=== PATIENT | female | born 1990 | race Caucasian/White ===

== ENCOUNTER 2017-08-29 17:39 | Emergency (ER) | payer MEDICAID, SELFPAY ==
[2017-08-29 17:40] VITALS: BP 140/91; PULSE 102; RESP 16; TEMP 36.6; BMI 48.7
--- NOTE | 2017-08-29 17:59 | ED.VISSUMM ---
- ER Visit Summary Date of Service: 08/29/17 Chief Complaint: [Dental pain] History of Present Illness: The patient is a 27 F [presents to the emergency department chief complaint of dental pain off and on for several years. Patient states that she recently saw an oral surgeon who is going to see her again in September and determine if she will need 1 or 2 extraction surgeries to have her teeth removed. Patient states the pains been off and on but over the last 2 days she has developed discomfort to both right and left lower molars. Patient denies any trauma. She denies any fevers. Patient does complain of cold sensitivity.] Physical Examination: [HEENT-PERRLA, EOMI. Cranial nerves II through XII grossly intact. TMs clear. Mucous membranes moist. No adenopathy. Dentition-patient has broken and carried right and left lower second and third molars that are tender to palpation. There is no evidence of gingival erythema or abscess formation. No facial swelling noted. Cardiovascular-regular rate and rhythm without murmur or ectopy Lungs-clear to auscultation, chest wall stable without crepitus or subcu emphysema Abdomen-normoactive bowel sounds, soft, nontender, no rebound or rigidity, no peritoneal signs. Extremities-intact ?4, normal range of motion, normal pulses, atraumatic] Test Results: [None indicated] Emergency Department Course and Treatment: [I did perform an OARS report on the patient and it was noted that she has only had one prescription in the last year for narcotics.] Treatment Plan: [Patient will be given a prescription for amoxicillin and [place] for pain.] Disposition: [Discharged to home in stable condition] Impression: [Dental pain] This note was generated with [employer] dictation software. It may contain incorrect words, spelling, and punctuation that were not noted in review of the chart prior to signing ED Disposition - Plan for ED Patient: Chief Complaint: Dental Referrals: Mayte Davis MD [Primary Care Provider] -
--- NOTE | 2017-08-29 18:03 | DCINST.ED_ITS ---
ED Disposition - Plan for ED Patient: Chief Complaint: Dental Instructions: ED Tooth Pain Prescriptions: Hydrocodone Bitart/Apap 5-325 [[place] 5/325] 1 - 2 tab PO Q4H PRN PRN #20 tab PRN Reason: Pain Amoxicillin 500 mg PO TID #30 tab Referrals: Mayte Davis MD [Primary Care Provider] - Additional Instructions: see your dentist for follow up in 5-7 days
== END 2017-08-29 18:22 | disposition home or self-care (01) ==
PROVIDERS: Emergency Provider Emergency Medicine; Family Provider Family Medicine; PCP Family Medicine
DX: K08.89 Other specified disorders of teeth and supporting structures (principal); K02.9 Dental caries, unspecified; Z72.0 Tobacco use
CPT/HCPCS: 99282

== ENCOUNTER → 2017-09-08 13:37 | Outpatient (CLI) | payer MEDICAID, SELFPAY ==
[2017-09-08 13:18] VITALS: BP 131/78; BMI 48.4
[2017-09-08 15:52] LABS: hCG Titer Quant., Serum 80 mIU/mL (<9 non-preg)
== END ==
PROVIDERS: Family Provider Family Medicine; PCP Family Medicine; Visit Provider Nurse Practitioner Women's Health
DX: N92.6 Irregular menstruation, unspecified (principal)
CPT/HCPCS: 36415; 84702

== ENCOUNTER → 2017-09-10 10:46 | Outpatient (CLI) | payer MEDICAID, SELFPAY ==
[2017-09-10 11:27] LABS: hCG Titer Quant., Serum 151 mIU/mL (<9 non-preg)
== END ==
PROVIDERS: Family Provider Family Medicine; PCP Family Medicine; Visit Provider Nurse Practitioner Women's Health
DX: Z34.90 Encounter for supervision of normal pregnancy, unspecified, unspecified trimester (principal)
CPT/HCPCS: 36415; 84702

== ENCOUNTER → 2017-10-13 18:39 | Outpatient (CLI) | payer MEDICAID, SELFPAY ==
[2017-10-13 22:50] LABS: Chlamydia Trachomatis by PCR Negative (Negative); Neisserai gonorrhoeae by PCR Negative (Negative); Probe Check PASS; Sample Adequacy Control PASS; Specimen Processing Control PASS
[2017-10-18 10:17] LABS: HPV Reflexed? NOT INDICATED
== END ==
PROVIDERS: Family Provider Family Medicine; PCP Family Medicine; Visit Provider Obstetrics & Gynecology
DX: O09.71 Supervision of high risk pregnancy due to social problems, first trimester (principal); Z12.4 Encounter for screening for malignant neoplasm of cervix
CPT/HCPCS: 87086; 87088; 87491; 87591; 88175; G0145

== ENCOUNTER → 2017-10-19 13:05 | Outpatient (CLI) | payer MEDICAID, SELFPAY ==
[2017-10-19 14:11] LABS: Absolute Lymphocyte Count 2.52 X10^3/ul (0.83-4.51); Basophil# 0.02 X10^3/uL; Basophil% 0.2 % (0-1); Eosinophil# 0.16 X10^3/uL; Eosinophils% 1.8 % (0-5); Hematocrit 37.7 % (37-47); Hemoglobin 12.8 g/dl (12.0-15.0); Lymphocyte # 2.52 X10^3/ul (4.0); Mean Corpuscular Hgb 30.5 pg (27.0-32.0); Mean Corpuscular Volume 89.8 fL (81-99); Monocyte# 0.28 X10^3/uL; Monocyte% 3.1 % (0-10); Neutrophil # 6.01 X10^3/uL (2.7-7.7); Neutrophil % 66.8 % (47-70); Platelet Count 264 K/mm3 (150-450); RBC Distribution Width CV 12.9 % (11.6-14.6); RBC Distribution Width SD 41.5 fl (35.1-43.9)
[2017-10-19 14:12] LABS: POSITIVE COUNT NO; POSITIVE DIFFERENTIAL NO; POSITIVE MORPHOLOGY NO
[2017-10-19 14:39] LABS: Glucose Challenge Gest 1H 50g 119 mg/dL (70-140)
[2017-10-19 15:28] LABS: HIV - WCH Non-Reactive (Nonreactive); Rubella IgG 65.2 IU/mL
[2017-10-20 12:41] LABS: HEPATITIS B SURFACE AG Negative (Negative)
[2017-10-21 03:11] LABS: Rapid Plasmin Reagin (RPR) NONREACTIVE (NONREACTIVE)
== END ==
PROVIDERS: Visit Provider Obstetrics & Gynecology
DX: O09.71 Supervision of high risk pregnancy due to social problems, first trimester (principal)
CPT/HCPCS: 36415; 82950; 85025; 86592; 86703; 86762; 86850; 86900; 87340

== ENCOUNTER → 2017-11-14 13:35 | Outpatient (CLI) | payer MEDICAID, SELFPAY | DX: Z36.82 Encounter for antenatal screening for nuchal translucency (principal) | CPT/HCPCS: 36415 ==

== ENCOUNTER → 2018-01-02 12:53 | Outpatient (CLI) | payer MEDICAID, SELFPAY ==
--- NOTE | 2018-01-02 12:53 | DT_ITS ---
This patient was seen during an EMR downtime January 02, 2018 - January 09, 2018. This patient may have a combination of paper and electronic documentation or all paper documentation. All documentation is viewable within the e-chart portion of [facility] for each patient visit.
--- NOTE | 2018-01-02 13:00 | US_ITS ---
STUDY: SECOND AND THIRD TRIMESTER OBSTETRICAL ULTRASOUND REASON FOR EXAM: Female, 27 years old. ANATOMY LMP: TECHNIQUE: Transabdominal PRIOR ULTRASOUND: None. FINDINGS: There is a single intrauterine fetus. The fetus is in a cephalic presentation. There is demonstrated cardiac activity with a heart rate of 138 bpm. There is a normal amniotic fluid volume. The largest amniotic fluid pocket measures 7.4 cm. The placenta is posterior in location and is not low lying. There are Grade 1 placental changes. The cervix measures 55 mm in length. The adnexal regions are not visualized. BIOMETRY: BPD: 50mm: 21 weeks, 2 days HC: 187mm: 21 weeks, 0 days AC: 156mm: 21 weeks, 6 days FL: 35mm: 21 weeks, 0 days CI: 78 FL/BPD: 68 FL/AC: 22 HC/AC: 1.19 age by current US: 21 weeks, 1 days. ALY by current US: 05.14.18. Estimated weight: 382 grams, +/- 56 grams, 69 %. Age by LMP: 20 weeks, 3 days. ALY by LMP: 05.19.18. ANATOMY: Gender: Female Cranium: Normal lateral ventricles. Normal choroid plexus. Normal cerebellum. Normal cisterna magna. Normal face, nose and lips. Chest: Normal 4-chamber heart. Abdomen/Pelvis: Normal diaphragm. Normal stomach. Normal abdominal wall. Normal cord insertion. Normal 3 vessel cord. Normal kidneys. Normal bladder. Spine: Normal cervical spine. Normal thoracic spine. Normal lumbar spine. Normal sacrum. Extremities: Normal bilateral upper extremities. Normal bilateral lower extremities. US/OB Anatomy Scan IMPRESSION: There is a single live intrauterine with a heart rate of 138 bpm. age by current US: 21 weeks, 1 days. ALY by current US: 18. Normal anatomic survey. Electronically Signed: Moreno Lorenzo MD at 20:55 EDT , Service support ,
== END ==
PROVIDERS: Visit Provider Obstetrics & Gynecology
DX: Z36.89 Encounter for other specified antenatal screening (principal)
CPT/HCPCS: 76805

== ENCOUNTER → 2018-01-03 16:00 | Outpatient (CLI) | payer MEDICAID, SELFPAY ==
--- NOTE | 2018-01-03 16:00 | DT_ITS ---
This patient was seen during an EMR downtime January 02, 2018 - January 09, 2018. This patient may have a combination of paper and electronic documentation or all paper documentation. All documentation is viewable within the e-chart portion of [facility] for each patient visit.
[2018-01-09 21:19] LABS: Amphetamine Urine VISTA NEGATIVE (<1000 ng/mL); Barbiturate Urine VISTA NEGATIVE (< 200 ng/mL); Benzodiazepine Urine VISTA NEGATIVE (< 200 ng/mL); Cocaine Urine VISTA NEGATIVE (< 300 ng/mL); Ecstacy Urine VISTA NEGATIVE (< 500 ng/mL); Methadone Urine VISTA NEGATIVE (< 300 ng/mL); PCP Urine VISTA NEGATIVE (< 25 ng/mL); THC Urine VISTA NEGATIVE (< 50 ng/mL)
== END ==
PROVIDERS: Visit Provider Obstetrics & Gynecology
DX: F19.11 Other psychoactive substance abuse, in remission (principal)
CPT/HCPCS: 80307

== ENCOUNTER → 2018-02-28 18:30 | Outpatient (CLI) | payer MEDICAID, SELFPAY ==
[2018-02-28 19:16] LABS: Amphetamine Urine VISTA NEGATIVE (<1000 ng/mL); Barbiturate Urine VISTA NEGATIVE (< 200 ng/mL); Benzodiazepine Urine VISTA NEGATIVE (< 200 ng/mL); Cocaine Urine VISTA NEGATIVE (< 300 ng/mL); Ecstacy Urine VISTA NEGATIVE (< 500 ng/mL); Methadone Urine VISTA NEGATIVE (< 300 ng/mL); PCP Urine VISTA NEGATIVE (< 25 ng/mL); THC Urine VISTA NEGATIVE (< 50 ng/mL); Vista UDS pH Range 6
== END ==
PROVIDERS: Visit Provider Nurse Practitioner Women's Health
DX: O09.70 Supervision of high risk pregnancy due to social problems, unspecified trimester (principal); Z02.83 Encounter for blood-alcohol and blood-drug test; Z3A.00 Weeks of gestation of pregnancy not specified
CPT/HCPCS: 80307

== ENCOUNTER → 2018-03-14 15:26 | Outpatient (CLI) | payer MEDICAID, SELFPAY ==
[2018-03-14 17:15] LABS: Absolute Lymphocyte Count 1.78 X10^3/ul (0.83-4.51); Absolute Neutrophil Count 5.5 X10^3/uL (2.0-7.7); Basophil# 0.01 X10^3/uL; Basophil% 0.1 % (0-1); Eosinophil# 0.15 X10^3/uL; Eosinophils% 1.8 % (0-5); Hematocrit 34.6 % (37-47); Hemoglobin 11.6 g/dl (12.0-15.0); Lymphocyte # 1.78 X10^3/ul (4.0); Lymphocyte % 21.8 % (19-41); Mean Corp Hgb Conc 33.5 g/gl (32-36); Mean Corpuscular Hgb 30.8 pg (27.0-32.0); Mean Corpuscular Volume 91.8 fL (81-99); Monocyte# 0.73 X10^3/uL; Monocyte% 8.9 % (0-10); Neutrophil # 5.47 X10^3/uL (2.7-7.7); Neutrophil % 67.2 % (47-70); Platelet Count 266 K/mm3 (150-450); RBC Distribution Width CV 13.6 % (11.6-14.6); RBC Distribution Width SD 44.9 fl (35.1-43.9); Red Blood Count 3.77 M/mm3 (4.2-5.4); White Blood Count 8.2 K/mm3 (4.4-11.0)
[2018-03-14 17:17] LABS: POSITIVE COUNT NO; POSITIVE DIFFERENTIAL NO; POSITIVE MORPHOLOGY NO
[2018-03-14 17:23] LABS: Glucose Challenge Gest 1H 50g 110 mg/dL (70-140)
== END ==
PROVIDERS: Visit Provider Nurse Practitioner Women's Health
DX: O09.70 Supervision of high risk pregnancy due to social problems, unspecified trimester (principal); Z3A.00 Weeks of gestation of pregnancy not specified
CPT/HCPCS: 36415; 82950; 85025

== ENCOUNTER → 2018-03-24 16:44 | Outpatient (CLI) | payer MEDICAID, SELFPAY | PROVIDERS: Family Provider Family Medicine; PCP Family Medicine; Visit Provider Obstetrics & Gynecology | DX: Z68.42 Body mass index [BMI] 45.0-49.9, adult (principal) | CPT/HCPCS: 76816 ==

== ENCOUNTER 2018-04-03 18:35 | Outpatient (CLI) | payer MEDICAID, SELFPAY ==
[2018-04-03 19:03] VITALS: BMI 48.9
[2018-04-03 19:47] LABS: Glucose, Dipstick Normal (Normal); Ketone-Dipstick 15 mg/dl (Negative); Leukocyte Esterase-Dipstick 500 /ul (Negative); Nitrite-Dipstick Negative (Negative); Occult Blood-Urine 50 /ul (Negative); Protein-Dipstick 30 mg/dl (Negative); Urine Urobilinogen 4 mg/dl (Normal)
[2018-04-03 19:49] LABS: Color, Urine Yellow (Yellow); Urine Bilirubin Dipstick 1 mg/dL (Negative); Urine Clarity Clear (Clear)
[2018-04-03 20:28] LABS: Fetal Fibronectin Negative
[2018-04-03] MEDS: Cephalexin Suspension 250 MG/5 ML PO.SYRINGE 500 MG PO (21:15)
--- NOTE | 2018-04-03 21:37 | OB.TRI.NOTE ---
- Problem List (1) 33 weeks gestation of Status: Acute History of Present Illness Date of Service: 04/03/18 Was patient seen by the physician?: No Reason For Visit: R/O LABOR Final ALY: 05/19/18 Gestational age: 33 Weeks and 3 Days History of Present Illness: 27yo @ 33 3/7wga with c/o pelvic pressure. Denies vaginal bleeding, leaking of fluid. Fetus active. Allergies No Known Allergies Allergy (Verified 03/28/18 16:07) - Pertinent Past Medical History Medical History: Past Medical History (Last Reviewed 03/28/18 @ 16:08 by Yanni Linton) Preeclampsia NST - FHR Rate Baby A Baseline: 120 Variability:: Moderate Accelerations:: 15 x 15 Decelerations:: None NST Reactive:: Yes FHR Category:: Category I Uterine Activity:: 0/10 min Impression/Plan 89yo @ 33 3/7wga with acute cystitis, Cat I FHR -FFN negative -U/A c/w UTI -Single dose Cephalexin administered, rx placed for outpatient therapy -d/c home -Consider outpatient LFTs given elevated bili on U/A.
== END 2018-04-03 21:20 | disposition home or self-care (01) ==
LOC: WPOUT 18:44 → WP 18:46
PROVIDERS: Family Provider Family Medicine; PCP Family Medicine; Visit Provider Obstetrics & Gynecology
DX: O23.13 Infections of bladder in pregnancy, third trimester (principal); N30.00 Acute cystitis without hematuria; Z3A.33 33 weeks gestation of pregnancy
CPT/HCPCS: 59025; 59050; 81002; 82731; 99218; G0378

== ENCOUNTER 2018-04-05 15:30 | Outpatient (CLI) | payer MEDICAID, SELFPAY ==
[2018-04-05 16:11] VITALS: BMI 49.0
[2018-04-05] MEDS: Lactated Ringers 1,000 ML 999 ML IV (16:13)
[2018-04-05 17:11] LABS: Absolute Lymphocyte Count 2.17 X10^3/ul (0.83-4.51); Absolute Neutrophil Count 7.7 X10^3/uL (2.0-7.7); Basophil# 0.02 X10^3/uL; Basophil% 0.2 % (0-1); Eosinophil# 0.21 X10^3/uL; Hematocrit 33.6 % (37-47); Hemoglobin 11.4 g/dl (12.0-15.0); Lymphocyte # 2.17 X10^3/ul (4.0); Lymphocyte % 20.5 % (19-41); Mean Corp Hgb Conc 33.9 g/gl (32-36); Mean Corpuscular Volume 91.3 fL (81-99); Mean Platelet Vol. 9.1 fl (6.2-12.0); Monocyte# 0.48 X10^3/uL; Monocyte% 4.5 % (0-10); Neutrophil # 7.67 X10^3/uL (2.7-7.7); Neutrophil % 72.5 % (47-70); Platelet Count 228 K/mm3 (150-450); RBC Distribution Width CV 13.6 % (11.6-14.6); RBC Distribution Width SD 44.1 fl (35.1-43.9); Red Blood Count 3.68 M/mm3 (4.2-5.4); White Blood Count 10.6 K/mm3 (4.4-11.0)
[2018-04-05 17:43] LABS: Fibrinogen 564 mg/dl (203-444)
[2018-04-05 17:47] LABS: POSITIVE COUNT NO; POSITIVE DIFFERENTIAL NO; POSITIVE MORPHOLOGY NO
[2018-04-05 18:16] LABS: Amphetamine Urine VISTA NEGATIVE (<1000 ng/mL); Barbiturate Urine VISTA NEGATIVE (< 200 ng/mL); Benzodiazepine Urine VISTA NEGATIVE (< 200 ng/mL); Cocaine Urine VISTA NEGATIVE (< 300 ng/mL); Ecstacy Urine VISTA NEGATIVE (< 500 ng/mL); Methadone Urine VISTA NEGATIVE (< 300 ng/mL); PCP Urine VISTA NEGATIVE (< 25 ng/mL); THC Urine VISTA NEGATIVE (< 50 ng/mL); Vista UDS pH Range 6
--- NOTE | 2018-04-06 17:09 | OB.TRI.NOTE ---
- Problem List (1) Threatened labor Status: Acute History of Present Illness Date of Service: 04/05/18 Reason For Visit: R/O LABOR History of Present Illness: co ctx and had questionable heart rate pattern in the office Allergies No Known Allergies Allergy (Verified 04/05/18 14:53) - Pertinent Past Medical History Medical History: Past Medical History (Last Reviewed 04/05/18 @ 14:53 by Macy Amezcua) Preeclampsia NST - FHR Rate Baby A Baseline: 140 Variability:: Moderate Accelerations:: 15 x 15 Decelerations:: None NST Reactive:: Yes FHR Category:: Category I Uterine Activity:: irregular Impression/Plan threatened labor. reassuring FHT tracing. labs WNL. reactive nst dc home
== END 2018-04-05 18:25 | disposition home or self-care (01) ==
LOC: WPOUT 15:33 → WP 15:33
PROVIDERS: Family Provider Family Medicine; PCP Family Medicine; Visit Provider Obstetrics & Gynecology
DX: O60.00 Preterm labor without delivery, unspecified trimester (principal); Z3A.00 Weeks of gestation of pregnancy not specified
CPT/HCPCS: 96360; 96361; 36415; 59025; 59050; 80307; 85025; 85384; 86850; 86900; 99218; J7120; G0378

== ENCOUNTER 2018-04-16 20:05 | Outpatient (CLI) | payer MEDICAID, SELFPAY ==
[2018-04-16 20:29] VITALS: BMI 49.8
[2018-04-16 20:43] LABS: Red Blood Cells-Urine 0 SEEN /hpf (0-5)
[2018-04-16 20:46] LABS: Color, Urine Yellow (Yellow); Glucose, Dipstick Normal (Normal); Ketone-Dipstick 5 mg/dl (Negative); Leukocyte Esterase-Dipstick 500 /ul (Negative); Nitrite-Dipstick Negative (Negative); Occult Blood-Urine 10 /ul (Negative); Protein-Dipstick 30 mg/dl (Negative); Specific Gravity, Urine 1.025 (1.002-1.030); Urine Bilirubin Dipstick Negative (Negative); Urine Clarity Sl. Cloudy (Clear); Urine Urobilinogen 4 mg/dl (Normal); Urine pH 6.5 (5.0 - 8.0)
[2018-04-16 20:54] LABS: Bacteria 1+ /hpf (None Seen); Mucous, Urine 1+ /hpf (<or=2+); Squamous Epithelial Cells - UA 10-25 SEEN /hpf (5-10); White Blood Cells 0-5 SEEN /hpf (0-5)
[2018-04-16 20:55] LABS: Calcium Oxalate Crystals Ur 2+ /hpf (<or=2+)
[2018-04-16] MEDS: Nitrofurantoin Macrocrystals 100 MG Capsule PO (21:34)
--- NOTE | 2018-04-20 22:37 | OB.TRI.NOTE ---
- Problem List (1) Threatened labor Status: Acute History of Present Illness Date of Service: 04/16/18 Reason For Visit: R/O LABOR Date of Service: 04/16/18 History of Present Illness: co ctx Allergies No Known Allergies Allergy (Verified 04/11/18 15:42) - Pertinent Past Medical History Medical History: Past Medical History (Last Reviewed 04/11/18 @ 15:43 by Heather Braun) Preeclampsia NST - FHR Rate Baby A Baseline: 130 Variability:: Moderate Accelerations:: 15 x 15 Decelerations:: None NST Reactive:: Yes FHR Category:: Category I Uterine Activity:: irregular Impression/Plan threatened PTL no cervical change reactive nst dc home
== END 2018-04-16 21:35 | disposition home or self-care (01) ==
LOC: WPOUT 20:26 → WP 20:28
PROVIDERS: Family Provider Family Medicine; PCP Family Medicine; Visit Provider Obstetrics & Gynecology
DX: O60.03 Preterm labor without delivery, third trimester (principal); Z3A.00 Weeks of gestation of pregnancy not specified
CPT/HCPCS: 59025; 59050; 81001; 87086; 87088; 99218; G0378

== ENCOUNTER → 2018-04-25 19:05 | Outpatient (CLI) | payer MEDICAID, SELFPAY ==
[2018-04-25 19:39] LABS: Protein, Urine (Random) 9.3 mg/dL (<11.9); Protein:Creat Ratio 174 mg/g CRE (0-200)
[2018-04-25 20:38] LABS: Group B Strep DNA By PCR Negative (Negative); Internal Control PASS; Probe Check PASS; Specimen Processing Control PASS
[2018-04-25 21:35] LABS: Chlamydia Trachomatis by PCR Negative (Negative); Neisserai gonorrhoeae by PCR Negative (Negative); Probe Check PASS; Sample Adequacy Control PASS; Specimen Processing Control PASS
== END ==
PROVIDERS: Referring Provider Nurse Practitioner Women's Health; Visit Provider Nurse Practitioner Women's Health
DX: O09.71 Supervision of high risk pregnancy due to social problems, first trimester (principal); R80.9 Proteinuria, unspecified; Z11.3 Encounter for screening for infections with a predominantly sexual mode of transmission
CPT/HCPCS: 82570; 84156; 87081; 87491; 87591; 87653

== ENCOUNTER 2018-05-05 16:25 | Outpatient (CLI) | payer MEDICAID, SELFPAY ==
[2018-05-05 16:45] VITALS: BMI 50.3
--- NOTE | 2018-05-09 12:34 | OB.TRI.NOTE ---
History of Present Illness Date of Service: 05/05/18 Reason For Visit: R/O LABOR History of Present Illness: co ctx Allergies No Known Allergies Allergy (Verified 05/02/18 14:55) - Pertinent Past Medical History Medical History: Past Medical History (Last Reviewed 05/02/18 @ 14:56 by Yanni Linton) Preeclampsia NST - FHR Rate Baby A Baseline: 140 Variability:: Moderate Accelerations:: 15 x 15 Decelerations:: None NST Reactive:: Yes FHR Category:: Category I Uterine Activity:: irregular Impression/Plan false labor no cervical change dc home labor precautions
== END 2018-05-05 17:20 | disposition home or self-care (01) ==
LOC: WPOUT 16:30 → WP 16:30
PROVIDERS: Referring Provider Obstetrics & Gynecology; Visit Provider Obstetrics & Gynecology
DX: O47.9 False labor, unspecified (principal); Z3A.00 Weeks of gestation of pregnancy not specified
CPT/HCPCS: 59025; 59050; 99218; G0378

== ENCOUNTER → 2018-05-09 08:57 | Outpatient (CLI) | payer MEDICAID, SELFPAY ==
--- NOTE | 2018-05-09 08:58 | US_ITS ---
STUDY: SECOND AND THIRD TRIMESTER OBSTETRICAL ULTRASOUND - LIMITED REASON FOR EXAM: Female, 27 years old. well-being. 6, para 5. LMP: 08/02/2017 PRIOR ULTRASOUND: 03/24/2018. TECHNIQUE: Transabdominal. chief technologist documented limited ultrasound study due to patient body habitus. TECHNICAL QUALITY: Adequate. FINDINGS: There is a single intrauterine fetus. The fetus is in a cephalic presentation. There is demonstrated cardiac activity with a heart rate of 143 bpm. There is a normal amniotic fluid volume. The largest amniotic fluid pocket measures 6.0 cm. The amniotic fluid index (POLO) is 12.7 cm. The placenta is fundal There are Grade 1 placental changes. The cervix measures 3.2 cm in length. BIOMETRY: BPD: 9.4: 38 weeks, 4 days HC: 34.3: 39 weeks, 5 days AC: 37.3: 41 weeks, 2 days FL: 7.2: 36 weeks, 6 days Age by LMP: 38 weeks, 4 days. ALY by LMP: 05/19/2018. age by prior US: 39 weeks, 2 days. ALY by prior US: 05/14/2018. age by current US: 39 weeks, 1 days. ALY by current US: 05/15/2018. Estimated weight: 3897 grams, +/- 569 grams, 90 percentile. US/OB Limited With Biometrics IMPRESSION: Live intrauterine with normal-appearing growth (90th percentile EFW) and heart rate 143 BPM as described. Placenta appears fundal. Electronically Signed: Roel Espinoza, at 10:54 EDT Tel , Service support ,
== END ==
PROVIDERS: Visit Provider Obstetrics & Gynecology
DX: O09.70 Supervision of high risk pregnancy due to social problems, unspecified trimester (principal); O99.330 Smoking (tobacco) complicating pregnancy, unspecified trimester; Z3A.00 Weeks of gestation of pregnancy not specified
CPT/HCPCS: 76816

== ENCOUNTER 2018-05-14 10:05 | Outpatient (CLI) | payer MEDICAID, SELFPAY ==
[2018-05-14 11:46] VITALS: BMI 50.3
--- NOTE | 2018-05-15 21:35 | OB.TRI.NOTE ---
- Problem List (1) False labor Status: Acute History of Present Illness Date of Service: 05/14/18 Reason For Visit: R/O LABOR History of Present Illness: Complaint of contractions Allergies No Known Allergies Allergy (Verified 05/15/18 13:27) - Pertinent Past Medical History Medical History: Past Medical History (Last Reviewed 05/15/18 @ 13:27 by Zoraida Browne) Preeclampsia NST - FHR Rate Baby A Baseline: 140 Variability:: Moderate Accelerations:: 15 x 15 Decelerations:: None NST Reactive:: Yes FHR Category:: Category I Uterine Activity:: Irregular contractions Impression/Plan False labor no cervical change reassuring heart tones category 1 tracing DC home labor precautions reviewed
== END 2018-05-14 11:45 | disposition home or self-care (01) ==
LOC: WPOUT 10:51 → WP 05-16 10:22
PROVIDERS: Visit Provider Obstetrics & Gynecology
DX: O47.9 False labor, unspecified (principal); Z3A.00 Weeks of gestation of pregnancy not specified
CPT/HCPCS: 59025; 59050; 99218; G0378

== ENCOUNTER 2018-05-17 19:04 | Inpatient (IN) | payer MEDICAID, SELFPAY ==
[2018-05-17 19:07] VITALS: BMI 50.7
[2018-05-17] MEDS: Lactated Ringers 1,000 ML 50 ML IV (19:50)
[2018-05-17 20:05] LABS: Hematocrit 36.5 % (37-47); Hemoglobin 12.2 g/dl (12.0-15.0); Mean Corp Hgb Conc 33.4 g/gl (32-36); Mean Corpuscular Hgb 30.5 pg (27.0-32.0); Mean Corpuscular Volume 91.3 fL (81-99); Mean Platelet Vol. 8.7 fl (6.2-12.0); Platelet Count 252 K/mm3 (150-450); RBC Distribution Width CV 14.2 % (11.6-14.6); White Blood Count 11.9 K/mm3 (4.4-11.0)
[2018-05-17 20:06] LABS: Scan Indicated on CBC? Y/N NO
--- NOTE | 2018-05-17 21:56 | PCM.HP.OB ---
- Problem List (1) Active labor at term Status: Acute (2) Trichimoniasis Status: Acute Comment: Treated flagyl X 3 times. Persistent positive and refuses further treatment. Not sexually active since 16 wk (3) BMI 45.0-49.9, adult Status: Acute Comment: 1st tm glucola discussed healthy weight gain in (4) Supervision of high risk due to social problems Status: Acute Qualifiers: Comment: PRR ALY 05/19/18 PC Renato (doesn't have custody of others) boyfriend- Emmanuel (5) Tobacco use complicating Status: Acute Qualifiers: Comment: encouraged cessation. 11/10 down to 3-4 cig/day 02/28 using patches. 1 cig per day or less History Date of Admission: 10/10/13 Final ALY: 05/19/18 Gestational age: 39 Weeks and 5 Days History of this : This is a 27 year-old, at 39 weeks presents IAL 4 cm with SROM clear fluid. she denies any vb lof good fm co regular ctx Medical History: Medical History (Last Reviewed 05/15/18 @ 13:27 by Zoraida Browne) Preeclampsia O14.90 Allergies No Known Allergies Allergy (Verified 05/17/18 19:39) Home Medications: Home Medications vitamin,calcium,xcmzppdv-ppmk-xumcl acid tablet 1 tab PO QDAY 11/10/17 Smoking Status: Heavy Smoker (>10/day) Alcohol: None Number of Fetus(es): 1 Heart Tracins moderate variability reactive no decels. cat I tracing TOCO Analysis: q 2-4 History Past Pregnancies: Past PregnanciesPregancy History 6 Elective abortions Hx Para 5 Spontaneous abortions Hx # Term Pregnancies Ectopic pregnancies Hx # Pregnancies Multiple births # of living children Past Pregnancies Del. Date Name GA/Weeks Outcome Route Bth Weight Infant Gen Labor Lgth Anesthesia Del Locatn Provider FOB Unknown 2004 Cruz live - full term 8 lbs 8 Unknown 2008 Tiffanie live - full term 7 lbs 3 ounces Unknown 2009 Josekaiser Feldern 39 live - full term 7lbs 4 ounces Unknown 2011 Laz live - full term 8 lbs 9 ounces Unknown 2013 Renato live - full term 5lbs 6 ounces Delivery Date: On 10/13/17 @ 14:25 Michaela Carrillo has custody Delivery Date: On 10/13/17 @ 14:25 Michaela Carrillo adopted out Delivery Date: On 10/13/17 @ 14:24 Michaela Carrillo adopted out Delivery Date: On 10/13/17 @ 14:24 Michaela Carrillo grandma has custody Delivery Date: On 10/13/17 @ 14:26 Michaela Carrillo preeclampsia, grandmother has custody Labs: Mom's Problem List Problem Status Onset Code Active labor at term Acute Mom's Labs & Results 05/17/18 05/17/18 19:50 19:50 WBC 11.9 H RBC 4.00 L Hgb 12.2 Hct 36.5 L MCV 91.3 MCH 30.5 MCHC 33.4 RDW 14.2 RDW Differential 47.0 H Plt Count 252 MPV 8.7 Blood Type O POSITIVE Antibody Screen NEGATIVE Course Did the patient receive Yes care? Labs Blood Type: O RH: POSITIVE RPR/VDRL/Syphilis Nonreactive Rubella status Immune HbSAg Negative Date Done: 10/19/17 Chlamydia Negative Gonorrhea Negative HIV/AIDS Non-Reactive Group B Strep: Negative Current Obstetrical History Gestational Diabetes No Incompetent Cervix No Infertility No IUGR No Macrosomia No Hypertension/Pre-eclampsia No Placenta Previa/Abruption No PTL/PROM No Uterine anomaly No Oligohydramnios No Polyhydramnios No Multiple gestation No Past Medical History Asthma Yes: exercise-induced Diabetes No Hypertension No Heart disease No Mitral valve prolapse Yes Neurologic/Seizure disorder/ No Migraines Kidney disease No Liver disease No Varicosities No Clotting disorders/Hx of DVT No Thyroid Dysfunction No Other medical diseases No Psychiatric disorders No Major trauma No Abnormal PAP smear Yes: 14 y ago Sleep apnea No Mammogram in the last 2 years No Medications Taken During Dose/Freq.: [Flagyl] x3 Last Date/Time of Medication 05/18 Taken: [Flagyl] Reason for taking medication [ -3 courses taken during this , taken for Flagyl] trich infection Social History Marital Status: SINGLE Alleged father Emmanuel Reinoso Hx Smoking Yes Smoking Status Heavy Smoker (>10/day) Expected Delivery Method: Spontaneous Vaginal Describe any other labor & delivery plans:: OB Visit. ALY Calculator. Estimated Delivery Date 05/19/18. Based on LMP (certain) 08/12/17. Current WG 39w 3d. Number 1. Expected Delivery Route/Plan. . Specific Issue/Plans. flu vaccine declined. minichart given: yes. tdap vaccine: []. rhogam: NA. LARC form signed: []. labor support person:Emmanuel. pain management: natural. cut cord/dad catch: []. : yes. PP control planned: []. special requests: [] Review of Systems Constitutional: Denies: Fever, Malaise Eyes: Denies: Blurred vision, Vision Change HEENT: Denies: Head Aches, Visual Changes Cardiovascular: Denies: Chest Pain, Palpitations Respiratory: Denies: Cough, Shortness of Breath, Wheezing Gastrointestinal: Denies: Abdominal Pain, Diarrhea, Nausea, Vomiting Genitourinary: Denies: Dysuria, Hematuria Musculoskeletal: Denies: Joint Pain, Muscle pain Skin: Denies: Lesions, Rash Neurological: Denies: Blurred vision, Focal weakness, Headaches Psychiatric: Denies: Anxiety, Depression Endocrine: Denies: Heat/ Cold Intolerance Hematologic/ Lymphatic: Denies: Easy Bruising, Easy Bleeding Physical Exam General: Alert, Cooperative, No apparent distress HEENT: Atraumatic, Normocephalic. Negative for: Thyromegaly, Lymphadenopathy Cardiovascular: Regular rate Lungs: Normal air movement Abdomen: Soft, Non Tender, Gravid Neurological: Deep Tendon Reflexes 2+/4 and Symmetrical, Neuro grossly intact. Negative for: Clonus BAKERY DEMONSTRATOR: Normal external genitalia. Negative for: Vulvar lesions Estimated gestational size: Appropriate for gestational size Presentation: Cephalic Assessment/Plan All Active Problems (Last Reviewed 05/15/18 @ 13:27 by Zoraida Browne) False labor (Acute) Active labor at term (Acute) Threatened labor (Acute) 33 weeks gestation of (Acute) Trichimoniasis (Acute) BMI 45.0-49.9, adult (Acute) Supervision of high risk due to social problems (Acute) Tobacco use complicating (Acute) screening encounter (Resolved) This is a 27 year-old, at 39 weeks gestational age presents IAL admit IAL epi if desired, pit PRN. srom clear fluid, exp managment. aids social worker consult.
[2018-05-17] MEDS: Oxytocin 30 units/NS 500 ml 30 UNITS/500 ML IV.SOLN IV (22:00)
[2018-05-17] MEDS: Nalbuphine 10 MG/ML Ampul IV (22:49)
--- NOTE | 2018-05-17 23:30 | PCM.OB.VAG ---
- Problem List (1) Active labor at term Status: Acute (2) Trichimoniasis Status: Acute Comment: Treated flagyl X 3 times. Persistent positive and refuses further treatment. Not sexually active since 16 wk (3) BMI 45.0-49.9, adult Status: Acute Comment: 1st tm finesse discussed healthy weight gain in (4) Supervision of high risk due to social problems Status: Acute Qualifiers: Comment: PRR ALY 05/19/18 PC Renato (doesn't have custody of others) boyfriend- Emmanuel (5) Tobacco use complicating Status: Acute Qualifiers: Comment: encouraged cessation. 11/10 down to 3-4 cig/day 02/28 using patches. 1 cig per day or less Vaginal Delivery Maternal Presentation: Active Labor 27-year-old at 39 weeks 5 days presents in active labor Amniotic Membrane Rupture Type: Spontaneous Amniotic Fluid Description: Clear Final ALY: 05/19/18 Gestational age: 39 Weeks and 5 Days Date of Procedure: 05/17/18 Pre-Operative Diagnosis: In active labor Post-Operative Diagnosis: Same Surgery/ Procedure Performed: Spontaneous Vaginal Delivery Type of Anesthesia: None Description of Procedure: Patient began pushing and delivered the head in the ZAIN presentation. The head was delivered atraumatically. The anterior and posterior shoulders delivered without complication followed by the rest of the and the infant was placed on the maternal abdomen. Delayed cord clamping was employed for approximately 60 seconds. Cord was clamped and cut and gentle traction was applied to the cord and the placenta delivered spontaneously immediately following it was noted to be intact with three-vessel cord. The perineum and vagina were inspected and noted to have no laceration. EBL was 100 cc. Patient and tolerated delivery well. Presentation: ZAIN Placental Delivery Description: Spontaneous Placenta Disposition: [facility] Cord Vessel Description: 3 Vessels Cord Entanglement: None Estimated Blood Loss: 100 Infant A gender: Female Episiotomy Description: None Laceration: None Medications given after delivery: IV Pitocin Complications: None
[2018-05-17] MEDS: Oxytocin 30 units/NS 500 ml 30 UNITS/500 ML IV.SOLN 334 UNITS IV (23:36)
[2018-05-18] MEDS: Oxytocin 30 units/NS 500 ml 30 UNITS/500 ML IV.SOLN 167 UNITS IV (00:06)
[2018-05-18 04:43] VITALS: BP 117/59; PULSE 61; RESP 16; TEMP 36
[2018-05-18 07:51] VITALS: O2SAT 97
[2018-05-18 07:55] VITALS: BP 123/72; PULSE 71; RESP 16; TEMP 36.1; O2SAT 97
--- NOTE | 2018-05-18 08:37 | PCM.PN.OB ---
Patient Problems: Active and Suspected Problems (Last Reviewed 05/15/18 @ 13:27 by Zoraida Browne) Active labor at term (Acute) Subjective: Doing well. Pain controlled. No SOB, CP. - Physical Exam General: Alert, Oriented x3 Abdomen: Soft, Non Tender, - - FF below U Vital Signs Temp Pulse Resp BP Pulse Ox 97.0 F L 71 16 123/72 H 97 05/18/18 07:55 05/18/18 07:55 05/18/18 07:55 05/18/18 07:55 05/18/18 07:55 Oxygen Delivery Method Room Air Weight: 314 lb 6 oz Body Mass Index (BMI) 50.7 Intake and Output for Last 24 Hours 05/16/18 05/17/18 05/18/18 23:59 23:59 23:59 Intake Total 1131 / 1131 Output Total 900 / 900 Balance 231 / 231 Laboratory Tests Past 24 Hrs 05/17/18 05/17/18 19:50 19:50 WBC 11.9 H RBC 4.00 L Hgb 12.2 Hct 36.5 L MCV 91.3 MCH 30.5 MCHC 33.4 RDW 14.2 RDW Differential 47.0 H Plt Count 252 MPV 8.7 Blood Type O POSITIVE Antibody Screen NEGATIVE Medical Necessity - Tobacco Use Smoking Status: Heavy Smoker (>10/day) Assessment/Plan All Active Problems (Last Reviewed 05/15/18 @ 13:27 by Zoraida Browne) False labor (Acute) Active labor at term (Acute) Threatened labor (Acute) 33 weeks gestation of (Acute) Trichimoniasis (Acute) BMI 45.0-49.9, adult (Acute) Supervision of high risk due to social problems (Acute) Tobacco use complicating (Acute) screening encounter (Resolved) PPD#1: Routine care. Up to SCN- with resp issue/low O2.
[2018-05-18 12:35] VITALS: BP 118/58; PULSE 75; RESP 18; TEMP 36.1; O2SAT 97
[2018-05-18 17:15] VITALS: BP 124/56; PULSE 81; RESP 24; TEMP 36.2
[2018-05-18 22:00] VITALS: BP 109/47; PULSE 64; RESP 18; TEMP 36.2; O2SAT 96
[2018-05-19 02:10] VITALS: BP 117/62; PULSE 72; RESP 18; TEMP 36.6; O2SAT 97
--- NOTE | 2018-05-19 05:27 | DCINST_ITS ---
Discharge Diet: No Restrictions Discharge Activity: Return to Normal Activity, May not drive while taking narcotic pain medications., May Shower May resume sexual activity in: 4-6 weeks Call your doctor if your incision/area has: Continuous Slow Oozing, Sudden Increased Bleeding, Increased Pain/ Swelling, Increased Redness, Foul Smelling Discharge Additional Instructions: If you experience any of the following, contact your healthcare provider. * Bleeding that soaks a pad every hour for 2 hours * Fever 100.4 or higher * Unrelieved incision or abdominal pain * Swelling, redness, discharge or bleeding from your incision or episiotomy site * Your incision begins to separate * Problems urinating (including inability to urinate or burning while urinating). * Visual changes * Severe headache * Flu-like symptoms * Pain or redness in one of both of your breasts * Pain, warmth, tenderness or swelling in your legs, especially the calf area * Frequent nausea and vomiting * Symptoms of depression or anxiety If you experience any of the following, call 911 or go to the nearest Emergency Room. * Chest pain * Problems breathing * Seizure activity * Partial or complete paralysis of a body part, slurred speech, weakness or drooping of the face, or a sudden inability to walk or hold your balance Allergies/Adverse Reactions: Allergies No Known Allergies Allergy (Verified 05/17/18 19:39) Medications to take at Discharge vitamin,calcium,ytlvfmqw-wkiv-wflan acid tablet 1 tab PO QDAY 11/10/17 Naproxen [Naprosyn] 250 - 500 mg PO Q8H PRN PRN #30 tablet 05/19/18 The following prescriptions were given: Naproxen [Naprosyn] 250 - 500 mg PO Q8H PRN PRN #30 tablet PRN Reason: MILD PAIN Please Follow Up With: Michaela Carrillo MD - [phone] When: Call to make an appointment with your doctor in 6 weeks. If you had elevated Blood pressure or 4th degree laceration you will need to be seen in 2 weeks. Primary Care Physician: Care Physician,No Primary [Primary Care Provider] - Test Results: Test results from this visit will be discussed in further detail at your follow- up appointment, if applicable.
--- NOTE | 2018-05-19 05:27 | PCM.DCVAG ---
Discharge Diet: No Restrictions Discharge Activity: Return to Normal Activity, May not drive while taking narcotic pain medications., May Shower May resume sexual activity in: 4-6 weeks Call your doctor if your incision/area has: Continuous Slow Oozing, Sudden Increased Bleeding, Increased Pain/ Swelling, Increased Redness, Foul Smelling Discharge Additional Instructions: If you experience any of the following, contact your healthcare provider. Bleeding that soaks a pad every hour for 2 hours Fever 100.4 or higher Unrelieved incision or abdominal pain Swelling, redness, discharge or bleeding from your incision or episiotomy site Your incision begins to separate Problems urinating (including inability to urinate or burning while urinating). Visual changes Severe headache Flu-like symptoms Pain or redness in one of both of your breasts Pain, warmth, tenderness or swelling in your legs, especially the calf area Frequent nausea and vomiting Symptoms of depression or anxiety If you experience any of the following, call 911 or go to the nearest Emergency Room. Chest pain Problems breathing Seizure activity Partial or complete paralysis of a body part, slurred speech, weakness or drooping of the face, or a sudden inability to walk or hold your balance Allergies/Adverse Reactions: Allergies No Known Allergies Allergy (Verified 05/17/18 19:39) Medications to take at Discharge vitamin,calcium,uoiycacj-yyjz-nyuaj acid tablet 1 tab PO QDAY 11/10/17 Naproxen [Naprosyn] 250 - 500 mg PO Q8H PRN PRN #30 tablet 05/19/18 The following prescriptions were given: Naproxen [Naprosyn] 250 - 500 mg PO Q8H PRN PRN #30 tablet PRN Reason: MILD PAIN Please Follow Up With: Michaela Carrillo MD - [phone] When: Call to make an appointment with your doctor in 6 weeks. If you had elevated Blood pressure or 4th degree laceration you will need to be seen in 2 weeks. Primary Care Physician: Care Physician,No Primary [Primary Care Provider] - Test Results: Test results from this visit will be discussed in further detail at your follow-up appointment, if applicable.
[2018-05-19 10:00] VITALS: BP 101/53; PULSE 76; RESP 16; TEMP 36.3
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
--- NOTE | 2018-05-19 13:55 | CASEMGMT ---
Social Work Labor and Delivery Unit Summary of Family/Staff/Agency Contact: Call to [facility] at 1320 and spoke with Rosette in the intake department about of this baby, mother of baby (MOB) reporting to have an open case, that ongoing worker has been to hospital to check things out per the MOB's report. Concern for MOB currently living in homeless snf as well as past history of losing custody of all older children (though did obtain custody back of the 4 year old on 2 different occasions). Rosette reports will check on status of this family and have someone call this policy writer. Assessment: Received call from Rosette at [facility] who reports that case has been discussed, the ongoing worker is aware of this family and situation, and that per [facility] it is okay for baby to discharge to [facility]. Let Rosette know that discharge could potentially happen this weekend. [facility] aware and no identified concerns with plan. [facility] will continue to follow this family at this time in the community. Plan: MOB is being discharged today. Social work to continue to follow family while on the SCN, though not anticipating any additional needs or concerns at this time. No other services requested or indicated from [facility] perspective. -EDEL Hogan, [employer]
== END 2018-05-19 14:00 | disposition home or self-care (01) | DRG 560 ==
LOC: WPOUT 19:05
PROVIDERS: Admitting Provider Obstetrics & Gynecology; Referring Provider Obstetrics & Gynecology; Visit Provider Obstetrics & Gynecology
DX: O98.32 Other infections with a predominantly sexual mode of transmission complicating childbirth (principal); A59.9 Trichomoniasis, unspecified; O99.334 Smoking (tobacco) complicating childbirth; Z3A.39 39 weeks gestation of pregnancy; Z37.0 Single live birth
CPT/HCPCS: 59025; 59050; 85027; 86850; 86900; 99218; J7120; G0378

== ENCOUNTER → 2018-07-19 17:27 | Outpatient (CLI) | payer MEDICAID, SELFPAY ==
[2018-07-19 13:20] VITALS: BMI 47.9
[2018-07-19 21:21] LABS: Chlamydia Trachomatis by PCR Negative (Negative); Neisserai gonorrhoeae by PCR Negative (Negative); Probe Check PASS; Sample Adequacy Control PASS; Specimen Processing Control PASS
[2018-07-27 14:39] LABS: HPV Reflexed? NOT INDICATED
== END ==
PROVIDERS: Referring Provider Nurse Practitioner Women's Health; Visit Provider Nurse Practitioner Women's Health
DX: Z12.4 Encounter for screening for malignant neoplasm of cervix (principal); Z11.3 Encounter for screening for infections with a predominantly sexual mode of transmission
CPT/HCPCS: 87491; 87591; 87624; 88175; G0145

== ENCOUNTER 2018-08-18 12:13 | Emergency (ER) | payer MEDICAID, SELFPAY ==
[2018-07-19 13:20] VITALS: BMI 47.9
[2018-08-18 12:15] VITALS: BP 133/70; PULSE 103; RESP 18; TEMP 36.7; O2SAT 98; BMI 45.1
--- NOTE | 2018-08-18 12:32 | ED.DCSUM_ITS ---
- ER Visit Summary Date of Service: 08/18/18 Chief Complaint: Dental pain History of Present Illness: The patient is a 28 F with bilateral molar dental pain. This has been an ongoing issue for this patient. She was referred to the emergency department because her pain was out of control. No tongue elevation or trouble with breathing or swallowing. Physical Examination: Patient has multiple mandibular dental fractures secondary to underlying decay. No abscess. Airway intact. Neck non-tender. Good range of motion. No lymphadenopathy or meningeal findings. Test Results: None indicated Emergency Department Course and Treatment: Patient treated with penicillin and [place]. Her last controlled substance was about a 1 year ago. She was given a short course of pain medicine as well as Pen-Vee K. Follow up with dental. Treatment Plan: As above Disposition: Discharge Impression: 1. Dental pain This note was generated with [employer] dictation software. It may contain incorrect words, spelling, and punctuation that were not noted in review of the chart prior to signing ED Disposition - Plan for ED Patient: Chief Complaint: Dental Referrals: [facility] Doctor,Out of [Primary Care Provider] -
--- NOTE | 2018-08-18 12:33 | DCINST.ED_ITS ---
ED Disposition - Plan for ED Patient: Chief Complaint: Dental Instructions: ED Tooth Pain Prescriptions: Hydrocodone Bitart/Apap 5-325 [[place] 5MG-325MG] 1 tab PO Q6H PRN PRN 3 Days #12 tab PRN Reason: Pain Penicillin V Potassium 500 mg PO 4X/DAY #40 tab
[2018-08-18] MEDS: Penicillin Vk 250 MG Tablet 500 MG PO (12:49)
--- OUTSIDE RECORDS SUMMARY | 2018-10-23 02:20 | XMS RPT_ITS ---
:1990 Author Organization OHIP Support Name Relationship Address Phone [email or web address] Unavailable [address] + [place] [address] [email or web address] Unavailable [address] + [place] [address] EMILY REINOSO Unavailable [address] + [place] [address] [id number] Unavailable [address] + [place] [address] EMILY REINOSO Unavailable [address] + [place] [address] [id number] Unavailable [address] + [place] [address] EMILY REINOSO Unavailable [address] + [place] [address] [id number] Unavailable [address] + [place] [address] EMILY REINOSO Unavailable [address] + [place] [address] [id number] Unavailable [address] + [place] [address] EMILY REINOSO Unavailable [address] + [place] [address] [id number] Unavailable [address] + [place] [address] EMILY REINOSO Unavailable [address] + [place] [address] [id number] Unavailable [address] + [place] [address] EMILY REINOSO Unavailable [address] + [place] [address] [id number] Unavailable [address] + [place] [address] EMILY REINOSO Unavailable [address] + [place] [address] [id number] Unavailable [address] + [place] [address] EMILY REINOSO Unavailable [address] + [place] [address] [id number] Unavailable [address] + [place] [address] EMILY REINOSO Unavailable [address] + [place] [address] [id number] Unavailable [address] + [place] [address] EMILY REINOSO Unavailable [address] + [place] [address] [id number] Unavailable [address] + [place] [address] EMILY REINOSO Unavailable [address] + [place] [address] [id number] Unavailable [address] + [place] [address] EMILY REINOSO Unavailable [address] + [place] [address] [id number] Unavailable [address] + [place] [address] EMILY REINOSO Unavailable [address] + [place] [address] [id number] Unavailable [address] + [place] [address] EMILY REINOSO Unavailable [address] + [place] [address] [id number] Unavailable [address] + [place] [address] EMILY REINOSO Unavailable [address] + [place] [address] [id number] Unavailable [address] + [place] [address] EMILY REINOSO Unavailable [address] + [place] [address] [id number] Unavailable [address] + [place] [address] EMILY REINOSO Unavailable [address] + [place] [address] [id number] Unavailable [address] + [place] [address] EMILY REINOSO Unavailable [address] + [place] [address] [id number] Unavailable [address] + [place] [address] EMILY REINOSO Unavailable [address] + [place] [address] [id number] Unavailable [address] + [place] [address] EMILY REINOSO Unavailable [address] + [place] [address] [id number] Unavailable [address] + [place] [address] EMILY REINOSO Unavailable [address] + [place] [address] [id number] Unavailable [address] + [place] [address] EMILY REINOSO Unavailable [address] + [place] [address] [id number] Unavailable [address] + [place] [address] EMILY REINOSO Unavailable [address] + [place] [address] [id number] Unavailable [address] + [place] [address] EMILY REINOSO Unavailable [address] + [place] [address] [id number] Unavailable [address] + [place] [address] EMILY REINOSO Unavailable [address] + [place] [address] [id number] Unavailable [address] + [place] [address] EMILY REINOSO Unavailable [address] + [place] [address] [id number] Unavailable [address] + [place] [address] EMILY REINOSO Unavailable [address] + [place] [address] [id number] Unavailable [address] + [place] [address] EMILY REINOSO Unavailable [address] + [place] [address] [id number] Unavailable [address] + [place] [address] EMILY REINOSO Unavailable [address] + [place] [address] [id number]available [address] + [place] [address] EMILY REINOSO Unavailable [address] + [place] [address] [id number] Unavailable [address] + [place] [address] EMILY REINOSO Unavailable [address] + [place] [address] [id number] Unavailable [address] + [place] [address] EMILY REINOSO Unavailable [address] + [place] [address] [id number] Unavailable [address] + [place] [address] EMILY REINOSO Unavailable [address] + [place] [id number] + [place] [address] EMILY REINOSO Unavailable [address] + [place] [id number] + [place] [address] HANSEL CRUZ Unavailable [address] + [place] [address] EMILY REINOSO Unavailable [address] + [place] [id number] + [place] [address] EMILY REINOSO Unavailable [address] + [place] [id number] + [place] [address] EMILY REINOSO Unavailable [address] + [place] [address] [id number] Unavailable [address] + [place] [address] EMILY REINOSO Unavailable [address] + [place] [address] BUE Unavailable [address] [place] [address] EMILY REINOSO Unavailable [address] + [place] [address] BUE Unavailable [address] [place] [address] EMILY REINOSO Unavailable . + [place] . BUE Unavailable [address] [place] [address] EMILY REINOSO Unavailable . + [place] Unavailable [address] [place] [address] EMILY REINOSO Unavailable . + [place] Unavailable [address] [place] [address] MALI ALBRIGHT Unavailable [address] + [place] [address] Care Team Providers Name Role Phone ADDIE PRADO Attending Unavailable MICHAELA COTA Referring Unavailable NO PRIMARY CARE, Primary Care Unavailable Nishi Sloan Attending Unavailable Primay Care Physicia, No Referring Unavailable Nishi Sloan Attending Unavailable Primay Care Physicia, No Primary Care Unavailable Akron, Nishi Referring Unavailable Alfredo Kasper Attending Unavailable Davis, Mayte Primary Care Unavailable Davis, Mayte Primary Care Unavailable UngurQiana Attending Unavailable Luther, Nishi Attending Unavailable Davis, Mayte Referring Unavailable Davis, Mayte Primary Care Unavailable Luther, Nishi Attending Unavailable Davis, Mayte Primary Care Unavailable Luther, Nishi Attending Unavailable Akron, Nishi Referring Unavailable Davis, Mayte Primary Care Unavailable Marcanthony, Michaela Attending Unavailable Davis, Mayte Referring Unavailable Davis, Mayte Primary Care Unavailable Marcanthony, Michaela Attending Unavailable Marcanthony, Michaela Referring Unavailable Davis, Mayte Primary Care Unavailable Marcanthony, Michaela Attending Unavailable Marcanthony, Michaela Referring Unavailable Primay Care Physicia, No Primary Care Unavailable Luther, Nishi Attending Unavailable Davis, Mayte Referring Unavailable Primay Care Physicia, No Primary Care Unavailable Addie Prado Attending Unavailable PradoAddie rosa Referring Unavailable Primay Care Physicia, No Primary Care Unavailable Luther, Nishi Attending Unavailable Primay Care Physicia, No Referring Unavailable Primay Care Physicia, No Primary Care Unavailable Marcanthony, Michaela Attending Unavailable Primay Care Physicia, No Primary Care Unavailable Marcanthony, Michaela Attending Unavailable Marcanthony, Michaela Referring Unavailable Primay Care Physicia, No Primary Care Unavailable Marcanthony, Michaela Attending Unavailable Primay Care Physicia, No Referring Unavailable Primay Care Physicia, No Primary Care Unavailable Akron, Nishi Attending Unavailable Primay Care Physicia, No Referring Unavailable Primay Care Physicia, No Primary Care Unavailable Luther, Nishi Attending Unavailable Primay Care Physicia, No Referring Unavailable Primay Care Physicia, No Primary Care Unavailable Luther, Nishi Attending Unavailable Primay Care Physicia, No Primary Care Unavailable Luther, Nishi Referring Unavailable Luther, Nishi Attending Unavailable Akron, Nishi Referring Unavailable Primay Care Physicia, No Primary Care Unavailable Marcanthony, Michaela Attending Unavailable Primay Care Physicia, No Referring Unavailable Primay Care Physicia, No Primary Care Unavailable Marcanthony, Michaela Attending Unavailable Marcanthony, Michaela Referring Unavailable Davis, Mayte Primary Care Unavailable Marcanthony, Michaela Attending Unavailable Primay Care Physicia, No Referring Unavailable Davis, Mayte Primary Care Unavailable Denise Eller Attending Unavailable Davis, Mayte Primary Care Unavailable Akron, Nishi Attending Unavailable Primay Care Physicia, No Referring Unavailable Davis, Mayte Primary Care Unavailable Marcanthony, Michaela Attending Unavailable Marcanthony, Michaela Referring Unavailable Davis, Mayte Primary Care Unavailable Marcanthony, Michaela Attending Unavailable Marcanthony, Michaela Referring Unavailable Davis, Mayte Primary Care Unavailable Marcanthony, Michaela Consulting Unavailable Marcanthony, Michaela Attending Unavailable Primay Care Physicia, No Referring Unavailable Davis, Mayte Primary Care Unavailable Marcanthony, Michaela Attending Unavailable Marcanthony, Michaela Referring Unavailable Davis, Mayte Primary Care Unavailable Marcanthony, Michaela Attending Unavailable Marcanthony, Michaela Referring Unavailable Davis, Mayte Primary Care Unavailable Marcanthony, Michaela Consulting Unavailable Akron, Nishi Attending Unavailable Primay Care Physicia, No Referring Unavailable Akron, Nishi Attending Unavailable Luther, Nishi Referring Unavailable Marcanthony, Michaela Attending Unavailable Primay Care Physicia, No Referring Unavailable Marcanthony, Michaela Attending Unavailable Marcanthony, Michaela Referring Unavailable Marcanthony, Michaela Attending Unavailable Marcanthony, Michaela Attending Unavailable Primay Care Physicia, No Referring Unavailable Marcanthony, Michaela Attending Unavailable Marcanthony, Michaela Referring Unavailable Marcanthony, Michaela Consulting Unavailable Marcanthony, Michaela Attending Unavailable Primay Care Physicia, No Primary Care Unavailable Marcanthony, Michaela Attending Unavailable Primay Care Physicia, No Referring Unavailable Marcanthony, Michaela Attending Unavailable Primay Care Physicia, No Primary Care Unavailable Marcanthony, Michaela Consulting Unavailable Marcanthony, Michaela Attending Unavailable Marcanthony, Michaela Referring Unavailable Primay Care Physicia, No Primary Care Unavailable Marcanthony, Michaela Admitting Unavailable Marcanthony, Michaela Admitting Unavailable Marcanthony, Michaela Attending Unavailable Marcanthony, Michaela Referring Unavailable Primay Care Physicia, No Primary Care Unavailable Marcanthony, Michaela Consulting Unavailable Marcanthony, Michaela Admitting Unavailable Luther, Nishi Attending Unavailable Marcanthony, Michaela Referring Unavailable Primay Care Physicia, No Primary Care Unavailable Marcanthony, Michaela Consulting Unavailable Marcanthony, Michaela Attending Unavailable Primay Care Physicia, No Referring Unavailable PROBLEMS PROBLEMS DATE TYPE CONDITION / CODE ATTENDING STATUS SOURCE 08/18/2018 Unknown K08.89 - Other Ranjith, Alfredo Active [place] specified disorders Community of teeth and Hospital supporting structures Repository / K08.89(ICD-10) 07/20/2018 Unknown Z12.4 - Encounter for AkronNishi jolley Active [place] screening for Community malignant neoplasm of Hospital cervix / Repository Z12.4(ICD-10) 07/20/2018 Unknown Z11.3 - Encounter for [place], Nishi Active [place] screening for Community infections with a Hospital predominantly sexual Repository mode of transmission / Z11.3(ICD-10) 07/19/2018 Unknown Z97.5 - Presence of [place], Nishi Active [place] (intrauterine) [facility] contraceptive device Hospital / Z97.5(ICD-10) Repository 07/19/2018 Unknown Z30.9 - Encounter for [place], Nishi Active [place] contraceptive Community management, Hospital unspecified / Repository Z30.9(ICD-10) 07/19/2018 Unknown Z30.430 - Encounter LutherNishi jolley Active [place] for insertion of [facility] intrauterine Hospital contraceptive device Repository / Z30.430(ICD-10) 07/07/2018 Unknown Z39.2 - Encounter for Gerardo, Active [place] routine [facility] follow-up / Hospital Z39.2(ICD-10) Repository 05/09/2018 Unknown Z68.42 - Body mass Marcjane, Active [place] index (BMI) [facility] 45.0-49.9, adult / Hospital Z68.42(ICD-10) Repository 05/09/2018 Unknown A59.9 - Marcjane, Active [place] Trichomoniasis, [facility] unspecified / Hospital A59.9(ICD-10) Repository 05/09/2018 Unknown O99.333 - Smoking Gerardo, Active [place] (tobacco) [facility] complicating Hospital , third Repository trimester / O99.333(ICD-10) 05/09/2018 Unknown O09.73 - Supervision Gerardo, Active [place] of high risk [facility] due to Hospital social problems, Repository third trimester / O09.73(ICD-10) 05/02/2018 Unknown Z36.9 - Encounter for Gerardo, Active [place] screening, [facility] unspecified / Hospital Z36.9(ICD-10) Repository 04/26/2018 Unknown O09.71 - Supervision LutherAnika jolleyy Active [place] of high risk Community due to Hospital social problems, Repository first trimester / O09.71(ICD-10) 04/26/2018 Unknown R80.9 - Proteinuria, Luther, Nishi Active [place] unspecified / Community R80.9(ICD-10) Hospital Repository 04/25/2018 Unknown O26.899 - Other Luther, Nishi Active [place] specified Community related conditions, Hospital unspecified trimester Repository / O26.899(ICD-10) 04/25/2018 Unknown N89.8 - Other Luther, Nishi Active [place] specified Community noninflammatory Hospital disorders of vagina / Repository N89.8(ICD-10) 03/01/2018 Unknown Z02.83 - Encounter Nishi Sloan Active [place] for blood-alcohol and Community blood-drug test / Hospital Z02.83(ICD-10) Repository 03/01/2018 Unknown O09.70 - Supervision LutherAnika jolleyy Active [place] of high risk Community due to Hospital social problems, Repository unspecified trimester / O09.70(ICD-10) 01/26/2018 Unknown 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 - Other Marcanthony, 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, in Hospital remission / Repository F19.11(ICD-10) 01/25/2018 Unknown Z36.89 - Encounter Marcneymarony, Active [place] for other specified [facility] screening / Hospital Z36.89(ICD-10) Repository 11/22/2017 Unknown Z36.82 - Encounter Prado, Active [place] for [facility] screening for nuchal Hospital translucency / Repository Z36.82(ICD-10) 09/08/2017 Unknown N92.6 - Irregular Luther, Nishi Active [place] menstruation, Community unspecified / Hospital N92.6(ICD-10) Repository PROCEDURES PROCEDURES No Procedure Records FoundRESULTS RESULTS EMERGENCY DEPARTMENT Observed: 08/18/2018 Status: F Source: [place] SUMMARY 3:45 PM [facility] REPOSITORY [facility] Medical Records Department [address] [place] [address] Emergency Department Summary 08/18/18 1230 MR#: [id number] Acct: [id number] Name: HANSEL CRUZ Rep #: [id number] : 1990 28 From: Alfredo Kasper MD PCP: Mayte Davis DO Status: DEP ER - ER Visit Summary Date of Service: 08/18/18 Chief Complaint: Dental pain History of Present Illness: The patient is a 28 F with bilateral molar dental pain. This has been an ongoing issue for this patient. She was referred to the emergency department because her pain was out of control. No tongue elevation or trouble with breathing or swallowing. Physical Examination: Patient has multiple mandibular dental fractures secondary to underlying decay. No abscess. Airway intact. Neck non-tender. Good range of motion. No lymphadenopathy or meningeal findings. Test Results: None indicated Emergency Department Course and Treatment: Patient treated with penicillin and [place]. Her last controlled substance was about a 1 year ago. She was given a short course of pain medicine as well as Pen-Vee K. Follow up with dental. Treatment Plan: As above Disposition: Discharge Impression: 1. Dental pain This note was generated with [employer] dictation software. It may contain incorrect words, spelling, and punctuation that were not noted in review of the chart prior to signing ED Disposition - Plan for ED Patient: Chief Complaint: Dental Referrals: [facility] Doctor,Out of [Primary Care Provider] - What to do if you have Problems For any increased pain, shortness of breath, bleeding, nausea or vomiting, chest pain, or any unexpected problems, contact your Primary Care Provider. Call [facility] ([phone]) or report to the closest Emergency Room. Call 911 if necessary. 08/18/18 1545 <Electronically signed by Alfredo Kasper MD> Date Alfredo Kasper MD Cosigner Signature (If Indicated): Date CC: Mayte Davis DO DISCHARGE INSTRUCTION Observed: 08/18/2018 Status: F Source: [place] 3:45 PM [facility] REPOSITORY [facility] Medical Records Department [address] [place] [address] Discharge Instruction 08/18/18 1232 MR#: [id number] Acct: [id number] Name: HANSEL CRUZ Rep #: [id number] : 1990 28 From: Alfredo Kasper MD PCP: Mayte Davis DO Status: DEP ER ED Disposition - Plan for ED Patient: Chief Complaint: Dental Instructions: ED Tooth Pain Prescriptions: Hydrocodone Bitart/Apap 5-325 [[place] 5MG-325MG] 1 tab PO Q6H PRN PRN 3 Days #12 tab PRN Reason: Pain Penicillin V Potassium 500 mg PO 4X/DAY #40 tab What to do if you have Problems For any increased pain, shortness of breath, bleeding, nausea or vomiting, chest pain, or any unexpected problems, contact your Primary Care Provider. Call [facility] ([phone]) or report to the closest Emergency Room. Call 911 if necessary. 08/18/18 1548 <Electronically signed by Alfredo Kasper MD> Date Alfredo Kasper MD Cosigner Signature (If Indicated): Date CC: Mayte Davis DO FOOD RUNNER OFFICE VISIT Observed: 07/19/2018 Status: F Source: [place] REPORT 2:07 PM [facility] REPOSITORY [facility] [address] [place] [address] OFFICE VISIT Date of Service: 07/19/18 MR#: [id number] Acct: [id number] Name: HANSEL CRUZ Rep #: [id number] : 1990 Provider: YOLY Sloan Age/Sex: 28/F Location[place] [facility] [place] Status: Signed with Addenda ADDENDUM by Yanni Linton on 07/19/18 at 1407 OFFICE PROCEDURES Office Procedure Documentation entered by Yanni Linton 07/19/18 14:07: Liletta IUD IUD GC/Chlamydia:: done Test: Yes Negative Consent Signed: Yes Time out checklist: patient, procedure, site marked/identified, positioning of patient, supplies available, allergies confirmed, team agrees on procedure IUD: Yes Shaneka Time out time: 13:42 Details: Sign in Communication: Completed Sign out documentation: Completed The uterus sounded to 8 cm. After prepping the cervix with betadine and using sterile technique, the cervix was grasped with a single tooth tenaculum and the IUD was inserted without difficulty and the string was cut to 3cm from the external os of the cervix. All instruments were removed from the vagina and excellent hemostasis was noted. Procedure Summary: patient tolerated the procedure well without complication. Thin prep pap and GCC collected levonorgestrel 20 mcg/24 hr (5 years) intrauterine device 1 insert Intrauterine ONCE IUD Details: Sign in Communication: Completed Sign out documentation: Completed The uterus sounded to [] cm. After prepping the cervix with betadine and using sterile technique, the cervix was grasped with a single tooth tenaculum and the IUD was inserted without difficulty and the string was cut to 3cm from the external os of the cervix. All instruments were removed from the vagina and excellent hemostasis was noted. Procedure Summary: patient tolerated the procedure well without complication. Office Meds levonorgestrel Performing Provider: SHAHZAD Aquino Administered by: SHAHZAD Aquino on 07/19/18 13:41 Dose Route Admin Location Lot Number Expiration DateNDC Copra Sampler 1 insert Intrauterine uterus [id number] 03/30/22 3338-2696-50 [employer] 07/19/18 1407 <Electronically signed by Yanni Linton > Date Yanni Linton cc: * Signed Intake Vital Signs07/19/18 Height 5 ft 6 in 07/19/18 Weight: 297 lb 8 oz 07/19/18 Body Mass Index (BMI) 47.9 07/19/18 Blood Pressure 120/76 Intake Visit Reasons: IUD insert Is patient in pain?: No Allergies No Known Allergies Allergy (Verified 07/07/18 14:59) levonorgestrel 1 insert Intrauterine ONCE Is last menstrual period known: Yes Last Menstral Period: 07/17/18 Post menopausal: No Patient : No : No PFSH PFSH Medical History Preeclampsia (Acute) Social History Smoking Status: Heavy Smoker (>10/day) alcohol intake: never substance use type: does not use caffeine: Yes frequency: 1-2 times per week seatbelt use: always do you feel safe at home: Yes additional social history: Emily- unemployed Single- [employer] in old 29 Pregancy History 6 Elective abortions Hx Para 6 Spontaneous abortions Past Pregnancies Del. DateName GA/Weeks Outcome Route Bth WeighInfant GeLabor LgtAnesthesiDel LocatProvider FOB t n h a n Delivery Date: 05/17/18 No notes to display Delivery Date: On 10/13/17 @ 14:25 Michaela Cota has custody Delivery Date: On 10/13/17 @ 14:25 Michaela Cota adopted out Delivery Date: On 10/13/17 @ 14:24 Michaela Cota adopted out Delivery Date: On 10/13/17 @ 14:24 Michaela Cota grandma has custody Delivery Date: On 10/13/17 @ 14:26 Michaela Cota preeclampsia, grandmother has custody HPI IUD insert: Details: HANSEL CRUZ is a 28 year old who presents for insertion Liletta IUD Female Reproductive History Last Menstral Period: 07/17/18 Office Procedures Liletta IUD IUD GC/Chlamydia:: done Test: Yes Negative Consent Signed: Yes Time out checklist: patient, procedure, site marked/identified, positioning of patient, supplies available, allergies confirmed, team agrees on procedure IUD: Yes Liletta Time out time: 13:42 Details: Sign in Communication: Completed Sign out documentation: Completed The uterus sounded to 8 cm. After prepping the cervix with betadine and using sterile technique, the cervix was grasped with a single tooth tenaculum and the IUD was inserted without difficulty and the string was cut to 3cm from the external os of the cervix. All instruments were removed from the vagina and excellent hemostasis was noted. Procedure Summary: patient tolerated the procedure well without complication. Thin prep pap and GCC collected levonorgestrel 20 mcg/24 hr (5 years) intrauterine device 1 insert Intrauterine ONCE IUD Details: Sign in Communication: Completed Sign out documentation: Completed The uterus sounded to [] cm. After prepping the cervix with betadine and using sterile technique, the cervix was grasped with a single tooth tenaculum and the IUD was inserted without difficulty and the string was cut to 3cm from the external os of the cervix. All instruments were removed from the vagina and excellent hemostasis was noted. Procedure Summary: patient tolerated the procedure well without complication. Office Meds levonorgestrel Performing Provider: SHAHZAD Aquino Documented (not given) by: SHAHZAD Aquino on 07/19/18 13:41 Dose Route Admin Location Lot Number Expiration Date NDC Copra Sampler 1 insert Intrauterine Assessment AND Plan Problems 1. Encounter for insertion of intrauterine contraceptive device (IUD) Z30.430 2. Pap smear for cervical cancer screening Z12.4 3. Screen for STD (sexually transmitted disease) Z11.3 Plan Reviewed S AND S infection and condom use. Written information given Pap and GCC collected RTO 6 weeks Orders Orders: Medications New: Coding Level of Care Code No Charge Diagnoses Encounter for insertion of intrauterine contraceptive device (IUD) Z30.430 Pap smear for cervical cancer screening Z12.4 Screen for STD (sexually transmitted disease) Z11.3 Additional Codes IUD (20792) 07/19/18 1344 <Electronically signed by Nishi PIKE> Date Nishi PIKE Cosigner Signature: Date (if applicable) CC: CT/NG [facility] BY PCR Collected: 07/19/2018 Status: F Source: [place] 2:00 PM [facility] REPOSITORY TYPE CODE TESTS RESULT OUT OF RANGE REFERENCE UNITS LAB L8200.2100 Negative Normal Chlam Negative Trac PCR LAB L8200.2200 Negative Normal NG by Negative PCR Performed By: #### L8200.2000 #### [facility] [address] [place], [address] PAP I-G W/RFX Collected: 07/19/2018 Status: F Source: VIJAYA HRHPV-APTIMA 2:00 PM [facility] REPOSITORY Order Comment: CYTOLOGY INFORMATION: - CLINICAL INFORMATION: - DATE LMP/MENOPAUSE: N/A LMP - COLLECTION VIAL: Thin Prep Vial - GROUP TEACHER SOURCE: CERVICAL - COLLECTION TECHNIQUE: CX BROOM ONLY Specimen Comment: [id number] Specimen Comment: Source.............Cervix Specimen Comment: No. of containers..01 ThinPrep Vial TYPE CODE TESTS RESULT OUT OF RANGE REFERENCE UNITS LAB L7400.0800 . Normal DIAGN Comment Result Comment: NEGATIVE FOR INTRAEPITHELIAL LESION AND MALIGNANCY. TRICHOMONAS VAGINALIS IS PRESENT. THIS SPECIMEN WAS RESCREENED PART OF OUR HARVESTER OPERATOR PROGRAM. LAB L7400.0900 . Normal ADEQ Comment Result Comment: Satisfactory for evaluation. Endocervical and/or squamous metaplastic cells (endocervical component) are present. LAB L7400.1400 . Normal PERFORM Comment Result Comment: Cheyenne Albert, Commissary Assistant (ASCP) LAB L7400.1500 . Normal QC Comment REV Result Comment: Ml Pineda, Supervisory Commissary Assistant (ASCP) LAB L7400.2575 . Normal TEST METHOD Comment Result Comment: This liquid based ThinPrep(R) pap test was screened with the use of an image guided system. LAB L7400.2600 . Normal . COMM LAB L7400.2700 . Normal PAPSMR Comment Result Comment: The Pap smear is a screening test designed to aid in the detection of premalignant and malignant conditions of the uterine cervix. It is not a diagnostic procedure and should not be used as the sole means of detecting cervical cancer. Both false-positive and false-negative reports do occur. LAB L7400.2800 . Normal HPV RFLX Comment Result Comment: The HPV DNA reflex criteria were not met with this specimen result therefore, no HPV testing was performed. Performed at: - [facility] [place] [id number] Control Systems Technician: Ruth Ann Calderon MD, Phone: [phone] Performed By: #### L7400.0353 #### [facility] (refer to report for specific site) refer to report for address and phone number FOOD RUNNER OFFICE VISIT Observed: 07/07/2018 Status: F Source: RAYMOND REPORT 3:41 PM [facility] REPOSITORY [facility] [address] [place] [address]. [address] [place] [address] OFFICE VISIT Date of Service: 07/07/18 MR#: [id number] Acct: [id number] Name: HANSEL CRUZ Rep #: [id number] : 1990 Provider: Michaela Cota MD Age/Sex: 28/F Location[place] [facility] [place] Status: Signed Intake Vital Signs07/07/18 Height 5 ft 6 in 07/07/18 Weight: 296 lb 07/07/18 Body Mass Index (BMI) 47.7 07/07/18 Blood Pressure 120/70 Intake Visit Reasons: 6w post delivered 05/17/2018 Chief Complaint: 6w post Professional Development Director Required: No Is patient in pain?: No Allergies No Known Allergies Allergy (Verified 07/07/18 14:59) Medications vitamin,calcium,annjmpmm-slbi-gfkaw acid tablet 1 tab PO QDAY 11/10/17 [History Confirmed 07/07/18] Last Menstral Period: 07/03/18 : Yes PFSH Medical History Preeclampsia (Acute) Social History Smoking Status: Heavy Smoker (>10/day) alcohol intake: never substance use type: does not use caffeine: Yes frequency: 1-2 times per week seatbelt use: always do you feel safe at home: Yes additional social history: Emily- unemployed Single- [employer] in old 29 Pregancy History 6 Elective abortions Hx Para 6 Spontaneous abortions Past Pregnancies Del. DateName GA/Weeks Outcome Route Bth WeighInfant GeLabor LgtAnesthesiDel LocatProvider FOB t n h a n Delivery Date: 05/17/18 No notes to display Delivery Date: On 10/13/17 @ 14:25 Michaela Cota has custody Delivery Date: On 10/13/17 @ 14:25 Michaela Cota adopted out Delivery Date: On 10/13/17 @ 14:24 Michaela Cota adopted out Delivery Date: On 10/13/17 @ 14:24 Michaela Cota grandma has custody Delivery Date: On 10/13/17 @ 14:26 Michaela Cota preeclampsia, grandmother has custody Depression Screen PHQ-2/9 PHQ-2 Over the last 2 weeks, how often have you been bothered by any of the following problems? 1. Little interest or pleasure in doing things: not at all 2. Feeling down, depressed, or hopeless: not at all Total score: 0 If score is 2 or greater, continue Source: Developed by Drs. Roel Pineda, Kristen Garrett, Teodoro Byrne and colleagues, with an educational lily from [employer]. Scoring: Total Score Depression Severity Action 1-4 Minimal depression No action needed 5-9 Mild depression Repeat PHQ-9 at follow up 10-14 Moderate depression Make tx plan,consider counseling, fup, prescription Post HPI 6w post delivered 05/17/2018: Details: HANSEL CRUZ is a 28 year old who presents for her post visit. Feeding: Breast Menses resumed: No Pierre Part since delivery: No Emotional Support: Yes Last Pap:: 10/16 nl ROS Const Reports system reviewed and no additional complaints, except as docu GI Reports system reviewed and no additional complaints, except as docu, Denies bloating, Denies nausea, Denies vomiting, Denies constipation Reports system reviewed and no additional complaints, except as docu, Denies abnormal vaginal bleeding, Denies pelvic pain, Denies sexual problems, Denies urinary urgency, Denies vaginal discharge, Denies urinary hesitancy, Denies urinary incontinence Skin/Breast Reports system reviewed and no additional complaints, except as docu, Reports as per HPI Psych Reports as per HPI Exam Const General: cooperative, healthy appearing, comfortable, no acute distress HENMT Head: normal to inspection Neck Neck: normal visual inspection, no lymphadenopathy Thyroid: thyroid normal Resp Effort AND Inspection: normal respiratory effort Assessment AND Plan Problems 1. care and examination Z39.2 Plan fu for exam and iud inertion next week when iuds are in Coding Level of Care Code Off vis,est,level 3 Diagnoses care and examination Z39.2 07/07/18 1541 <Electronically signed by Michaela Cota MD> Date Michaela Cota MD Cosigner Signature: Date (if applicable) CC: DISCHARGE INSTRUCTION Observed: 05/19/2018 Status: F Source: RAYMOND 5:27 AM [facility] REPOSITORY [facility] Medical Records Department [address] [place] [address] Instructions for Home/Discharge Instructions 05/19/18 0527 MR#: [id number] Acct: [id number] Name: HANSEL CRUZ Rep #: [id number] : 1990 27 From: Michaela Cota MD PCP: Care Physician, No Primary Status: ADM IN Discharge Diet: No Restrictions Discharge Activity: Return to Normal Activity, May not drive while taking narcotic pain medications., May Shower May resume sexual activity in: 4-6 weeks Call your doctor if your incision/area has: Continuous Slow Oozing, Sudden Increased Bleeding, Increased Pain/ Swelling, Increased Redness, Foul Smelling Discharge Additional Instructions: If you experience any of the following, contact your healthcare provider. * Bleeding that soaks a pad every hour for 2 hours * Fever 100.4 or higher * Unrelieved incision or abdominal pain * Swelling, redness, discharge or bleeding from your incision or episiotomy site * Your incision begins to separate * Problems urinating (including inability to urinate or burning while urinating). * Visual changes * Severe headache * Flu-like symptoms * Pain or redness in one of both of your breasts * Pain, warmth, tenderness or swelling in your legs, especially the calf area * Frequent nausea and vomiting * Symptoms of depression or anxiety If you experience any of the following, call 911 or go to the nearest Emergency Room. * Chest pain * Problems breathing * Seizure activity * Partial or complete paralysis of a body part, slurred speech, weakness or drooping of the face, or a sudden inability to walk or hold your balance Allergies/Adverse Reactions: Allergies No Known Allergies Allergy (Verified 05/17/18 19:39) Medications to take at Discharge vitamin,calcium,wolfaycu-mkya-qpmgh acid tablet 1 tab PO QDAY 11/10/17 Naproxen [Naprosyn] 250 - 500 mg PO Q8H PRN PRN #30 tablet 05/19/18 The following prescriptions were given: Naproxen [Naprosyn] 250 - 500 mg PO Q8H PRN PRN #30 tablet PRN Reason: MILD PAIN Please Follow Up With: Michaela Cota MD - [phone] When: Call to make an appointment with your doctor in 6 weeks. If you had elevated Blood pressure or 4th degree laceration you will need to be seen in 2 weeks. Primary Care Physician: Care Physician,No Primary [Primary Care Provider] - Test Results: Test results from this visit will be discussed in further detail at your follow-up appointment, if applicable. 05/19/18 0527 <Electronically signed by Michaela Cota MD> Date Michaela Cota MD CC: No Primary Care Physician OPERATIVE REPORT Observed: 05/17/2018 Status: F Source: VIJAYA 11:32 PM [facility] REPOSITORY [facility] Medical Records Department [address] [place] [address] Operative Report 05/17/18 2330 MR#: [id number] Acct: [id number] Name: HANSEL CRUZ Rep #: [id number] : 1990 27 From: Michaela Cota MD PCP: Care Physician, No Primary Status: ADM IN Y Location: [facility]-1 - Problem List (1) Active labor at term Status: Acute (2) Trichimoniasis Status: Acute Comment: Treated flagyl X 3 times. Persistent positive and refuses further treatment. Not sexually active since 16 wk (3) BMI 45.0-49.9, adult Status: Acute Comment: 1st tm heidiola discussed healthy weight gain in (4) Supervision of high risk due to social problems Status: Acute Qualifiers: Comment: PRR ALY 05/19/18 PC Renato (doesn't have custody of others) boyfriend- Emily (5) Tobacco use complicating Status: Acute Qualifiers: Comment: encouraged cessation. 11/10 down to 3-4 cig/day 02/28 using patches. 1 cig per day or less Vaginal Delivery Maternal Presentation: Active Labor 27-year-old at 39 weeks 5 days presents in active labor Amniotic Membrane Rupture Type: Spontaneous Amniotic Fluid Description: Clear Final ALY: 05/19/18 Gestational age: 39 Weeks and 5 Days Date of Procedure: 05/17/18 Pre-Operative Diagnosis: In active labor Post-Operative Diagnosis: Same Surgery/ Procedure Performed: Spontaneous Vaginal Delivery Type of Anesthesia: None Description of Procedure: Patient began pushing and delivered the head in the ZAIN presentation. The head was delivered atraumatically. The anterior and posterior shoulders delivered without complication followed by the rest of the infant and the infant was placed on the maternal abdomen. Delayed cord clamping was employed for approximately 60 seconds. Cord was clamped and cut and gentle traction was applied to the cord and the placenta delivered spontaneously immediately following it was noted to be intact with three-vessel cord. The perineum and vagina were inspected and noted to have no laceration. EBL was 100 cc. Patient and tolerated delivery well. Presentation: ZAIN Placental Delivery Description: Spontaneous Placenta Disposition: [facility] Cord Vessel Description: 3 Vessels Cord Entanglement: None Estimated Blood Loss: 100 Infant A gender: Female Episiotomy Description: None Laceration: None Medications given after delivery: IV Pitocin Complications: None 05/17/18 2689 <Electronically signed by Michaela Cota MD> Date Michaela Cota MD CC: No Primary Care Physician; Michaela Cota MD Signed HISTORY AND PHYSICAL Observed: 05/17/2018 Status: F Source: RAYMOND EXAM 10:05 PM [facility] REPOSITORY [facility] Medical Records Department [address] [place] [address] History and Physical 05/17/182155 MR#: [id number] Acct: [id number] Name: HANSEL CRUZ Rep #: [id number] : 1990 27 From: Michaela Cota MD PCP: Care Physician, No Primary Status: ADM IN Y Location: [place] [address]-1 - Problem List (1) Active labor at term Status: Acute (2) Trichimoniasis Status: Acute Comment: Treated flagyl X 3 times. Persistent positive and refuses further treatment. Not sexually active since 16 wk (3) BMI 45.0-49.9, adult Status: Acute Comment: 1st tm glucola discussed healthy weight gain in (4) Supervision of high risk due to social problems Status: Acute Qualifiers: Comment: PRR ALY 05/19/18 PC Renato (doesn't have custody of others) boyfriend- Emily (5) Tobacco use complicating Status: Acute Qualifiers: Comment: encouraged cessation. 11/10 down to 3-4 cig/day 02/28 using patches. 1 cig per day or less History Date of Admission: 10/10/13 Final ALY: 05/19/18 Gestational age: 39 Weeks and 5 Days History of this : This is a 27 year-old, at 39 weeks presents IAL 4 cm with SROM clear fluid. she denies any vb lof good fm co regular ctx Medical History: Medical History (Last Reviewed 05/15/18 @ 13:27 by Zoraida Browne) Preeclampsia O14.90 Allergies No Known Allergies Allergy (Verified 05/17/18 19:39) Home Medications: Home Medications vitamin,calcium,xkhnlowi-ztrj-klviu acid tablet 1 tab PO QDAY 11/10/17 Smoking Status: Heavy Smoker (>10/day) Alcohol: None Number of Fetus(es): 1 Heart Tracins moderate variability reactive no decels. cat I tracing TOCO Analysis: q 2-4 History Past Pregnancies: Past PregnanciesPregancy History 6 Elective abortions Hx Para 5 Spontaneous abortions Hx # Term Pregnancies Ectopic pregnancies Hx # Pregnancies Multiple births # of living children Past Pregnancies Del. Date Name GA/Weeks Outcome Route Bth Weight Infant Gen Labor Lgth Anesthesia Del Locatn Provider FOB Unknown 2004 Cruz live - full term 8 lbs 8 Unknown 2008 Tiffanie live - full term 7 lbs 3 ounces Unknown 2009 Jose Berg 39 live - full term 7lbs 4 ounces Unknown 2011 Laz live - full term 8 lbs 9 ounces Unknown 2013 Renato live - full term 5lbs 6 ounces Delivery Date: On 10/13/17 @ 14:25 Michaela Cota has custody Delivery Date: On 10/13/17 @ 14:25 Michaela Cota adopted out Delivery Date: On 10/13/17 @ 14:24 Michaela Cota adopted out Delivery Date: On 10/13/17 @ 14:24 Michaela Cota grandma has custody Delivery Date: On 10/13/17 @ 14:26 Michaela Cota preeclampsia, grandmother has custody Labs: Mom's Problem List Problem Status Onset Code Active labor at term Acute Mom's Labs AND Results WBC 11.9 H RBC 4.00 L Course Did the patient receive Yes care? Labs Blood Type: O Current Obstetrical History Gestational Diabetes No Incompetent Cervix No Infertility No IUGR No Macrosomia No Hypertension/Pre-eclampsia No Placenta Previa/Abruption No PTL/PROM No Uterine anomaly No Oligohydramnios No Polyhydramnios No Multiple gestation No Past Medical History Asthma Yes: exercise-induced Diabetes No Hypertension No Heart disease No Mitral valve prolapse Yes Neurologic/Seizure disorder/ No Migraines Kidney disease No Liver disease No Varicosities No Clotting disorders/Hx of DVT No Thyroid Dysfunction No Other medical diseases No Psychiatric disorders No Major trauma No Abnormal PAP smear Yes: 14 y ago Sleep apnea No Mammogram in the last 2 years No Medications Taken During Dose/Freq.: [Flagyl] x3 Last Date/Time of Medication 05/18 Social History Marital Status: SINGLE Alleged father Emily Reinoso Hx Smoking Yes Smoking Status Heavy Smoker (>10/day) Expected Infant Delivery Method: Spontaneous Vaginal Describe any other labor AND delivery plans:: OB Visit. ALY Calculator. Estimated Delivery Date 05/19/18. Based on LMP (certain) 08/12/17. Current WG 39w 3d. Number 1. Expected Delivery Route/Plan. . Specific Issue/Plans. flu vaccine declined. minichart given: yes. tdap vaccine: []. rhogam: NA. LARC form signed: []. labor support person:Emily. pain management: natural. cut cord/dad catch: []. : yes. PP control planned: []. special requests: [] Review of Systems Constitutional: Denies: Fever, Malaise Eyes: Denies: Blurred vision, Vision Change HEENT: Denies: Head Aches, Visual Changes Cardiovascular: Denies: Chest Pain, Palpitations Respiratory: Denies: Cough, Shortness of Breath, Wheezing Gastrointestinal: Denies: Abdominal Pain, Diarrhea, Nausea, Vomiting Genitourinary: Denies: Dysuria, Hematuria Musculoskeletal: Denies: Joint Pain, Muscle pain Skin: Denies: Lesions, Rash Neurological: Denies: Blurred vision, Focal weakness, Headaches Psychiatric: Denies: Anxiety, Depression Endocrine: Denies: Heat/ Cold Intolerance Hematologic/ Lymphatic: Denies: Easy Bruising, Easy Bleeding Physical Exam General: Alert, Cooperative, No apparent distress HEENT: Atraumatic, Normocephalic. Negative for: Thyromegaly, Lymphadenopathy Cardiovascular: Regular rate Lungs: Normal air movement Abdomen: Soft, Non Tender, Gravid Neurological: Deep Tendon Reflexes 2+/4 and Symmetrical, Neuro grossly intact. Negative for: Clonus GROUP TEACHER: Normal external genitalia. Negative for: Vulvar lesions Estimated gestational size: Appropriate for gestational size Presentation: Cephalic Assessment/Plan All Active Problems (Last Reviewed 05/15/18 @ 13:27 by Zoraida Browne) False labor (Acute) Active labor at term (Acute) Threatened labor (Acute) 33 weeks gestation of (Acute) Trichimoniasis (Acute) BMI 45.0-49.9, adult (Acute) Supervision of high risk due to social problems (Acute) Tobacco use complicating (Acute) screening encounter (Resolved) This is a 27 year-old, at 39 weeks gestational age presents IAL admit IAL epi if desired, pit PRN. srom clear fluid, exp managment. director of social media marketing consult. 05/17/18 2986 <Electronically signed by Michaela Cota MD> Date Michaela Cota MD Cosigner Signature: Date (if applicable) CC: No Primary Care Physician; Michaela Cota MD Signed CBC-COMPLETE BLOOD CNT Collected: 05/17/2018 Status: F Source: RAYMOND NO DIFF 7:50 PM [facility] REPOSITORY TYPE CODE TESTS RESULT OUT OF RANGE REFERENCE UNITS LAB L100.1000 4.4-11.0 K/mm3 High WBC 11.9 LAB L100.1200 4.2-5.4 M/mm3 Low RBC 4.00 LAB L100.1300 12.0-15.0 g/dl Normal HGB 12.2 LAB L100.1400 37-47 % Low HCT 36.5 LAB L100.1500 81-99 fL Normal MCV 91.3 LAB L100.1600 27.0-32.0 pg Normal MCH 30.5 LAB L100.1700 32-36 g/gl Normal MCHC 33.4 LAB L100.1810 11.6-14.6 % Normal RDW CV 14.2 LAB L100.1820 35.1-43.9 fl High RDW SD 47.0 LAB L100.1900 150-450 K/mm3 Normal PLT 252 LAB L100.2000 6.2-12.0 fl Normal MPV 8.7 Performed By: #### L100.0500 #### [facility] [address] [place], [address] TYPE AND SCREEN Collected: 05/17/2018 Status: F Source: VIJAYA 7:50 PM [facility] REPOSITORY Order Comment: Reason for Type AND Screen/Red Cells: ROUTINE TYPE CODE TESTS RESULT OUT OF RANGE REFERENCE UNITS LAB B10.0800 O Normal BLOOD TYPE GEL POSITIVE LAB B100.4000 Normal Antibody NEGATIVE Screen Performed By: #### B101.7450 #### [facility] [address] [place], [address] FOOD RUNNER OFFICE VISIT Observed: 05/15/2018 Status: F Source: VIJAYA REPORT 2:44 PM [facility] REPOSITORY [facility] [address] [place] [address] OFFICE VISIT Date of Service: 05/15/18 MR#: [id number] Acct: [id number] Name: HANSEL CRUZ Rep #: [id number] : 1990 Provider: Michaela Cota MD Age/Sex: 27/F [place] [facility] [place]: Signed Intake Vital Signs05/15/18 Height 5 ft 6 in 05/15/18 Weight: 314 lb 05/15/18 Body Mass Index (BMI) 50.6 05/15/18 Blood Pressure 132/72 H Intake Visit Reasons: est ob 39 weeks NST Professional Development Director Required: No Is patient in pain?: No Allergies No Known Allergies Allergy (Verified 05/15/18 13:27) Medications vitamin,calcium,lbjeqhio-tpcd-dxgrz acid tablet 1 tab PO QDAY 11/10/17 [History Confirmed 05/15/18] ondansetron HCl 4 mg tablet 4 mg PO .COMPLEX PRN #2 tab 02/08/18 [Rx Confirmed 05/15/18] Last Menstral Period: 08/10/17 Zika: Zika virus screening: Negative : No PFSH PFSH Medical History Preeclampsia (Acute) Social History Smoking Status: Current every day smoker alcohol intake: never substance use type: does not use caffeine: Yes frequency: 1-2 times per week seatbelt use: always do you feel safe at home: Yes additional social history: Emily- unemployed Single- [employer] in old 29 Pregancy History 6 Elective abortions Hx Para 5 Spontaneous abortions Past Pregnancies Del. DateName GA/Weeks Outcome Route Bth WeighInfant GeLabor LgtAnesthesiDel LocatProvider FOB t n h a n Delivery Date: On 10/13/17 @ 14:25 Michaela Cota has custody Delivery Date: On 10/13/17 @ 14:25 Michaela Cota adopted out Delivery Date: On 10/13/17 @ 14:24 Michaela Cota adopted out Delivery Date: On 10/13/17 @ 14:24 Michaela Cota grandma has custody Delivery Date: On 10/13/17 @ 14:26 Michaela Cota preeclampsia, grandmother has custody HPI est ob 39 weeks NST: Details: HANSEL CRUZ is a 27 year old who presents for routine OB visit. OB Visit ALY Calculator Estimated Delivery Date 05/19/18 Based on LMP (certain) 08/12/17 Current WG 39w 3d Number 1 Expected Delivery Route/Plan Specific Issue/Plans flu vaccine declined minichart given: yes tdap vaccine: [] rhogam: NA LARC form signed: [] labor support person:Emily pain management: natural cut cord/dad catch: [] : yes PP control planned: [] special requests: [] Initial Weight: 310 lb Date Weight BP Urine PrFHR FuHt Pres MoCTX DilationFetal StVisit NoProviderComments E ot v te GA G Effac lucose ed Visit Notes Visit Date: 05/15/18 irregular ctx, patient uncomfortable, requesting IOL. plan IOL pitocin at 40 weeks. Michaela Cota MD on 05/15/18 Visit Date: 05/09/18 no vb lof good fm irregular ctx Michaela Cota MD on 05/09/18 Visit Date: 05/02/18 no vb lof good fm no regular ctx. having some nausea Michaela Cota MD on 05/02/18 Visit Date: 04/25/18 No VB, LOF. lots of pressure. Many social issues,stress. Concerned with sometimes sees spots and ankles swelling. SHAHZAD Aquino on 04/25/18 Visit Date: 04/11/18 nst reactive no vb lof good fm no regular ctx Michaela Cota MD on 04/11/18 Visit Date: 04/05/18 No visit notes to display Visit Date: 03/28/18 no vb lof good fm no egular ctx Michaela Cota MD on 03/28/18 Visit Date: 03/14/18 ordered vaginal treatment for trich Michaela Cota MD on 03/14/18 Visit Date: 02/28/18 Doing well. No VB, LOF. No longer with FOB. Unsure how much he will be involved SHAHZAD Aquino on 02/28/18 Visit Date: 02/08/18 No LOF, VB, CTX. Good Fm SHAHZAD Aquino on 02/08/18 Visit Date: 12/07/17 Doing well. Denies VB, LOF SHAHZAD Aquino on 12/07/17 Visit Date: 11/10/17 Nausea improved. Denies VB, LOF. SHAHZAD Aquino on 11/10/17 ACOG First Trimester First Trimester: Desire for , Alcohol, Tobacco Cessation, Illicit/Recreational Drug/Substance Use, Intimate Partner Violence, Barriers to care, Unstable Housing, Communication Barriers, Environmental/Work Hazards, Anticipated Course of Care, Toxoplasmosis Precations, Use of Any medications, Sexual activity, Exercise, Dental Care, Sauna/Hot tub use, Seat Belt use, Childbirth classes/Hospital facilities, , Travel, Indications for US and Screening for Aneuploidy Diagnostics Diagnostics Labs Obstetrics Ultrasound 05/09/18 Chlam trachomat DNA PCR Negative (Negative) 04/25/18 N.gonorrhoeae DNA (PCR) Negative (Negative) 04/25/18 Group B Strep DNA Negative (Negative) 04/25/18 Details: HIV: Urine Culture: Sequential Screen: NIPT Screen: Results [id number] Office Urine Glucose Negative Last Edit by Zoraida Browne on 05/15/18 13:28 Office Urine Protein Negative Last Edit by Zoraida Browne on 05/15/18 13:28 Assessment AND Plan Problems 1. BMI 45.0-49.9, adult Z68.42 1st tm glucola discussed healthy weight gain in 2. complicated by tobacco use in third trimester O99.333 encouraged cessation. 11/10 down to 3-4 cig/day 02/28 using patches. 1 cig per day or less 3. 33 weeks gestation of Z3A.33 sequential screen negative. normal anatomy scan at [facility]. 4. Trichimoniasis A59.9 Treated flagyl X 3 times. Persistent positive and refuses further treatment. Not sexually active since 16 wk 5. Supervision of high risk due to social problems in third trimester O09.73 PRR ALY 05/19/18 PC Rentao (doesn't have custody of others) boyfriend- Emily 6. Threatened premature labor in third trimester O47.03 Plan movement and labor precautions reviewed. ACOG trimester education reviewed and updated. see problem list details for updated plan management information and see below for orders placed at this visit. GA appropriate handout given. Orders Orders: Coding Level of Care Code Off vis,est,level 3 Diagnoses BMI 45.0-49.9, adult Z68.42 complicated by tobacco use in third trimester O99.333 Trimester: third trimester 33 weeks gestation of Z3A.33 Trichimoniasis A59.9 Supervision of high risk due to social problems in third trimester O09.73 Trimester: third trimester Threatened premature labor in third trimester O47.03 Trimester: third trimester 05/15/18 1444 <Electronically signed by Michaela Cota MD> Date Michaela Cota MD Cosigner Signature: Date (if applicable) CC: FOOD RUNNER OFFICE VISIT Observed: 05/09/2018 Status: F Source: VIJAYA REPORT 1:51 PM [facility] [address] [place] [place] [address] OFFICE VISIT Date of Service: 05/09/18 MR#: [id number] Acct: [id number] Name: HANSEL CRUZ Rep #: [id number] : 1990 Provider: Michaela Cota MD Age/Sex: 27/F [place] [facility] [place]: Signed Intake Vital Signs05/09/18 Height 5 ft 6 in 05/09/18 Weight: 311 lb 2 oz 05/09/18 Body Mass Index (BMI) 50.2 05/09/18 Blood Pressure 110/64 Intake Visit Reasons: est ob 38 weeks NST Chief Complaint: est ob, NO NST Professional Development Director Required: No Is patient in pain?: Yes Allergies No Known Allergies Allergy (Verified 05/09/18 12:55) Medications vitamin,calcium,cgtiphgo-yrer-vdvgd acid tablet 1 tab PO QDAY 11/10/17 [History Confirmed 05/02/18] ondansetron HCl 4 mg tablet 4 mg PO .COMPLEX PRN #2 tab 02/08/18 [Rx Confirmed 05/09/18] miconazole nitrate 2 % vaginal cream 1 appful VAGINAL QHS 7 Days #45 g 05/08/18 [Rx Confirmed 05/09/18] Last Menstral Period: 08/10/17 Zika: Zika virus screening: Negative : No PFSH PFSH Medical History Preeclampsia (Acute) Social History Smoking Status: Current every day smoker alcohol intake: never substance use type: does not use caffeine: Yes frequency: 1-2 times per week seatbelt use: always do you feel safe at home: Yes additional social history: Emily- unemployed Single- [employer] in old 29 Pregancy History 6 Elective abortions Hx Para 5 Spontaneous abortions Past Pregnancies Del. DateName GA/Weeks Outcome Route Bth WeighInfant GeLabor LgtAnesthesiDel LocatProvider FOB t n h a n Delivery Date: On 10/13/17 @ 14:25 Michaela Cota has custody Delivery Date: On 10/13/17 @ 14:25 Michaela Cota adopted out Delivery Date: On 10/13/17 @ 14:24 Michaela Cota adopted out Delivery Date: On 10/13/17 @ 14:24 Michaela Cota grandma has custody Delivery Date: On 10/13/17 @ 14:26 Michaela Cota preeclampsia, grandmother has custody HPI est ob 38 weeks NST: Details: HANSEL CRUZ is a 27 year old who presents for routine OB visit. OB Visit ALY Calculator Estimated Delivery Date 05/19/18 Based on LMP (certain) 08/12/17 Current WG 38w 4d Number 1 Expected Delivery Route/Plan Specific Issue/Plans flu vaccine declined minichart given: yes tdap vaccine: [] rhogam: NA LARC form signed: [] labor support person:Emily pain management: natural cut cord/dad catch: [] : yes PP control planned: [] special requests: [] Initial Weight: 310 lb Date Weight BP Urine PrFHR FuHt Pres MoCTX DilationFetal StVisit NoProviderComments E ot v te GA G Effac lucose ed Visit Notes Visit Date: 05/09/18 no vb lof good fm irregular ctx Michaela Cota MD on 05/09/18 Visit Date: 05/02/18 no vb lof good fm no regular ctx. having some nausea Michaela Cota MD on 05/02/18 Visit Date: 04/25/18 No VB, LOF. lots of pressure. Many social issues,stress. Concerned with sometimes sees spots and ankles swelling. SHAHZAD Aquino on 04/25/18 Visit Date: 04/11/18 nst reactive no vb lof good fm no regular ctx Michaela Cota MD on 04/11/18 Visit Date: 04/05/18 No visit notes to display Visit Date: 03/28/18 no vb lof good fm no egular ctx Michaela Cota MD on 03/28/18 Visit Date: 03/14/18 ordered vaginal treatment for trich Michaela Cota MD on 03/14/18 Visit Date: 02/28/18 Doing well. No VB, LOF. No longer with FOB. Unsure how much he will be involved SHAHZAD Aquino on 02/28/18 Visit Date: 02/08/18 No LOF, VB, CTX. Good Fm SHAHZAD Aquino on 02/08/18 Visit Date: 12/07/17 Doing well. Denies VB, LOF SHAHZAD Aquino on 12/07/17 Visit Date: 11/10/17 Nausea improved. Denies VB, LOF. SHAHZAD Aquino on 11/10/17 ACOG First Trimester First Trimester: Desire for , Alcohol, Tobacco Cessation, Illicit/Recreational Drug/Substance Use, Intimate Partner Violence, Barriers to care, Unstable Housing, Communication Barriers, Environmental/Work Hazards, Anticipated Course of Care, Toxoplasmosis Precations, Use of Any medications, Sexual activity, Exercise, Dental Care, Sauna/Hot tub use, Seat Belt use, Childbirth classes/Hospital facilities, , Travel, Indications for US and Screening for Aneuploidy Diagnostics Diagnostics Labs Blood Type O POSITIVE 04/05/18 Antibody Screen NEGATIVE 04/05/18 Hct 33.6 % (37-47) L 04/05/18 Hgb 11.4 g/dl (12.0-15.0) L 04/05/18 Obstetrics Ultrasound 05/09/18 Chlam trachomat DNA PCR Negative (Negative) 04/25/18 N.gonorrhoeae DNA (PCR) Negative (Negative) 04/25/18 Group B Strep DNA Negative (Negative) 04/25/18 Details: HIV: Urine Culture: Sequential Screen: NIPT Screen: ROS Const Denies fever(s) GI Denies abdominal pain, Reports as per HPI Denies vaginal discharge, Denies abnormal vaginal bleeding, Reports as per HPI Exam Const General: healthy appearing, comfortable, no acute distress GI Inspection: normal to inspection Palpation: soft, nontender Results [id number] Office Urine Glucose Negative Last Edit by Yanni Linton on 05/09/18 13:02 Office Urine Protein Negative Last Edit by Yanni Linton on 05/09/18 13:02 Assessment AND Plan Problems 1. Trichimoniasis A59.9 Treated flagyl X 3 times. Persistent positive and refuses further treatment. Not sexually active since 16 wk 2. BMI 45.0-49.9, adult Z68.42 1st glucola discussed healthy weight gain in 3. Supervision of high risk due to social problems in third trimester O09.73 PRR ALY 05/19/18 PC Renato (doesn't have custody of others) boyfriend- Emily 4. complicated by tobacco use in third trimester O99.333 encouraged cessation. 11/10 down to 3-4 cig/day 02/28 using patches. 1 cig per day or less Plan movement and labor precautions reviewed. ACOG trimester education reviewed and updated. see problem list details for updated plan management information and see below for orders placed at this visit. GA appropriate handout given. consider iol next week if favorable Orders Orders: Coding Level of Care Code OB Routine Diagnoses Trichimoniasis A59.9 BMI 45.0-49.9, adult Z68.42 Supervision of high risk due to social problems in third trimester O09. Trimester: third trimester complicated by tobacco use in third trimester O99.333 Trimester: third trimester 05/09/18 1351 <Electronically signed by Michaela Cota MD> Date Michaela Cota MD Cosign Signature: Date (if applicable) CC: OB LIMITED WITH Observed: 05/09/2018 Status: F Source: [facility] [employer] 8:58 AM [facility] REPOSITORY [facility] Imaging Services [address] [place] [id number] OB Limited With Biometrics MR#: [id number] Acct: [id number] Name: HANSEL CRUZ Rep #: [id number] : 1990 F 27 From: Roel Espinoza MD PCP: Care Physician, No Primary Status: REG CLI Study: OB Limited With Biometrics Date of Exam: 05/09/18 Exam# [id number] Ordering Dr: Michaela Cota MD STUDY: SECOND AND THIRD TRIMESTER OBSTETRICAL ULTRASOUND - LIMITED REASON FOR EXAM: Female, 27 years old. well-being. 6, para 5. LMP: 08/02/2017 PRIOR ULTRASOUND: 03/24/2018. TECHNIQUE: Transabdominal. chief technologist documented limited ultrasound study due to patient body habitus. TECHNICAL QUALITY: Adequate. FINDINGS: There is a single intrauterine fetus. The fetus is in a cephalic presentation. There is demonstrated cardiac activity with a heart rate of 143 bpm. There is a normal amniotic fluid volume. The largest amniotic fluid pocket measures 6.0 cm. The amniotic fluid index (POLO) is 12.7 cm. The placenta is fundal There are Grade 1 placental changes. The cervix measures 3.2 cm in length. BIOMETRY: BPD: 9.4: 38 weeks, 4 days HC: 34.3: 39 weeks, 5 days AC: 37.3: 41 weeks, 2 days FL: 7.2: 36 weeks, 6 days Age by LMP: 38 weeks, 4 days. ALY by LMP: 05/19/2018. age by prior US: 39 weeks, 2 days. ALY by prior US: 05/14/2018. age by current US: 39 weeks, 1 days. ALY by current US: 05/15/2018. Estimated weight: 3897 grams, +/- 569 grams, 90 percentile. US/OB Limited With Biometrics IMPRESSION: Live intrauterine with normal-appearing growth (90th percentile EFW) and heart rate 143 BPM as described. Placenta appears fundal. Electronically Signed: Roel Espinoza, at 10:54 EDT Tel , Service support , CC: No Primary Care Physician; Michaela Cota MD Machine Sign Writer: Signed FOOD RUNNER OFFICE VISIT Observed: 05/02/2018 Status: F Source: VIJAYA REPORT 3:37 PM [facility]'s [address] [place] [address] OFFICE VISIT Date of Service: 05/02/18 MR#: [id number] Acct: [id number] Name: HANSEL CRUZ Rep #: [id number] : 1990 Provider: Michaela Cota MD Age/Sex: 27/F [place] [facility] [place]: Signed Intake Vital Signs05/02/18 Height 5 ft 6 in 05/02/18 Weight: 313 lb 05/02/18 Body Mass Index (BMI) 50.5 05/02/18 Blood Pressure 102/68 Intake Visit Reasons: est ob 37 weeks NST Chief Complaint: est ob, NST Professional Development Director Required: No Is patient in pain?: No Allergies No Known Allergies Allergy (Verified 05/02/18 14:55) Medications vitamin,calcium,bncqiaba-hqpy-refuh acid tablet 1 tab PO QDAY 11/10/17 [History Confirmed 05/02/18] ondansetron HCl 4 mg tablet 4 mg PO .COMPLEX PRN #2 tab 02/08/18 [Rx Confirmed 05/02/18] Last Menstral Period: 08/10/17 Zika: Zika virus screening: Negative : No PFSH PFSH Medical History Preeclampsia (Acute) Social History Smoking Status: Current every day smoker alcohol intake: never substance use type: does not use caffeine: Yes frequency: 1-2 times per week seatbelt use: always do you feel safe at home: Yes additional social history: Emily- unemployed Single- [employer] in old 29 Pregancy History 6 Elective abortions Hx Para 5 Spontaneous abortions Past Pregnancies Del. DateName GA/Weeks Outcome Route Bth WeighInfant GeLabor LgtAnesthesiDel LocatProvider FOB t n h a n Delivery Date: On 10/13/17 @ 14:25 Michaela Cota has custody Delivery Date: On 10/13/17 @ 14:25 Michaela Cota adopted out Delivery Date: On 10/13/17 @ 14:24 Michaela Cota adopted out Delivery Date: On 10/13/17 @ 14:24 Michaela Cota grandma has custody Delivery Date: On 10/13/17 @ 14:26 Michaela Cota preeclampsia, grandmother has custody HPI est ob 37 weeks NST: Details: HANSEL CRUZ is a 27 year old who presents for routine OB visit. OB Visit ALY Calculator Estimated Delivery Date 05/19/18 Based on LMP (certain) 08/12/17 Current WG 37w 4d Number 1 Expected Delivery Route/Plan Specific Issue/Plans flu vaccine declined minichart given: yes tdap vaccine: [] rhogam: NA LARC form signed: [] labor support person:Emily pain management: natural cut cord/dad catch: [] : yes PP control planned: [] special requests: [] Initial Weight: 310 lb Date Weight BP Urine PrFHR FuHt Pres MoCTX DilationFetal StVisit NoProviderComments E ot v te GA G Effac lucose ed Visit Notes Visit Date: 05/02/18 no vb lof good fm no regular ctx. having some nausea Michaela Cota MD on 05/02/18 Visit Date: 04/25/18 No VB, LOF. lots of pressure. Many social issues,stress. Concerned with sometimes sees spots and ankles swelling. SHAHZAD Aquino on 04/25/18 Visit Date: 04/11/18 nst reactive no vb lof good fm no regular ctx Michaela Cota MD on 04/11/18 Visit Date: 04/05/18 No visit notes to display Visit Date: 03/28/18 no vb lof good fm no egular ctx Michaela Cota MD on 03/28/18 Visit Date: 03/14/18 ordered vaginal treatment for trich Michaela Cota MD on 03/14/18 Visit Date: 02/28/18 Doing well. No VB, LOF. No longer with FOB. Unsure how much he will be involved SHAHZAD Aquino on 02/28/18 Visit Date: 02/08/18 No LOF, VB, CTX. Good Fm SHAHZAD Aquino on 02/08/18 Visit Date: 12/07/17 Doing well. Denies VB, LOF SHAHZAD Aquino on 12/07/17 Visit Date: 11/10/17 Nausea improved. Denies VB, LOF. SHAHZAD Aquino on 11/10/17 ACOG First Trimester First Trimester: Desire for , Alcohol, Tobacco Cessation, Illicit/Recreational Drug/Substance Use, Intimate Partner Violence, Barriers to care, Unstable Housing, Communication Barriers, Environmental/Work Hazards, Anticipated Course of Care, Toxoplasmosis Precations, Use of Any medications, Sexual activity, Exercise, Dental Care, Sauna/Hot tub use, Seat Belt use, Childbirth classes/Hospital facilities, , Travel, Indications for US and Screening for Aneuploidy Diagnostics Diagnostics Labs Blood Type O POSITIVE 04/05/18 Antibody Screen NEGATIVE 04/05/18 Hct 33.6 % (37-47) L 04/05/18 Hgb 11.4 g/dl (12.0-15.0) L 04/05/18 Obstetrics Ultrasound 03/24/18 Chlam trachomat DNA PCR Negative (Negative) 04/25/18 N.gonorrhoeae DNA (PCR) Negative (Negative) 04/25/18 Group B Strep DNA Negative (Negative) 04/25/18 Details: HIV: Urine Culture: Sequential Screen: NIPT Screen: ROS Const Denies fever(s) GI Denies abdominal pain, Reports as per HPI Denies vaginal discharge, Denies abnormal vaginal bleeding, Reports as per HPI Exam Const General: healthy appearing, comfortable, no acute distress GI Inspection: normal to inspection Palpation: soft, nontender Office Procedures OB NST Non-Stress Test Indications for Monitoring: Yes BMI >40 Heart Rate Baseline: 140 Heart Rate Variability: moderate Movement: Present Heart Rate Accelerations: Present Decelerations: Absent Contractions: Absent Impression: Yes Reactive Non-Stress Test Category 1 Results [id number] Office Urine Glucose Negative Last Edit by Yanni Linton on 05/02/18 14:57 Office Urine Protein Negative Last Edit by Yanni Linton on 05/02/18 14:57 Assessment AND Plan Problems 1. screening encounter Z36.9 2. BMI 45.0-49.9, adult Z68.42 1st tm glucola discussed healthy weight gain in 3. complicated by tobacco use in third trimester O99.333 encouraged cessation. 11/10 down to 3-4 cig/day 02/28 using patches. 1 cig per day or less 4. Trichimoniasis A59.9 Treated flagyl X 3 times. Persistent positive and refuses further treatment. Not sexually active since 16 wk 5. Supervision of high risk due to social problems in third trimester O09.73 PRR ALY 05/19/18 PC Renato (doesn't have custody of others) boyfriend- Emily Plan ACOG trimester education reviewed and updated. see problem list details for updated plan management information and see below for orders placed at this visit. GA appropriate handout given. Orders Orders: Coding Level of Care Code Off vis,est,level 3 Diagnoses screening encounter Z36.9 BMI 45.0-49.9, adult Z68.42 complicated by tobacco use in third trimester O99.333 Trimester: third trimester Trichimoniasis A59.9 Supervision of high risk due to social problems in third trimester O09.73 Trimester: third trimester Additional Codes Non-Stress Test (17426) 05/02/18 1537 <Electronically signed by Michaela Cota MD> Date Michaela Cota MD Cosigner Signature: Date (if applicable) CC: PROTEIN+CREATININE Collected: Status: F Source: VIJAYA BARRERA,URINE 04/25/2018 7:05 PM [facility] REPOSITORY TYPE CODE TESTS RESULT OUT OF RANGE REFERENCE UNITS LAB L501.1200 NO RANGE EST. mg/dL Normal UR CREAT 53.30 LAB L501.1930 <11.9 mg/dL Normal 9.3 PROTEIN,UR.R AN. LAB L501.1940 0-200 mg/g CRE Normal PROT:CRE 174 RATIO Performed By: #### L501.0900 #### [facility] [address] [place] [place], [address] GROUP B STREP DNA Collected: 04/25/2018 Status: F Source: VIJAYA BY PCR 7:05 PM [facility] REPOSITORY TYPE CODE TESTS RESULT OUT OF RANGE REFERENCE UNITS LAB L8200.0100 Negative Normal GBS TEST Negative RESULT Performed By: #### L8200.0000, L8200.1999 #### [facility] [address] [place], [address] CT/NG [facility] BY PCR Collected: 04/25/2018 Status: F Source: VIJAYA 7:05 PM [facility] REPOSITORY TYPE CODE TESTS RESULT OUT OF RANGE REFERENCE UNITS LAB L8200.2100 Negative Normal Chlam Negative Trac PCR LAB L8200.2200 Negative Normal NG by Negative PCR Performed By: #### L8200.0000, L8200.1999 #### [facility] [address] [place], [address] FOOD RUNNER OFFICE VISIT Observed: 04/25/2018 Status: F Source: VIJAYA REPORT 4:53 PM [facility] REPOSITORY [facility] [address] [place] [address] OFFICE VISIT Date of Service: 04/25/18 MR#: [id number] Acct: [id number] Name: ANTHONYHANSEL M Rep #: [id number] : 1990 Provider: YOLY Sloan Age/Sex: 27/F [place] [facility] [place]: Signed Intake Vital Signs04/25/18 Height 5 ft 6 in 04/25/18 Weight: 314 lb 04/25/18 Body Mass Index (BMI) 50.6 04/25/18 Blood Pressure 133/78 H Intake Visit Reasons: est ob 36 weeks NST Professional Development Director Required: No Is patient in pain?: No Allergies No Known Allergies Allergy (Verified 04/25/18 15:31) Medications vitamin,calcium,vaicggvs-mlzm-pbgmn acid tablet 1 tab PO QDAY 11/10/17 [History Confirmed 04/25/18] ondansetron HCl 4 mg tablet 4 mg PO .COMPLEX PRN #2 tab 02/08/18 [Rx Confirmed 04/25/18] Last Menstral Period: 08/10/17 Zika: Zika virus screening: Negative : No PFSH PFSH Medical History Preeclampsia (Acute) Social History Smoking Status: Current every day smoker alcohol intake: never substance use type: does not use caffeine: Yes frequency: 1-2 times per week seatbelt use: always do you feel safe at home: Yes additional social history: Emily- unemployed Single- [employer] in old 29 Pregancy History 6 Elective abortions Hx Para 5 Spontaneous abortions Past Pregnancies Del. DateName GA/Weeks Outcome Route Bth WeighInfant GeLabor LgtAnesthesiDel LocatProvider FOB t n h a n Delivery Date: On 10/13/17 @ 14:25 Michaela Cota has custody Delivery Date: On 10/13/17 @ 14:25 Michaela Cota adopted out Delivery Date: On 10/13/17 @ 14:24 Michaela Cota adopted out Delivery Date: On 10/13/17 @ 14:24 Michaela Cota grandma has custody Delivery Date: On 10/13/17 @ 14:26 Michaela Cota preeclampsia, grandmother has custody HPI est ob 36 weeks NST: Details: HANSEL CRUZ is a 27 year old who presents for routine OB visit. OB Visit ALY Calculator Estimated Delivery Date 05/19/18 Based on LMP (certain) 08/12/17 Current WG 36w 4d Number 1 Expected Delivery Route/Plan Specific Issue/Plans flu vaccine declined minichart given: yes tdap vaccine: [] rhogam: NA LARC form signed: [] labor support person:Emily pain management: natural cut cord/dad catch: [] : yes PP control planned: [] special requests: [] Initial Weight: 310 lb Date Weight BP Urine PrFHR FuHt Pres MoCTX DilationFetal StVisit NoProviderComments E ot v te GA G Effac lucose ed Visit Notes Visit Date: 04/25/18 No VB, LOF. lots of pressure. Many social issues,stress. Concerned with sometimes sees spots and ankles swelling. SHAHZAD Aquino on 04/25/18 Visit Date: 04/11/18 nst reactive no vb lof good fm no regular ctx Michaela Cota MD on 04/11/18 Visit Date: 04/05/18 No visit notes to display Visit Date: 03/28/18 no vb lof good fm no egular ctx Michaela Cota MD on 03/28/18 Visit Date: 03/14/18 ordered vaginal treatment for trich Michaela Cota MD on 03/14/18 Visit Date: 02/28/18 Doing well. No VB, LOF. No longer with FOB. Unsure how much he will be involved SHAHZAD Aquino on 02/28/18 Visit Date: 02/08/18 No LOF, VB, CTX. Good Fm SHAHZAD Aquino on 02/08/18 Visit Date: 12/07/17 Doing well. Denies VB, LOF SHAHZAD Aquino on 12/07/17 Visit Date: 11/10/17 Nausea improved. Denies VB, LOF. SHAHZAD Aquino on 11/10/17 ACOG First Trimester First Trimester: Desire for , Alcohol, Tobacco Cessation, Illicit/Recreational Drug/Substance Use, Intimate Partner Violence, Barriers to care, Unstable Housing, Communication Barriers, Environmental/Work Hazards, Anticipated Course of Care, Toxoplasmosis Precations, Use of Any medications, Sexual activity, Exercise, Dental Care, Sauna/Hot tub use, Seat Belt use, Childbirth classes/Hospital facilities, , Travel, Indications for US and Screening for Aneuploidy Diagnostics Diagnostics Labs Blood Type O POSITIVE 04/05/18 Antibody Screen NEGATIVE 04/05/18 Hct 33.6 % (37-47) L 04/05/18 Hgb 11.4 g/dl (12.0-15.0) L 04/05/18 Obstetrics Ultrasound 03/24/18 Glucose 1 Hr 50 gm 110 mg/dL (70-140) 03/14/18 Details: HIV: Urine Culture: Sequential Screen: NIPT Screen: ROS Const Reports system reviewed and no additional complaints, except as docu GI Denies nausea, Denies vomiting, Denies abdominal pain Exam Const General: cooperative Nutritional Appearance: well nourished GI Palpation: soft, nontender, other (gravid) Office Procedures OB NST Non-Stress Test Indications for Monitoring: Yes BMI >40 Time: 16:50 Heart Rate Baseline: 140 Heart Rate Variability: moderate Movement: Present Heart Rate Accelerations: Present Decelerations: Absent Contractions: Absent Impression: Yes Reactive Non-Stress Test Results [id number] Office Urine Glucose Negative Last Edit by Macy Amezcua on 04/25/18 15:52 Office Urine Protein Trace Last Edit by Macy Amezcua on 04/25/18 15:52 POCTRICVAG Office Trichomonas vaginalis Positive Last Edit by Macy Amezcua on 04/25/18 16:29 POCBVBLUE Office BVBlue Test Negative Last Edit by Macy Amezcua on 04/25/18 16:29 Assessment AND Plan Problems 1. Supervision of high risk due to social problems in first trimester O PRR ALY 05/19/18 PC Renato (doesn't have custody of others) boyfriend- Emily 2. BMI 45.0-49.9, adult Z68.42 1st tm glucola discussed healthy weight gain in 3. Trichimoniasis A59.9 Treated flagyl X 3 times. Persistent positive and refuses further treatment. Not sexually active since 16 wk 4. complicated by tobacco use in third trimester O99.333 encouraged cessation. 11/10 down to 3-4 cig/day 02/28 using patches. 1 cig per day or less 5. 36 weeks gestation of Z3A.36 Plan Orders placed: GBS, JAREK trich and BV. GCC. Urine protein creatinine ratio. NST: reactive Again positive trich and refuses further treatment Reviewed of labor precautions, movement/kick counts ACOG trimester education reviewed and updated See problem list details for updated plan of care Gestational age appropriate handout given RTO: 1 week Orders Orders: Coding Level of Care Code Off vis,est,level 3 Diagnoses Supervision of high risk due to social problems in first trimester O Trimester: first trimester BMI 45.0-49.9, adult Z68.42 Trichimoniasis A59.9 complicated by tobacco use in third trimester O99.333 Trimester: third trimester 36 weeks gestation of Z3A.36 Additional Codes Non-Stress Test (12739) 04/25/18 1653 <Electronically signed by Nishi RODC> Date Nishi Sloan OSTOMY NURSE-C Cosigner Signature: Date (if applicable) CC: Observed: 04/25/2018 Status: F Source: [facility] CULTURE, GROUP B 12:00 AM [facility] STREPTOCOCCUS REPOSITORY ALFREDO Culture Group B Beta Streptococcus is not isolated. Performed By: #### M100.1800 #### [facility] [address] [place], [address] URINALYSIS, COMPLETE Collected: 04/16/2018 Status: F Source: VIJAYA 8:30 PM [facility] REPOSITORY Order Comment: How was Urine Obtained? CLEAN CATCH TYPE CODE TESTS RESULT OUT OF RANGE REFERENCE UNITS LAB L400.3000 Yellow COLOR Normal Yellow LAB L400.3050 Clear Normal CLARITY Sl. Cloudy LAB L400.3200 Normal mg/dl Normal GLUCOSE, UR Normal LAB L400.3300 Negative mg/dL Normal BILIRUBIN URINE Negative LAB L400.3400 Negative mg/dl High 5 KETONE UR LAB L400.3465 1.002-1.030 Normal SP.GR. DIPSTX 1.025 LAB L400.3550 5.0 - 8.0 pH UR Normal 6.5 LAB L400.3600 Negative mg/dl High PROT 30 DIPSTX LAB L400.3700 Normal mg/dl High 4 UROBILI LAB L400.3750 Negative Normal NITRITE UR Negative LAB L400.3780 Negative /ul High 10 OCCULT BLOOD-UR LAB L400.3800 Negative /ul High LEUK ESTERASE 500 LAB L400.4050 0-5 /hpf WBC Normal 0-5 SEEN LAB L400.4100 0-5 /hpf 0 Normal RBC-UA SEEN LAB L400.4150 5-10 /hpf SQUAM Normal EPI 10-25 SEEN LAB L400.4300 None Seen /hpf 1+ Normal BACTERIA LAB L400.4350 <or=2+ /hpf 1+ Normal MUCUS, URINE LAB L400.4700 <or=2+ /hpf CA OX 2+ Normal CRYSTAL Performed By: #### L400.0001, M100.0650 #### [facility] [address] [place], [address] Observed: 04/16/2018 Status: F Source: VIJAYA CULTURE, URINE 8:30 PM [facility] REPOSITORY Order Date: 04/16/18 Has pt arrived? Y Urine Culture ORGANISM 1: Mixed Gram Positive Organisms [place] Count 1000-10,000 MIX CULTURE Mixed contaminants. Submit a new specimen if indicated. Performed By: #### L400.0001, M100.0650 #### [facility] [address] [place], [address] FOOD RUNNER OFFICE VISIT Observed: 04/11/2018 Status: F Source: VIJAYA REPORT 4:55 PM [facility] REPOSITORY [facility] [address] [place] [address] OFFICE VISIT Date of Service: 04/11/18 MR#: [id number] Acct: [id number] Name: HANSEL CRUZ Rep #: [id number] : 1990 Provider: Michaela Cota MD Age/Sex: 27/F [place] [facility] [place]: Signed Intake Vital Signs04/11/18 Height 5 ft 6 in 04/11/18 Weight: 308 lb 4 oz 04/11/18 Body Mass Index (BMI) 49.7 04/11/18 Blood Pressure 116/70 Intake Visit Reasons: est ob 34 weeks NST Chief Complaint: Pt. states she has cramping all day when working Professional Development Director Required: No Is patient in pain?: No Allergies No Known Allergies Allergy (Verified 04/11/18 15:42) Medications vitamin,calcium,fhlggwie-xifs-dvato acid tablet 1 tab PO QDAY 11/10/17 [History Confirmed 04/11/18] ondansetron HCl 4 mg tablet 4 mg PO .COMPLEX PRN #2 tab 02/08/18 [Rx Confirmed 04/11/18] Last Menstral Period: 08/10/17 Zika: Zika virus screening: Negative : No PFSH PFSH Medical History Preeclampsia (Acute) Social History Smoking Status: Current every day smoker alcohol intake: never substance use type: does not use caffeine: Yes frequency: 1-2 times per week seatbelt use: always do you feel safe at home: Yes additional social history: Emily- unemployed Single- [employer] in old 29 Pregancy History 6 Elective abortions Hx Para 5 Spontaneous abortions Past Pregnancies Del. DateName GA/Weeks Outcome Route Bth WeighInfant GeLabor LgtAnesthesiDel LocatProvider FOB t n h a n Delivery Date: On 10/13/17 @ 14:25 Michaela Cota has custody Delivery Date: On 10/13/17 @ 14:25 Michaela Cota adopted out Delivery Date: On 10/13/17 @ 14:24 Michaela Cota adopted out Delivery Date: On 10/13/17 @ 14:24 Michaela Cota grandma has custody Delivery Date: On 10/13/17 @ 14:26 Michaela Cota preeclampsia, grandmother has custody HPI est ob 34 weeks NST: Details: HANSEL CRUZ is a 27 year old who presents for routine OB visit. OB Visit ALY Calculator Estimated Delivery Date 05/19/18 Based on LMP (certain) 08/12/17 Current WG 34w 4d Number 1 Expected Delivery Route/Plan Specific Issue/Plans flu vaccine declined minichart given: yes tdap vaccine: [] rhogam: NA LARC form signed: [] labor support person:Emily pain management: natural cut cord/dad catch: [] : yes PP control planned: [] special requests: [] Initial Weight: 310 lb Date Weight BP Urine PrFHR FuHt Pres MoCTX DilationFetal StVisit NoProviderComments E ot v te GA G Effac lucose ed Visit Notes Visit Date: 04/11/18 nst reactive no vb lof good fm no regular ctx Michaela Cota MD on 04/11/18 Visit Date: 04/05/18 No visit notes to display Visit Date: 03/28/18 no vb lof good fm no egular ctx Michaela Cota MD on 03/28/18 Visit Date: 03/14/18 ordered vaginal treatment for trich Michaela Cota MD on 03/14/18 Visit Date: 02/28/18 Doing well. No VB, LOF. No longer with FOB. Unsure how much he will be involved SHAHZAD Aquino on 02/28/18 Visit Date: 02/08/18 No LOF, VB, CTX. Good Fm SHAHZAD Aquino on 02/08/18 Visit Date: 12/07/17 Doing well. Denies VB, LOF SHAHZAD Aquino on 12/07/17 Visit Date: 11/10/17 Nausea improved. Denies VB, LOF. SHAHZAD Aquino on 11/10/17 ACOG First Trimester First Trimester: Desire for , Alcohol, Tobacco Cessation, Illicit/Recreational Drug/Substance Use, Intimate Partner Violence, Barriers to care, Unstable Housing, Communication Barriers, Environmental/Work Hazards, Anticipated Course of Care, Toxoplasmosis Precations, Use of Any medications, Sexual activity, Exercise, Dental Care, Sauna/Hot tub use, Seat Belt use, Childbirth classes/Hospital facilities, , Travel, Indications for US and Screening for Aneuploidy Diagnostics Diagnostics Labs Blood Type O POSITIVE 04/05/18 Antibody Screen NEGATIVE 04/05/18 Hct 33.6 % (37-47) L 04/05/18 Hgb 11.4 g/dl (12.0-15.0) L 04/05/18 Obstetrics Ultrasound 03/24/18 Glucose 1 Hr 50 gm 110 mg/dL (70-140) 03/14/18 Details: HIV: Urine Culture: Sequential Screen: NIPT Screen: ROS Const Denies fever(s) GI Denies abdominal pain, Reports as per HPI Denies vaginal discharge, Denies abnormal vaginal bleeding, Reports as per HPI Exam Const General: healthy appearing, comfortable, no acute distress GI Inspection: normal to inspection Palpation: soft, nontender Results [id number] Office Urine Glucose Negative Last Edit by Heather Braun on 04/11/18 15:41 Office Urine Protein Trace Last Edit by Heather Braun on 04/11/18 15:41 Assessment AND Plan Problems 1. BMI 45.0-49.9, adult Z68.42 1st tm glucola discussed healthy weight gain in 2. complicated by tobacco use in third trimester O99.333 encouraged cessation. 11/10 down to 3-4 cig/day 02/28 using patches. 1 cig per day or less 3. screening encounter Z36.9 4. Trichimoniasis A59.9 Treated flagyl 12/07/17. Retest next visit 5. Supervision of high risk due to social problems in first trimester O09. PRR ALY 05/19/18 PC Renato (doesn't have custody of others) boyfriend- Emily Plan ACOG trimester education reviewed and updated. see problem list details for updated plan management information and see below for orders placed at this visit. GA appropriate handout given. Orders Orders: Coding Level of Care Code Off vis,est,level 3 Diagnoses BMI 45.0-49.9, adult Z68.42 complicated by tobacco use in third trimester O99.333 Trimester: third trimester screening encounter Z36.9 Trichimoniasis A59.9 Supervision of high risk due to social problems in first trimester O09. Trimester: first trimester 04/11/18 1655 <Electronically signed by Michaela Cota MD> Date Michaela Cota MD Cosigner Signature: Date (if applicable) CC: URINE DRUG SCREEN Collected: 04/05/2018 Status: F Source: VIJAYA (VISTA) 5:35 PM [facility] REPOSITORY TYPE CODE TESTS RESULT OUT OF RANGE REFERENCE UNITS LAB L505.0075 TO BE Normal CONFIRMED Result Comment: CONFIRMATORY TESTING FOR ALL POSITIVE URINE DRUG SCREEN RESULTS WILL ONLY BE SENT OUT UPON PHYSICIAN ORDER. VISTA Urine Drug Screen methods provide only preliminary analytical test results. A more specific alternate chemical method must be used in order to obtain a confirmed analytical result. Gas chromatography/mass spectrometery (GC/MS) is the preferred confirmatory method. Clinical consideration and professional judgement should be applied to any drug of abuse test result, particularly when preliminary positive results are used. URINE TCA TESTING MUST BE ORDERED SEPARATELY. USE TEST MNEMONIC: [facility] LAB L505.5005 VISTA UDS PH 6 Normal LAB L505.5015 <1000 ng/mL AMPHETAMINES Normal NEGATIVE LAB L505.5025 < 200 ng/mL BARBITIURATES Normal NEGATIVE LAB L505.5035 < 200 ng/mL BENZODIAZIPINE Normal NEGATIVE LAB L505.5045 < 300 ng/mL COCAINE Normal NEGATIVE LAB L505.5055 < 500 ng/mL ECSTACY Normal NEGATIVE LAB L505.5065 < 300 ng/mL METHADONE Normal NEGATIVE LAB L505.5075 < 300 ng/mL OPIATES Normal NEGATIVE LAB L505.5085 < 25 ng/mL PCP Normal NEGATIVE LAB L505.5095 < 50 ng/mL THC Normal NEGATIVE Performed By: #### L505.5000 #### [facility] [address] [place], [address] CBC W/DIFF, AUTOMATED Collected: 04/05/2018 Status: F Source: [place] 4:13 PM [facility] REPOSITORY TYPE CODE TESTS RESULT OUT OF RANGE REFERENCE UNITS LAB L100.1000 4.4-11.0 K/mm3 Normal WBC 10.6 LAB L100.1200 4.2-5.4 M/mm3 Low RBC 3.68 LAB L100.1300 12.0-15.0 g/dl Low HGB 11.4 LAB L100.1400 37-47 % Low HCT 33.6 LAB L100.1500 81-99 fL Normal MCV 91.3 LAB L100.1600 27.0-32.0 pg Normal MCH 31.0 LAB L100.1700 32-36 g/gl Normal MCHC 33.9 LAB L100.1810 11.6-14.6 % Normal RDW CV 13.6 LAB L100.1820 35.1-43.9 fl High RDW SD 44.1 LAB L100.1900 150-450 K/mm3 Normal PLT 228 LAB L100.2000 6.2-12.0 fl Normal MPV 9.1 LAB L100.2100 47-70 % High NEUT% 72.5 LAB L100.2200 19-41 % Normal LY% 20.5 LAB L100.2300 0-10 % Normal MONO% 4.5 LAB L100.2400 0-5 % Normal EO% 2.0 LAB L100.2500 0-1 % Normal BASO% 0.2 LAB L100.2550 0.0-0.9 % Normal IM GRAN % 0.300 Result Comment: IG% - Immature Granulocytes (promyelocytes, myelocytes and metamyelocytes) > 1% indicates that a LEFT SHIFT is Present. LAB L100.2620 2.0-7.7 X10 3/uL Normal Absolute Neut 7.7 LAB L100.2720 0.83-4.51 X10 3/ul Normal Absolute Lymph 2.17 Performed By: #### L100.0100 #### [facility] [address] [place], [address] TYPE AND SCREEN Collected: 04/05/2018 Status: F Source: [place] 4:13 PM [facility] REPOSITORY Order Comment: Reason for Type AND Screen/Red Cells: ROUTINE TYPE CODE TESTS RESULT OUT OF RANGE REFERENCE UNITS LAB B10.0800 O Normal BLOOD TYPE GEL POSITIVE LAB B100.4000 Normal Antibody NEGATIVE Screen Performed By: #### B101.7450, L300.4700 #### [facility] [address] [place], [address] FIBRINOGEN Collected: 04/05/2018 Status: F Source: [place] 4:13 PM [facility] REPOSITORY TYPE CODE TESTS RESULT OUT OF RANGE REFERENCE UNITS LAB L300.4700 203-444 mg/dl High FIB 564 Performed By: #### B101.7450, L300.4700 #### [facility] [address] [place], [address] FOOD RUNNER OFFICE VISIT Observed: 04/05/2018 Status: F Source: VIJAYA REPORT 3:56 PM [facility] REPOSITORY [facility] [address] [place] [address] OFFICE VISIT Date of Service: 04/05/18 MR#: [id number] Acct: [id number] Name: HANSEL CRUZ Rep #: [id number] : 1990 Provider: YOLY Sloan Age/Sex: 27/F [place] [facility] [place] Status: Signed Intake Vital Signs04/05/18 Height 5 ft 6 in 04/05/18 Weight: 304 lb 6 oz 04/05/18 Body Mass Index (BMI) 49.1 04/05/18 Blood Pressure 113/70 Intake Visit Reasons: NST 33 weeks Professional Development Director Required: No Is patient in pain?: No Allergies No Known Allergies Allergy (Verified 04/05/18 14:53) Medications vitamin,calcium,lrfrhjfg-wiux-tvcnx acid tablet 1 tab PO QDAY 11/10/17 [History Confirmed 04/05/18] ondansetron HCl 4 mg tablet 4 mg PO .COMPLEX PRN #2 tab 02/08/18 [Rx Confirmed 04/05/18] Last Menstral Period: 08/10/17 Zika: Zika virus screening: Negative : No PFSH PFSH Medical History Preeclampsia (Acute) Social History Smoking Status: Current every day smoker alcohol intake: never substance use type: does not use caffeine: Yes frequency: 1-2 times per week seatbelt use: always do you feel safe at home: Yes additional social history: Emily- unemployed Single- [employer] in old 29 Pregancy History 6 Elective abortions Hx Para 5 Spontaneous abortions Past Pregnancies Del. DateName GA/Weeks Outcome Route Bth WeighInfant GeLabor LgtAnesthesiDel LocatProvider FOB t n h a n Delivery Date: On 10/13/17 @ 14:25 Michaela Cota has custody Delivery Date: On 10/13/17 @ 14:25 Michaela Cota adopted out Delivery Date: On 10/13/17 @ 14:24 Michaela Cota adopted out Delivery Date: On 10/13/17 @ 14:24 Michaela Cota grandma has custody Delivery Date: On 10/13/17 @ 14:26 Michaela Cota preeclampsia, grandmother has custody HPI NST 33 weeks: Details: HANSEL CRUZ is a 27 year old who presents for NST OB Visit ALY Calculator Estimated Delivery Date 05/19/18 Based on LMP (certain) 08/12/17 Current WG 33w 5d Number 1 Expected Delivery Route/Plan Specific Issue/Plans flu vaccine declined minichart given: yes tdap vaccine: [] rhogam: NA LARC form signed: [] labor support person:Emily pain management: natural cut cord/dad catch: [] : yes PP control planned: [] special requests: [] Initial Weight: 310 lb Date Weight BP Urine PrFHR FuHt Pres MoCTX DilationFetal StVisit NoProviderComments E ot v te GA G Effac lucose ed Visit Notes Visit Date: 04/05/18 No visit notes to display Visit Date: 03/28/18 no vb lof good fm no egular ctx Michaela Cota MD on 03/28/18 Visit Date: 03/14/18 ordered vaginal treatment for trich Michaela Cota MD on 03/14/18 Visit Date: 02/28/18 Doing well. No VB, LOF. No longer with FOB. Unsure how much he will be involved SHAHZAD Aquino on 02/28/18 Visit Date: 02/08/18 No LOF, VB, CTX. Good Fm SHAHZAD Aquino on 02/08/18 Visit Date: 12/07/17 Doing well. Denies VB, LOF SHAHZAD Aquino on 12/07/17 Visit Date: 11/10/17 Nausea improved. Denies VB, LOF. SHAHZAD Aquino on 11/10/17 ACOG First Trimester First Trimester: Desire for , Alcohol, Tobacco Cessation, Illicit/Recreational Drug/Substance Use, Intimate Partner Violence, Barriers to care, Unstable Housing, Communication Barriers, Environmental/Work Hazards, Anticipated Course of Care, Toxoplasmosis Precations, Use of Any medications, Sexual activity, Exercise, Dental Care, Sauna/Hot tub use, Seat Belt use, Childbirth classes/Hospital facilities, , Travel, Indications for US and Screening for Aneuploidy Diagnostics Diagnostics Labs Hct 34.6 % (37-47) L 03/14/18 Hgb 11.6 g/dl (12.0-15.0) L 03/14/18 Obstetrics Ultrasound 03/24/18 Glucose 1 Hr 50 gm 110 mg/dL (70-140) 03/14/18 Miscellaneous Test 11/14/17 Details: HIV: Urine Culture: Sequential Screen: NIPT Screen: Results [id number] Office Urine Glucose Negative Last Edit by Macy Amezcua on 04/05/18 15:17 Office Urine Protein Negative Last Edit by Macy Amezcua on 04/05/18 15:17 Assessment AND Plan Problems 1. Supervision of high risk due to social problems in first trimester O PRR ALY 05/19/18 PC Renato (doesn't have custody of others) boyfriend- Emily 2. complicated by tobacco use in third trimester O99.333 encouraged cessation. 11/10 down to 3-4 cig/day 02/28 using patches. 1 cig per day or less 3. BMI 45.0-49.9, adult Z68.42 1st tm glucola discussed healthy weight gain in 4. Trichimoniasis A59.9 Treated flagyl 12/07/17. Retest next visit 5. 33 weeks gestation of Z3A.33 sequential screen negative. normal anatomy scan at F. 6. Non-reassuring electronic monitoring tracing O76 Plan Reviewed monitor strip with Dr. Cota, sinusoidal appearance and sent for to [facility] for further evaluation. Orders Orders: Coding Level of Care Code Off vis,est,level 3 Diagnoses Supervision of high risk due to social problems in first trimester O Trimester: first trimester complicated by tobacco use in third trimester O99 Trimester: third trimester BMI 45.0-49.9, adult Z68.42 Trichimoniasis A59.9 33 weeks gestation of Z3A.33 Non-reassuring electronic monitoring tracing O76 04/05/18 1556 <Electronically signed by Nishi PIKE> Date Nishi PIKE Cosigner Signature: Date (if applicable) CC: FOOD RUNNER OFFICE VISIT Observed: 04/05/2018 Status: F Source: VIJAYA REPORT 5:39 AM [facility] REPOSITORY [facility] [address] [place] [address] OFFICE VISIT Date of Service: 03/28/18 MR#: [id number] Acct: [id number] Name: HANSEL CRUZ Rep #: [id number] : 1990 Provider: Michaela Cota MD Age/Sex: 27/F [place] [facility] [place]: Signed Intake Vital Signs03/28/18 Height 5 ft 6 in 03/28/18 Weight: 305 lb 4 oz 03/28/18 Body Mass Index (BMI) 49.2 03/28/18 Blood Pressure 110/60 Intake Visit Reasons: est ob 32 weeks Chief Complaint: est ob Professional Development Director Required: No Is patient in pain?: No Allergies No Known Allergies Allergy (Verified 03/28/18 16:07) Medications vitamin,calcium,wlpilbkz-gmwr-gmrfr acid tablet 1 tab PO QDAY 11/10/17 [History Confirmed 04/03/18] ondansetron HCl 4 mg tablet 4 mg PO .COMPLEX PRN #2 tab 02/08/18 [Rx Confirmed 04/03/18] Cephalexin 10 ml PO TID #21 dose 04/03/18 [Rx] Last Menstral Period: 08/10/17 Zika: Zika virus screening: Negative : No PFSH PFS Medical History Preeclampsia (Acute) Social History Smoking Status: Current every day smoker alcohol intake: never substance use type: does not use caffeine: Yes frequency: 1-2 times per week seatbelt use: always do you feel safe at home: Yes additional social history: Emily- unemployed Single- [employer] in old 29 Pregancy History 6 Elective abortions Hx Para 5 Spontaneous abortions Past Pregnancies Del. DateName GA/Weeks Outcome Route Bth WeighInfant GeLabor LgtAnesthesiDel LocatProvider FOB t n h a n Delivery Date: On 10/13/17 @ 14:25 Michaela Cota has custody Delivery Date: On 10/13/17 @ 14:25 Michaela Cota adopted out Delivery Date: On 10/13/17 @ 14:24 Michaela Cota adopted out Delivery Date: On 10/13/17 @ 14:24 Michaela Cota grandma has custody Delivery Date: On 10/13/17 @ 14:26 Michaela Cota preeclampsia, grandmother has custody HPI est ob 32 weeks: Details: HANSEL CRUZ is a 27 year old who presents for routine OB visit. OB Visit ALY Calculator Estimated Delivery Date 05/19/18 Based on LMP (certain) 08/12/17 Current WG 33w 5d Number 1 Expected Delivery Route/Plan Specific Issue/Plans flu vaccine declined minichart given: yes tdap vaccine: [] rhogam: NA LARC form signed: [] labor support person:Emily pain management: natural cut cord/dad catch: [] : yes PP control planned: [] special requests: [] Initial Weight: 310 lb Date Weight BP Urine PrFHR FuHt Pres MoCTX DilationFetal StVisit NoProviderComments E ot v te GA G Effac lucose ed Visit Notes Visit Date: 03/28/18 no vb lof good fm no egular ctx Michaela Cota MD on 03/28/18 Visit Date: 03/14/18 ordered vaginal treatment for trich Michaela Cota MD on 03/14/18 Visit Date: 02/28/18 Doing well. No VB, LOF. No longer with FOB. Unsure how much he will be involved SHAHZAD Aquino on 02/28/18 Visit Date: 02/08/18 No LOF, VB, CTX. Good Fm SHAHZAD Aquino on 02/08/18 Visit Date: 12/07/17 Doing well. Denies VB, LOF SHAHZAD Aquino on 12/07/17 Visit Date: 11/10/17 Nausea improved. Denies VB, LOF. SHAHZAD Aquino on 11/10/17 ACOG First Trimester First Trimester: Desire for , Alcohol, Tobacco Cessation, Illicit/Recreational Drug/Substance Use, Intimate Partner Violence, Barriers to care, Unstable Housing, Communication Barriers, Environmental/Work Hazards, Anticipated Course of Care, Toxoplasmosis Precations, Use of Any medications, Sexual activity, Exercise, Dental Care, Sauna/Hot tub use, Seat Belt use, Childbirth classes/Hospital facilities, , Travel, Indications for US and Screening for Aneuploidy Diagnostics Diagnostics Labs Hct 34.6 % (37-47) L 03/14/18 Hgb 11.6 g/dl (12.0-15.0) L 03/14/18 Obstetrics Ultrasound 03/24/18 Glucose 1 Hr 50 gm 110 mg/dL (70-140) 03/14/18 Miscellaneous Test 11/14/17 Details: HIV: Urine Culture: Sequential Screen: NIPT Screen: Office Procedures OB NST Non-Stress Test Indications for Monitoring: Yes BMI >40 Heart Rate Baseline: 150 Heart Rate Variability: moderate Movement: Present Heart Rate Accelerations: Present Decelerations: Absent Contractions: Absent Impression: Yes Reactive Non-Stress Test Category 1 Results [id number] Office Urine Glucose Negative Last Edit by Yanni Linton on 03/28/18 15:27 Office Urine Protein 1+ Last Edit by Yanni Linton on 03/28/18 15:27 not enough to send for urine protein creat. ratio Assessment AND Plan Problems 1. BMI 45.0-49.9, adult Z68.42 1st tm glucola discussed healthy weight gain in 2. complicated by tobacco use in third trimester O99.333 encouraged cessation. 11/10 down to 3-4 cig/day 02/28 using patches. 1 cig per day or less 3. Trichimoniasis A59.9 Treated flagyl 12/07/17. Retest next visit 4. Supervision of high risk due to social problems in first trimester O09.71 PRR ALY 05/19/18 LEESA Gross (doesn't have custody of others) boyfriend- Emily 5. 33 weeks gestation of Z3A.33 sequential screen negative. normal anatomy scan at [facility]. Plan movement and labor precautions reviewed. ACOG trimester education reviewed and updated. see problem list details for updated plan management information and see below for orders placed at this visit. [place] appropriate handout given. Orders Orders: Coding Level of Care Code Off vis,est,level 3 Diagnoses BMI 45.0-49.9, adult Z68.42 complicated by tobacco use in third trimester O99.333 Trimester: third trimester Trichimoniasis A59.9 Supervision of high risk due to social problems in first trimester O09.71 Trimester: first trimester 33 weeks gestation of Z3A.33 Additional Codes Non-Stress Test (26859) 04/05/18 0539 <Electronically signed by Michaela Cota MD> Date Michaela Cota MD Cosigner Signature: Date (if applicable) CC: URINALYSIS, ROUTINE Collected: 04/03/2018 Status: F Source: VIJAYA (DIPSTICK) 7:35 PM [facility] REPOSITORY Order Comment: How was Urine Obtained? DISEASE CONTROL INSPECTOR TO SPECIFY TYPE CODE TESTS RESULT OUT OF RANGE REFERENCE UNITS LAB L400.3000 Yellow COLOR Normal Yellow LAB L400.3050 Clear Normal CLARITY Clear LAB L400.3200 Normal mg/dl Normal GLUCOSE, UR Normal LAB L400.3300 Negative mg/dL High BILIRUBIN URINE 1 Result Comment: COLOR OF URINE MAY AFFECT DIPSTICK RESULTS. LAB L400.3400 Negative mg/dl High KETONE UR 15 LAB L400.3465 1.002-1.030 Normal SP.GR. DIPSTX 1.030 LAB L400.3550 5.0 - 8.0 pH Normal UR 5.0 LAB L400.3600 Negative mg/dl High PROT DIPSTX 30 LAB L400.3700 Normal mg/dl High UROBILI 4 LAB L400.3750 Negative Normal NITRITE UR Negative LAB L400.3780 Negative /ul High OCCULT 50 BLOOD-UR LAB L400.3800 Negative /ul High LEUK ESTERASE 500 Performed By: #### L400.2010, L205.0000 #### [facility] [address] [place], [address] FIBRONECTIN Collected: 04/03/2018 Status: F Source: [place] 7:35 PM [facility] REPOSITORY TYPE CODE TESTS RESULT OUT OF RANGE REFERENCE UNITS LAB L205.0100 Normal fFN Negative Performed By: #### L400.2010, L205.0000 #### [facility] [address] [place], [address] OB LIMITED WITH Observed: 03/24/2018 Status: F Source: [place] BIOMETRICS 4:45 PM [facility] REPOSITORY [facility] Imaging Services [address] [place] [address] OB Limited With Biometrics MR#: [id number] Acct: [id number] Name: HANSEL CRUZ Rep #: [id number] : 1990 F 27 From: Claude Smart MD PCP: Mayte Davis DO Status: REG CLI Study: OB Limited With Biometrics Date of Exam: 03/24/18 Exam# [id number] Ordering Dr: Michaela Cota MD STUDY: SECOND AND THIRD TRIMESTER OBSTETRICAL ULTRASOUND - LIMITED REASON FOR EXAM: Female, 27 years old. Routine survey. LMP: 08/12/2017 PRIOR ULTRASOUND: 01/02/2018 TECHNIQUE: Transabdominal ultrasound evaluation was performed. FINDINGS: There is a single intrauterine fetus. The fetus is in a cephalic presentation. There is demonstrated cardiac activity with a heart rate of 142 bpm. There is a normal amniotic fluid volume. The largest amniotic fluid pocket measures 6.05 cm. The amniotic fluid index (POLO) is 17.9 cm. The placenta is posterior in location and is not low lying. There is a succenturiate placenta There are Grade 1 placental changes. The cervix measures 4.1 cm in length. BIOMETRY: BPD: 8.12 cm: 32 weeks, 5 days HC: 29.81 cm: 33 weeks, 1 days AC: 28.44 cm: 32 weeks, 4 days FL: 6.29 cm: 32 weeks, 4 days Age by LMP: 32 weeks, 0 days. ALY by LMP: 05/19/2018. age by prior US: 32 weeks, 6 days. ALY by prior US: 05/13/2018. age by current US: 32 weeks, 5 days. ALY by current US: 05/14/2018. Estimated weight: 2000 grams, +/- 292 grams, 58 percentile. US/OB Limited With Biometrics IMPRESSION: Single live intrauterine at 32 weeks, 6 days by current ultrasound with ALY of 05/13/2018. Heart rate of 142 bpm. There is been normal growth since the previous study. There is a succenturiate placenta Electronically Signed: Shade Smart MD at 17:37 EDT , Service support , CC: Mayte Davis DO; Michaela Cota MD Machine Sign Writer: Signed FOOD RUNNER OFFICE VISIT Observed: 03/19/2018 Status: F Source: [place] REPORT 5:02 AM [facility] [address] [place] [address] OFFICE VISIT Date of Service: 03/14/18 MR#: [id number] Acct: [id number] Name: HANSEL CRUZ Rep #: [id number] : 1990 Provider: Michaela Cota MD Age/Sex: 27/F [place] [facility] [place] Status: Signed Intake Vital Signs03/14/18 Height 5 ft 6 in 03/14/18 Weight: 309 lb 2 oz 03/14/18 Body Mass Index (BMI) 49.8 03/14/18 Blood Pressure 110/67 Intake Visit Reasons: est ob Chief Complaint: est ob Professional Development Director Required: No Is patient in pain?: No Allergies No Known Allergies Allergy (Verified 02/28/18 15:37) Medications vitamin,calcium,bgiulrly-dqig-cdgbs acid tablet 1 tab PO QDAY 11/10/17 [History Confirmed 02/28/18] ondansetron HCl 4 mg tablet 4 mg PO .COMPLEX PRN #2 tab 02/08/18 [Rx Confirmed 02/28/18] nicotine 7 mg/24 hr daily transdermal patch 1 patch TRANSDERMAL Q24H #14 ea 02/17/18 [Rx Confirmed 02/28/18] Last Menstral Period: 08/10/17 Zika: Zika virus screening: Negative : No PFSH PFSH Medical History Preeclampsia (Acute) Social History Smoking Status: Current every day smoker alcohol intake: never substance use type: does not use caffeine: Yes frequency: 1-2 times per week seatbelt use: always do you feel safe at home: Yes additional social history: Emily- unemployed Single- [employer] in old 29 Pregancy History 6 Elective abortions Hx Para 5 Spontaneous abortions Past Pregnancies Del. DateName GA/Weeks Outcome Route Bth WeighInfant GeLabor LgtAnesthesiDel LocatProvider FOB t n h a n Delivery Date: On 10/13/17 @ 14:25 Michaela Cota has custody Delivery Date: On 10/13/17 @ 14:25 Michaela Cota adopted out Delivery Date: On 10/13/17 @ 14:24 Michaela Cota adopted out Delivery Date: On 10/13/17 @ 14:24 Michaela Cota grandma has custody Delivery Date: On 10/13/17 @ 14:26 Michaela Cota preeclampsia, grandmother has custody HPI est ob: Details: HANSEL CRUZ is a 27 year old who presents for routine OB visit. OB Visit ALY Calculator Estimated Delivery Date 05/19/18 Based on LMP (certain) 08/12/17 Current WG 31w 2d Number 1 Expected Delivery Route/Plan Specific Issue/Plans flu vaccine declined minichart given: yes tdap vaccine: [] rhogam: NA LARC form signed: [] labor support person:Emily pain management: natural cut cord/dad catch: [] : yes PP control planned: [] special requests: [] Initial Weight: 310 lb Date Weight BP Urine PrFHR FuHt Pres MoCTX DilationFetal StVisit NoProviderComments E ot v te GA G Effac lucose ed Visit Notes Visit Date: 03/14/18 ordered vaginal treatment for trich Michaela Cota MD on 03/14/18 Visit Date: 02/28/18 Doing well. No VB, LOF. No longer with FOB. Unsure how much he will be involved SHAHZAD Aquino on 02/28/18 Visit Date: 02/08/18 No LOF, VB, CTX. Good Fm SHAHZAD Aquino on 02/08/18 Visit Date: 12/07/17 Doing well. Denies VB, LOF SHAHZAD Aquino on 12/07/17 Visit Date: 11/10/17 Nausea improved. Denies VB, LOF. SHAHZAD Aquino on 11/10/17 ACOG First Trimester First Trimester: Desire for , Alcohol, Tobacco Cessation, Illicit/Recreational Drug/Substance Use, Intimate Partner Violence, Barriers to care, Unstable Housing, Communication Barriers, Environmental/Work Hazards, Anticipated Course of Care, Toxoplasmosis Precations, Use of Any medications, Sexual activity, Exercise, Dental Care, Sauna/Hot tub use, Seat Belt use, Childbirth classes/Hospital facilities, , Travel, Indications for US and Screening for Aneuploidy Diagnostics Diagnostics Labs Blood Type O POSITIVE 10/19/17 Antibody Screen NEGATIVE 10/19/17 Hct 34.6 % (37-47) L 03/14/18 Hgb 11.6 g/dl (12.0-15.0) L 03/14/18 Obstetrics Ultrasound 01/02/18 Rubella IgG Antibody 65.2 IU/mL 10/19/17 RPR NONREACTIVE (NONREACTIVE) 10/19/17 Hep Bs Antigen Negative (Negative) 10/19/17 Chlam trachomat DNA PCR Negative (Negative) 10/13/17 N.gonorrhoeae DNA (PCR) Negative (Negative) 10/13/17 Glucose 1 Hr 50 gm 110 mg/dL (70-140) 03/14/18 Miscellaneous Test 11/14/17 Details: HIV: Urine Culture: Sequential Screen: NIPT Screen: ROS Const Denies fever(s) GI Denies abdominal pain, Reports as per HPI Exam Const General: healthy appearing, comfortable, no acute distress GI Inspection: normal to inspection Palpation: soft, nontender Results [email or web address] Office Urine Glucose Negative Last Edit by Yanni Linton on 03/14/18 16:13 Office Urine Protein Negative Last Edit by Yanni Linton on 03/14/18 16:13 Assessment AND Plan Problems 1. Trichimoniasis A59.9 Treated flagyl 12/07/17. Retest next visit 2. screening encounter Z36.9 NT done 11/14/17 3. BMI 45.0-49.9, adult Z68.42 1st tm glucola discussed healthy weight gain in 4. Supervision of high risk due to social problems in first trimester O09. PRR ALY 05/19/18 PC Renato (doesn't have custody of others) boyfriend- Emily 5. complicated by tobacco use in first trimester O99.331 encouraged cessation. 11/10 down to 3-4 cig/day 02/28 using patches. 1 cig per day or less Plan movement and labor precautions reviewed. ACOG trimester education reviewed and updated. see problem list details for updated plan management information and see below for orders placed at this visit. GA appropriate handout given. Orders Orders: Medications Discontinued: metronidazole 0.75% (Metrogel Vaginal) Di1 appful Vaginal QHS 5 days Background Daemon scontinued Reason: By Stop Date Coding Level of Care Code Off vis,est,level 3 Diagnoses Trichimoniasis A59.9 screening encounter Z36.9 BMI 45.0-49.9, adult Z68.42 Supervision of high risk due to social problems in first trimester O09 Trimester: first trimester complicated by tobacco use in first trimester O99.331 Trimester: first trimester 03/19/18 0502 <Electronically signed by Michaela Cota MD> Date Michaela Cota MD Cosigner Signature: Date (if applicable) CC: CBC W/DIFF, AUTOMATED Collected: 03/14/2018 Status: F Source: VIJAYA 3:29 PM [facility] REPOSITORY TYPE CODE TESTS RESULT OUT OF RANGE REFERENCE UNITS LAB L100.1000 4.4-11.0 K/mm3 Normal WBC 8.2 LAB L100.1200 4.2-5.4 M/mm3 Low RBC 3.77 LAB L100.1300 12.0-15.0 g/dl Low HGB 11.6 LAB L100.1400 37-47 % Low HCT 34.6 LAB L100.1500 81-99 fL Normal MCV 91.8 LAB L100.1600 27.0-32.0 pg Normal MCH 30.8 LAB L100.1700 32-36 g/gl Normal MCHC 33.5 LAB L100.1810 11.6-14.6 % Normal RDW CV 13.6 LAB L100.1820 35.1-43.9 fl High RDW SD 44.9 LAB L100.1900 150-450 K/mm3 Normal PLT 266 LAB L100.2000 6.2-12.0 fl Normal MPV 9.0 LAB L100.2100 47-70 % Normal NEUT% 67.2 LAB L100.2200 19-41 % Normal LY% 21.8 LAB L100.2300 0-10 % Normal MONO% 8.9 LAB L100.2400 0-5 % Normal EO% 1.8 LAB L100.2500 0-1 % Normal BASO% 0.1 LAB L100.2550 0.0-0.9 % Normal IM GRAN % 0.200 Result Comment: IG% - Immature Granulocytes (promyelocytes, myelocytes and metamyelocytes) > 1% indicates that a LEFT SHIFT is Present. LAB L100.2620 2.0-7.7 X10 3/uL Normal Absolute Neut 5.5 LAB L100.2720 0.83-4.51 X10 3/ul Normal Absolute Lymph 1.78 Performed By: #### L100.0100 #### [facility] [address] [place], [address] GLUCOSE CHALLENGE GEST Collected: 03/14/2018 Status: F Source: VIJAYA 1H 50G 3:29 PM [facility] REPOSITORY TYPE CODE TESTS RESULT OUT OF RANGE REFERENCE UNITS LAB L501.0250 70-140 mg/dL Normal GLU GEST 110 50g 1H Performed By: #### L501.0250 #### [facility] [address] [place], [place], [id number] URINE DRUG SCREEN Collected: 02/28/2018 Status: F Source: VIJAYA (VISTA) 6:31 PM [facility] REPOSITORY Order Comment: Comments: . List of Drugs Taken or Suspected? . TYPE CODE TESTS RESULT OUT OF RANGE REFERENCE UNITS LAB L505.0075 TO BE Normal CONFIRMED Result Comment: CONFIRMATORY TESTING FOR ALL POSITIVE URINE DRUG SCREEN RESULTS WILL ONLY BE SENT OUT UPON PHYSICIAN ORDER. VISTA Urine Drug Screen methods provide only preliminary analytical test results. A more specific alternate chemical method must be used in order to obtain a confirmed analytical result. Gas chromatography/mass spectrometery (GC/MS) is the preferred confirmatory method. Clinical consideration and professional judgement should be applied to any drug of abuse test result, particularly when preliminary positive results are used. URINE TCA TESTING MUST BE ORDERED SEPARATELY. USE TEST MNEMONIC: [facility] LAB L505.5005 VISTA UDS PH 6 Normal LAB L505.5015 <1000 ng/mL AMPHETAMINES Normal NEGATIVE LAB L505.5025 < 200 ng/mL BARBITIURATES Normal NEGATIVE LAB L505.5035 < 200 ng/mL BENZODIAZIPINE Normal NEGATIVE LAB L505.5045 < 300 ng/mL COCAINE Normal NEGATIVE LAB L505.5055 < 500 ng/mL ECSTACY Normal NEGATIVE LAB L505.5065 < 300 ng/mL METHADONE Normal NEGATIVE LAB L505.5075 < 300 ng/mL OPIATES Normal NEGATIVE LAB L505.5085 < 25 ng/mL PCP Normal NEGATIVE LAB L505.5095 < 50 ng/mL THC Normal NEGATIVE Performed By: #### L505.5000 #### [facility] [address] [place], [place], [address] FOOD RUNNER OFFICE VISIT Observed: 02/28/2018 Status: F Source: VIJAYA REPORT 5:00 PM [facility] REPOSITORY [facility] [address] [place] [address] OFFICE VISIT Date of Service: 02/28/18 MR#: [id number] Acct: [id number] Name: HANSEL CURZ Rep #: [id number] : 1990 Provider: YOLY Sloan Age/Sex: 27/F [place] [facility] [place] Status: Signed Intake Vital Signs02/28/18 Height 5 ft 6 in 02/28/18 Weight: 311 lb 6 oz 02/28/18 Body Mass Index (BMI) 50.2 02/28/18 Blood Pressure 102/61 Intake Visit Reasons: est ob 28 weeks Professional Development Director Required: No Is patient in pain?: No Allergies No Known Allergies Allergy (Verified 02/28/18 15:37) Medications vitamin,calcium,fwiesarb-anxm-nflqn acid tablet 1 tab PO QDAY 11/10/17 [History Confirmed 02/28/18] ondansetron HCl 4 mg tablet 4 mg PO .COMPLEX PRN #2 tab 02/08/18 [Rx Confirmed 02/28/18] nicotine 7 mg/24 hr daily transdermal patch 1 patch TRANSDERMAL Q24H #14 ea 02/17/18 [Rx Confirmed 02/28/18] tinidazole 500 mg tablet 500 mg PO BID 5 Days #10 tab 02/28/18 [Rx Confirmed 02/28/18] Last Menstral Period: 08/10/17 Zika: Zika virus screening: Negative : No PFSH PFSH Medical History Preeclampsia (Acute) Social History Smoking Status: Current every day smoker alcohol intake: never substance use type: does not use caffeine: Yes frequency: 1-2 times per week seatbelt use: always do you feel safe at home: Yes additional social history: Emily- unemployed Single- [employer] in old 29 Pregancy History 6 Elective abortions Hx Para 5 Spontaneous abortions Past Pregnancies Del. DateName GA/Weeks Outcome Route Bth WeighInfant GeLabor LgtAnesthesiDel LocatProvider FOB t n h a n Delivery Date: On 10/13/17 @ 14:25 Michaela Cota has custody Delivery Date: On 10/13/17 @ 14:25 Michaela Cota adopted out Delivery Date: On 10/13/17 @ 14:24 Michaela Cota adopted out Delivery Date: On 10/13/17 @ 14:24 Michaela Cota grandma has custody Delivery Date: On 10/13/17 @ 14:26 Michaela Cota preeclampsia, grandmother has custody HPI est ob 28 weeks: Details: HANSEL CRUZ is a 27 year old who presents for routine OB visit. OB Visit ALY Calculator Estimated Delivery Date 05/19/18 Based on LMP (certain) 08/12/17 Current WG 28w 4d Number 1 Expected Delivery Route/Plan Specific Issue/Plans flu vaccine declined minichart given: yes tdap vaccine: [] rhogam: NA LARC form signed: [] labor support person:Emily pain management: natural cut cord/dad catch: [] : yes PP control planned: [] special requests: [] Initial Weight: Not Recorded Date Weight BP Urine PrFHR FuHt Pres MoCTX DilationFetal StVisit NoProviderComments E ot v te GA G Effac lucose ed Visit Notes Visit Date: 02/28/18 Doing well. No VB, LOF. No longer with FOB. Unsure how much he will be involved SHAHZAD Aquino on 02/28/18 Visit Date: 02/08/18 No LOF, VB, CTX. Good Fm SHAHZAD Aquino on 02/08/18 Visit Date: 12/07/17 Doing well. Denies VB, LOF SHAHZAD Aquino on 12/07/17 Visit Date: 11/10/17 Nausea improved. Denies VB, LOF. SHAHZAD Aquino on 11/10/17 ACOG First Trimester First Trimester: Desire for , Alcohol, Tobacco Cessation, Illicit/Recreational Drug/Substance Use, Intimate Partner Violence, Barriers to care, Unstable Housing, Communication Barriers, Environmental/Work Hazards, Anticipated Course of Care, Toxoplasmosis Precations, Use of Any medications, Sexual activity, Exercise, Dental Care, Sauna/Hot tub use, Seat Belt use, Childbirth classes/Hospital facilities, , Travel, Indications for US and Screening for Aneuploidy Diagnostics Diagnostics Labs Blood Type O POSITIVE 10/19/17 Antibody Screen NEGATIVE 10/19/17 Hct 37.7 % (37-47) 10/19/17 Hgb 12.8 g/dl (12.0-15.0) 10/19/17 Obstetrics Ultrasound 01/02/18 Rubella IgG Antibody 65.2 IU/mL 10/19/17 RPR NONREACTIVE (NONREACTIVE) 10/19/17 Hep Bs Antigen Negative (Negative) 10/19/17 Chlam trachomat DNA PCR Negative (Negative) 10/13/17 N.gonorrhoeae DNA (PCR) Negative (Negative) 10/13/17 Glucose 1 Hr 50 gm 119 mg/dL (70-140) 10/19/17 Miscellaneous Test 11/14/17 Group B Strep DNA Negative (Negative) 09/07/13 Rhogam given: No 10/12/13 Details: HIV: Urine Culture: Sequential Screen: NIPT Screen: ROS Const Reports system reviewed and no additional complaints, except as docu GI Denies nausea, Denies vomiting, Denies abdominal pain Exam Const General: cooperative Nutritional Appearance: well nourished GI Palpation: soft, nontender, other (gravid) Results [id number] Office Urine Glucose Negative Last Edit by Macy Amezcua on 02/28/18 15:42 Office Urine Protein Trace Last Edit by Macy Amezcua on 02/28/18 15:42 POCTRICVAG Office Trichomonas vaginalis Positive Last Edit by Macy Amezcua on 02/28/18 16:40 Assessment AND Plan Problems 1. Supervision of high risk due to social problems in first trimester O09.71 PRR ALY 05/19/18 PC Renato (doesn't have custody of others) boyfriend- Emily 2. complicated by tobacco use in first trimester O99.331 encouraged cessation. 11/10 down to 3-4 cig/day 02/28 using patches. 1 cig per day or less 3. BMI 45.0-49.9, adult Z68.42 1st tm glucola discussed healthy weight gain in 4. screening encounter Z36.9 NT done 11/14/17 5. Trichimoniasis A59.9 Treated flagyl 12/07/17. Retest next visit Plan Orders placed: repeat trich, drug screen Reviewed of labor precautions, movement/kick counts ACOG trimester education reviewed and updated See problem list details for updated plan of care Gestational age appropriate handout given RTO: 2 weeks Orders Orders: Medications New: Coding Level of Care Code Off vis,est,level 3 Diagnoses Supervision of high risk due to social problems in first trimester O09.71 Trimester: first trimester complicated by tobacco use in first trimester O99.331 Trimester: first trimester BMI 45.0-49.9, adult Z68.42 screening encounter Z36.9 Trichimoniasis A59.9 02/28/18 1700 <Electronically signed by Nishi PIKE> Date Nishi PIKE Cosigner Signature: Date (if applicable) CC: FOOD RUNNER OFFICE VISIT Observed: 02/08/2018 Status: F Source: VIJAYA REPORT 3:39 PM [facility] [address] [place] [address] OFFICE VISIT Date of Service: 02/08/18 MR#: [id number] Acct: [id number] Name: HANSEL CRUZ Rep #: [id number] : 1990 Provider: YOLY Sloan Age/Sex: 27/F [place] [facility] [place]: Signed Intake Vital Signs02/08/18 Height 5 ft 6 in 02/08/18 Weight: 308 lb 02/08/18 Body Mass Index (BMI) 49.7 02/08/18 Blood Pressure 118/78 Intake Visit Reasons: est ob 24 weeks Accompanied by: Son Is patient in pain?: No Allergies No Known Allergies Allergy (Verified 02/08/18 15:01) Medications vitamin,calcium,zujmhaee-sqyh-hnzxe acid tablet 1 tab PO QDAY 11/10/17 [History Confirmed 02/08/18] metronidazole 500 mg tablet 500 mg PO .COMPLEX #4 tab 02/08/18 [Rx Confirmed 02/08/18] ondansetron HCl 4 mg tablet 4 mg PO .COMPLEX PRN #2 tab 02/08/18 [Rx Confirmed 02/08/18] Last Menstral Period: 08/10/17 Zika: Zika virus screening: Negative PFSH PFSH Medical History Preeclampsia (Acute) Social History Smoking Status: Current every day smoker alcohol intake: never substance use type: does not use caffeine: Yes frequency: 1-2 times per week seatbelt use: always do you feel safe at home: Yes additional social history: Emily- unemployed Single- [employer] in old 29 Pregancy History 6 Elective abortions Hx Para 5 Spontaneous abortions Past Pregnancies Del. DateName GA/Weeks Outcome Route Bth WeighInfant GeLabor LgtAnesthesiDel LocatProvider FOB t n h a n Delivery Date: On 10/13/17 @ 14:25 Michaela Cota has custody Delivery Date: On 10/13/17 @ 14:25 Michaela Cota adopted out Delivery Date: On 10/13/17 @ 14:24 Michaela Cota adopted out Delivery Date: On 10/13/17 @ 14:24 Michaela Cota grandma has custody Delivery Date: On 10/13/17 @ 14:26 Michaela Cota preeclampsia, grandmother has custody HPI est ob 24 weeks: Details: HANSEL CRUZ is a 27 year old who presents for routine OB visit. OB Visit ALY Calculator Estimated Delivery Date 05/19/18 Based on LMP (certain) 08/12/17 Current WG 25w 5d Number 1 Expected Delivery Route/Plan Specific Issue/Plans flu vaccine declined minichart given: yes tdap vaccine: [] rhogam: NA LARC form signed: [] labor support person:Emily pain management: natural cut cord/dad catch: [] : yes PP control planned: [] special requests: [] Initial Weight: Not Recorded Date Weight BP Urine PFHR FuHt Pres MCTX DilatioFetal SVisit NProvideComment rot ov n t ote r s EGA Ef Gluco faced se 11/10/1309 lb 108/64 Trace 160 Absent Nausea MH 8 6 oz improve 12 Ne d. Den w 6d gative ies VB, LOF. Visit Notes Visit Date: 02/08/18 No LOF, VB, CTX. Good Fm MARCEL AquinoC on 02/08/18 Visit Date: 12/07/17 Doing well. Denies VB, LOF MARCEL AquinoC on 12/07/17 Visit Date: 11/10/17 Nausea improved. Denies VB, LOF. SHAHZAD Aquino on 11/10/17 ACOG First Trimester First Trimester: Desire for , Alcohol, Tobacco Cessation, Illicit/Recreational Drug/Substance Use, Intimate Partner Violence, Barriers to care, Unstable Housing, Communication Barriers, Environmental/Work Hazards, Anticipated Course of Care, Toxoplasmosis Precations, Use of Any medications, Sexual activity, Exercise, Dental Care, Sauna/Hot tub use, Seat Belt use, Childbirth classes/Hospital facilities, , Travel, Indications for US and Screening for Aneuploidy Diagnostics Diagnostics Labs Blood Type O POSITIVE 10/19/17 Antibody Screen NEGATIVE 10/19/17 Hct 37.7 % (37-47) 10/19/17 Hgb 12.8 g/dl (12.0-15.0) 10/19/17 Obstetrics Ultrasound 01/02/18 Rubella IgG Antibody 65.2 IU/mL 10/19/17 RPR NONREACTIVE (NONREACTIVE) 10/19/17 Hep Bs Antigen Negative (Negative) 10/19/17 Chlam trachomat DNA PCR Negative (Negative) 10/13/17 N.gonorrhoeae DNA (PCR) Negative (Negative) 10/13/17 Glucose 1 Hr 50 gm 119 mg/dL (70-140) 10/19/17 Miscellaneous Test 11/14/17 Details: HIV: Urine Culture: Sequential Screen: NIPT Screen: ROS Const Reports system reviewed and no additional complaints, except as docu GI Denies nausea, Denies vomiting, Denies abdominal pain Exam Const General: cooperative Nutritional Appearance: well nourished GI Palpation: soft, nontender, other (gravid) Results [email or web address] Office Urine Glucose Negative Last Edit by Heather Braun on 02/08/18 15:26 Office Urine Protein 1+ Last Edit by Heather Braun on 02/08/18 15:26 Assessment AND Plan Problems 1. Supervision of high risk due to social problems in first trimester O09.71 PRR ALY 05/19/18 PC Renato (doesn't have custody of others) boyfriend- Emily 2. complicated by tobacco use in first trimester O99.331 encouraged cessation. 11/10 down to 3-4 cig/day 3. BMI 45.0-49.9, adult Z68.42 1st tm glucola discussed healthy weight gain in 4. screening encounter Z36.9 NT done 11/14/17 5. Trichimoniasis A59.9 Treated flagyl 12/07/17. Retest next visit Plan Orders placed: ÓSCAR for trich-may cause proteinuria if positive Reviewed of labor precautions, movement/kick counts ACOG trimester education reviewed and updated See problem list details for updated plan of care Gestational age appropriate handout given RTO: 3 weeks OB and 28 week labs Orders Orders: Medications New: Refilled: Coding Level of Care Code Off vis,est,level 3 Diagnoses Supervision of high risk due to social problems in first trimester O09. Trimester: first trimester complicated by tobacco use in first trimester O99.331 Trimester: first trimester BMI 45.0-49.9, adult Z68.42 screening encounter Z36.9 Trichimoniasis A59.9 02/08/18 1539 <Electronically signed by Nishi PIKE> Date Nishi PIKE Cosigner Signature: Date (if applicable) CC: DOWNTIME REPORT Observed: 01/19/2018 Status: F Source: VIJAYA 1:14 PM [facility] REPOSITORY [facility] Medical Records Department [address] [place] [address] Downtime Report MR#: [id number] Acct: [id number] Name: HANSEL CRUZ Rep #: [id number] : 1990 27 From: Trip Salazar PCP: Care Physician, No Primary Status: REG CLI This patient was seen during an EMR downtime January 02, 2018 - January 09, 2018. This patient may have a combination of paper and electronic documentation or all paper documentation. All documentation is viewable within the e-chart portion of [facility] for each patient visit. DOWNTIME REPORT Observed: 01/19/2018 Status: F Source: VIJAYA 11:54 AM [facility] Medical Records Department [address] [place] [address] Downtime Report MR#: [id number] Acct: [id number] Name: HANSEL CRUZ Rep #: [id number] : 1990 27 From: Trip Salazar PCP: Care Physician, No Primary Status: REG CLI This patient was seen during an EMR downtime January 02, 2018 - January 09, 2018. This patient may have a combination of paper and electronic documentation or all paper documentation. All documentation is viewable within the e-chart portion of [facility] for each patient visit. OB ANATOMY SCAN Observed: 01/06/2018 Status: F Source: VIJAYA 8:28 PM [facility] Imaging Services [address] [place] [address] OB Anatomy Scan MR#: [id number] Acct: [id number] Name: HANSEL CRUZ Rep #: [id number] : 1990 F 27 From: Moreno Lorenzo MD PCP: Care Physician, No Primary Status: REG CLI Study: OB Anatomy Scan Date of Exam: 01/02/18 Exam# [id number] Ordering Dr: Michaela Cota MD STUDY: SECOND AND THIRD TRIMESTER OBSTETRICAL ULTRASOUND REASON FOR EXAM: Female, 27 years old. ANATOMY LMP: TECHNIQUE: Transabdominal PRIOR ULTRASOUND: None. FINDINGS: There is a single intrauterine fetus. The fetus is in a cephalic presentation. There is demonstrated cardiac activity with a heart rate of 138 bpm. There is a normal amniotic fluid volume. The largest amniotic fluid pocket measures 7.4 cm. The placenta is posterior in location and is not low lying. There are Grade 1 placental changes. The cervix measures 55 mm in length. The adnexal regions are not visualized. BIOMETRY: BPD: 50mm: 21 weeks, 2 days HC: 187mm: 21 weeks, 0 days AC: 156mm: 21 weeks, 6 days FL: 35mm: 21 weeks, 0 days CI: 78 FL/BPD: 68 FL/AC: 22 HC/AC: 1.19 age by current US: 21 weeks, 1 days. ALY by current US: 05.14.18. Estimated weight: 382 grams, +/- 56 grams, 69 %. Age by LMP: 20 weeks, 3 days. ALY by LMP: 05.19.18. ANATOMY: Gender: Female Cranium: Normal lateral ventricles. Normal choroid plexus. Normal cerebellum. Normal cisterna magna. Normal face, nose and lips. Chest: Normal 4-chamber heart. Abdomen/Pelvis: Normal diaphragm. Normal stomach. Normal abdominal wall. Normal cord insertion. Normal 3 vessel cord. Normal kidneys. Normal bladder. Spine: Normal cervical spine. Normal thoracic spine. Normal lumbar spine. Normal sacrum. Extremities: Normal bilateral upper extremities. Normal bilateral lower extremities. US/OB Anatomy Scan IMPRESSION: There is a single live intrauterine with a heart rate of 138 bpm. age by current US: 21 weeks, 1 days. ALY by current US: 05.14.18. Normal anatomic survey. Electronically Signed: Moreno Lorenzo MD at 20:55 EDT , Service support , CC: No Primary Care Physician; Michaela Cota MD Machine Sign Writer: Signed URINE DRUG SCREEN Collected: 01/03/2018 Status: P Source: VIJAYA (VISTA) 3:53 PM [facility] REPOSITORY Order Comment: List of Drugs Taken or Suspected? UNK TYPE CODE TESTS RESULT OUT OF RANGE REFERENCE UNITS LAB L505.0075 TO BE Normal CONFIRMED Result Comment: CONFIRMATORY TESTING FOR ALL POSITIVE URINE DRUG SCREEN RESULTS WILL ONLY BE SENT OUT UPON PHYSICIAN ORDER. VISTA Urine Drug Screen methods provide only preliminary analytical test results. A more specific alternate chemical method must be used in order to obtain a confirmed analytical result. Gas chromatography/mass spectrometery (GC/MS) is the preferred confirmatory method. Clinical consideration and professional judgement should be applied to any drug of abuse test result, particularly when preliminary positive results are used. URINE TCA TESTING MUST BE ORDERED SEPARATELY. USE TEST MNEMONIC: UTCA Performed By: #### L505.5000 #### [facility] [address] [place], [address] FOOD RUNNER OFFICE VISIT Observed: 12/07/2017 Status: F Source: VIJAYA REPORT 4:15 PM [facility] REPOSITORY [facility] [address] [place] [address] OFFICE VISIT Date of Service: 12/07/17 MR#: [id number] Acct: [id number] Name: HANSEL CRUZ Rep #: [id number] : 1990 Provider: YOLY Sloan Age/Sex: 27/F [place] [facility] [place]: Signed Intake Vital Signs12/07/17 Height 5 ft 6 in 12/07/17 Weight: 310 lb 6 oz 12/07/17 Body Mass Index (BMI) 50.1 12/07/17 Blood Pressure 119/71 Intake Visit Reasons: 16 WEEK FU Professional Development Director Required: No Is patient in pain?: No Allergies No Known Allergies Allergy (Verified 12/07/17 15:22) Medications vitamin,calcium,ydoutthm-mvfg-vfdhz acid tablet 1 tab PO QDAY 11/10/17 [History Confirmed 12/07/17] Last Menstral Period: 08/10/17 Zika: Zika virus screening: Negative : No PFSH PFSH Medical History Preeclampsia (Acute) Social History Smoking Status: Current every day smoker alcohol intake: never substance use type: does not use caffeine: Yes frequency: 1-2 times per week seatbelt use: always do you feel safe at home: Yes additional social history: 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 DateName GA/Weeks Outcome Route Bth WeighInfant GeLabor LgtAnesthesiDel LocatProvider FOB t n h a n Delivery Date: On 10/13/17 @ 14:25 Michaela Cota has custody Delivery Date: On 10/13/17 @ 14:25 Michaela Cota adopted out Delivery Date: On 10/13/17 @ 14:24 Michaela Cota adopted out Delivery Date: On 10/13/17 @ 14:24 Michaela Cota grandma has custody Delivery Date: On 10/13/17 @ 14:26 Michaela Cota preeclampsia, grandmother has custody HPI 16 WEEK FU: Details: HANSEL CRUZ is a 27 year old who presents for routine OB visit. OB Visit ALY Calculator Estimated Delivery Date 05/19/18 Based on LMP (certain) 08/12/17 Current WG 16w 5d Number 1 Expected Delivery Route/Plan Specific Issue/Plans flu vaccine declined minichart given: yes tdap vaccine: [] rhogam: NA LARC form signed: [] labor support person:Emily pain management: natural cut cord/dad catch: [] : yes PP control planned: [] special requests: [] Initial Weight: Not Recorded Date Weight BP Urine PrFHR FuHt Pres MoCTX DilationFetal StVisit NoProviderComments E ot v te GA G Effac lucose ed Visit Notes Visit Date: 12/07/17 Doing well. Denies GILBERTO PEARSON NP-C on 12/07/17 Visit Date: 11/10/17 Nausea improved. Denies RASHID PEARSONF. SHAHZAD Aquino on 11/10/17 ACOG First Trimester First Trimester: Desire for , Alcohol, Tobacco Cessation, Illicit/Recreational Drug/Substance Use, Intimate Partner Violence, Barriers to care, Unstable Housing, Communication Barriers, Environmental/Work Hazards, Anticipated Course of Care, Toxoplasmosis Precations, Use of Any medications, Sexual activity, Exercise, Dental Care, Sauna/Hot tub use, Seat Belt use, Childbirth classes/Hospital facilities, , Travel, Indications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 OUT OF RANGE REFERENCE UNITS LAB L700.8000 <9 non-preg mIU/mL High HCG 80 QUANT. Performed By: #### L700.8000 #### [facility] [address] [place], [address] DISCHARGE INSTRUCTION Observed: 08/29/2017 Status: F Source: VIJAYA 6:03 PM [facility] REPOSITORY [facility] Medical Records Department [address] [place] [address] Discharge Instruction 08/29/17 180 MR#: [id number] Acct: [id number] Name: HANSEL CRUZ Gwen Rep #: [id number] : 1990 27 From: Qiana Valdes DO PCP: Mayte Davis MD Status: PRE ER ED Disposition - Plan for ED Patient: Chief Complaint: Dental Instructions: ED Tooth Pain Prescriptions: Hydrocodone Bitart/Apap 5-325 [[place] 5/325] 1 - 2 tab PO Q4H PRN PRN #20 tab PRN Reason: Pain Amoxicillin 500 mg PO TID #30 tab Referrals: Mayte Davis MD [Primary Care Provider] - Additional Instructions: see your dentist for follow up in 5-7 days What to do if you have Problems For any increased pain, shortness of breath, bleeding, nausea or vomiting, chest pain, or any unexpected problems, contact your Primary Care Provider. Call [facility] ([phone]) or report to the closest Emergency Room. Call 911 if necessary. 08/29/171802 <Electronically signed by Qiana Valdes DO> Date Qiana Valdes DO Cosigner Signature (If Indicated): Date CC: Mayte Davis MD EMERGENCY DEPARTMENT Observed: 08/29/2017 Status: F Source: RAYMOND SUMMARY 6:01 PM [facility] REPOSITORY [facility] Medical Records Department [address] [place] [address] Emergency Department Summary 08/29/17 1759 MR#: [id number] Acct: [id number] Name: HASNEL CRUZ Rep #: [id number] : 1990 27 From: Qiana Valdes DO PCP: Mayte Davis MD Status: PRE ER - ER Visit Summary Date of Service: 08/29/17 Chief Complaint: [Dental pain] History of Present Illness: The patient is a 27 F [presents to the emergency department chief complaint of dental pain off and on for several years. Patient states that she recently saw an oral surgeon who is going to see her again in September and determine if she will need 1 or 2 extraction surgeries to have her teeth removed. Patient states the pains been off and on but over the last 2 days she has developed discomfort to both right and left lower molars. Patient denies any trauma. She denies any fevers. Patient does complain of cold sensitivity.] Physical Examination: [HEENT-PERRLA, EOMI. Cranial nerves II through XII grossly intact. TMs clear. Mucous membranes moist. No adenopathy. Dentition- patient has broken and carried right and left lower second and third molars that are tender to palpation. There is no evidence of gingival erythema or abscess formation. No facial swelling noted. Cardiovascular-regular rate and rhythm without murmur or ectopy Lungs-clear to auscultation, chest wall stable without crepitus or subcu emphysema Abdomen-normoactive bowel sounds, soft, nontender, no rebound or rigidity, no peritoneal signs. Extremities-intact 4, normal range of motion, normal pulses, atraumatic] Test Results: [None indicated] Emergency Department Course and Treatment: [I did perform an OARS report on the patient and it was noted that she has only had one prescription in the last year for narcotics.] Treatment Plan: [Patient will be given a prescription for amoxicillin and [place] for pain.] Disposition: [Discharged to home in stable condition] Impression: [Dental pain] This note was generated with WiiiWaaaation software. It may contain incorrect words, spelling, and punctuation that were not noted in review of the chart prior to signing ED Disposition - Plan for ED Patient: Chief Complaint: Dental Referrals: Mayte Davis MD [Primary Care Provider] - What to do if you have Problems For any increased pain, shortness of breath, bleeding, nausea or vomiting, chest pain, or any unexpected problems, contact your Primary Care Provider. Call [facility] ([phone]) or report to the closest Emergency Room. Call 911 if necessary. 08/29/17 1801 <Electronically signed by Qiana Valdes DO> Date Qiana Valdes DO Cosigner Signature (If Indicated): Date CC: Mayte Davis MD ALLERGIES ALLERGIES DATE TYPE / CODE NAME / CODE REACTION SEVERITY SOURCE 08/18/2018 Drug No Known Unknown [facility] Allergy/4160 Allergies/F00 Hospital 90222(SNOMED 1760001(RXNOR Repository CT) M) ENCOUNTERS ENCOUNTERS ADMIT/DISCHARGE ACCOUNT ADMITTING ENCOUNTER LOCATION SOURCE NUMBER CLASS 08/18/2018/08/18/19 [id number] Emergency [address] ing:ED Repository 07/19/2018 [id number] Ambulatory [facility] ing:LABSPEC Repository 07/19/2018/07/19/20 [id number] Ambulatory BMSBuilding:B [place] [address] [place] Repository 07/07/2018/07/07/20 [id number] Ambulatory BMSBuilding:B [place] Repository 05/17/2018/05/19/20 [id number] Gerardo, Inpatient [place]a Encounter [facility] ing:WPRoom: Repository YE669Rtv: 1 05/17/2018 [id number] Gerardo Ambulatory [place] Repository 05/17/2018 [id number] Gerardo Ambulatory [place] Hospital Repository 05/15/2018 [id number] Ambulatory BMSBuilding:B [place] Hospital Repository 05/15/2018/05/15/20 [id number] Ambulatory BMSBuilding:B [place] 18 [facility] Hospital Repository 05/14/2018/05/14/20 [id number] Ambulatory [address] [facility] Hospital ing:WPOUTRoom Repository : WP015 05/09/2018 [id number] Ambulatory BMSBuilding:B [place] Hospital Repository 05/09/2018/05/09/20 [id number] Ambulatory BMSBuilding:B [place] 18 [facility] Hospital Repository 05/09/2018 [id number] Ambulatory [facility] Hospital ing:OPUS Repository 05/05/2018/05/05/20 [id number] [address] ing:WPOUTRoom Repository : WP017 05/02/2018/05/02/20 [id number] Ambulatory BMSBuilding:B [place] 18 [facility] Hospital Repository 04/25/2018 [id number] Ambulatory [facility] Hospital ing:LABSPEC Repository 04/25/2018/04/25/20 [id number] Ambulatory BMSBuilding:B [place] 18 [facility] Hospital Repository 04/20/2018 [id number] Ambulatory BMSBuilding:B [place] Hospital Repository 04/16/2018/04/16/20 [id number] Ambulatory [address] [facility] Hospital ing:WPOUT Repository 04/11/2018/04/11/20 [id number] Ambulatory BMSBuilding:B [place] 18 [facility] Hospital Repository 04/06/2018 [id number] Ambulatory BMSBuilding:B [place] Hospital Repository 04/05/2018/04/05/20 [id number] Ambulatory [address] [facility] Hospital ing:WPOUT Repository 04/05/2018/04/05/20 [id number] Ambulatory BMSBuilding:B [place] 18 [facility] Hospital Repository 04/03/2018/04/03/20 [id number] Ambulatory [address] [facility] Hospital ing:WPOUTRoom Repository : WP013 03/28/2018/03/28/20 [id number] Ambulatory BMSBuilding:B [place] 18 [facility] Repository 03/24/2018 [id number] Ambulatory [facility] Hospital[facility] Hospital ing:US Repository 03/14/2018/03/14/20 [id number] Ambulatory BMSBuilding:B [place] 18 [facility] Repository 03/14/2018 [id number] Ambulatory [facility] Hospital ing:LAB Repository 02/28/2018 [id number] Ambulatory [facility] Hospital ing:LABSPEC Repository 02/28/2018/02/29/20 [id number] Ambulatory BMSBuilding:B [place] [address] [facility] Repository 02/08/2018/02/09/20 [id number] Ambulatory BMSBuilding:B [place] 18 [facility] Hospital Repository 01/03/2018 [id number] Ambulatory [facility] Hospital ing:LABSPEC Repository 01/03/2018/01/04/20 [id number] Ambulatory BMSBuilding:B [place] 18 [facility] Hospital Repository 01/02/2018 [id number] Ambulatory [facility] Hospital ing:US Repository 12/07/2017/12/08/19 [id number] Ambulatory BMSBuilding:B [place] 18 [facility] Hospital Repository 11/14/2017 [id number] Ambulatory [facility] Hospital[facility] Hospital ing:LAB Repository 11/14/2017/11/15/19 [id number] [facility] Repository 11/10/2017/11/11/19 [id number] Ambulatory BMSBuilding:B [place] 18 [facility] Repository 10/19/2017 [id number] Ambulatory [facility] Hospital ing:LAB Repository 10/13/2017 [id number] Ambulatory [facility] ing:LABSPEC Repository 10/13/2017/10/14/19 [id number] Ambulatory BMSBuilding:B [place] 18 [facility] Repository 09/10/2017 [id number] Ambulatory [facility] ing:LAB Repository 09/08/2017 [id number] Ambulatory [facility] ing:POLAB3 Repository 09/08/2017/09/08/19 [id number] Ambulatory BMSBuilding:B [place] 18 [facility] Repository 08/29/2017/08/29/19 [id number] Emergency [address] ing:ED Repository PAYERS PAYERS ENCOUNTER GUARANTOR PAYER SUBSCRIBER SOURCE 08/18/2018 HANSEL [place] Primary HANSEL [place] [id number] [place] Insurance:CARESOURCEP HENRYDOB: [facility] Number: [id number] Hospital [address]Azl: [phone]) [id number] Repository [phone] (HP) Date:2018-08-18 [address]ATTN: [place] [address]JZ: 08/18/2018 Secondary NOT GIVENUNK [place] Insurance:SELF PAY [facility] Number: Effective Repository Date:2018-08-18 07/19/2018 HANSEL [place] Primary HANSEL Larsonoster [id number] [place] Insurance:CARESOURCEP HENRYDOB: [facility] Number: [id number] Hospital [address]Vzc: [phone]) [id number] Repository [phone] (HP) Date:2018-07-19[address]ATTN: [place] [address]OC: 07/19/2018 Secondary NOT GIVENUNK [place] Insurance:SELF PAY [facility] Number: Effective Repository Date:2018-07-19 07/19/2018 HANSEL [place]idalgo Primary HANSEL Hidalgo [place] [id number] [place] Insurance:CARESOURCEP [facility]: [id number] Hospital [address]Lvd: [phone]) [id number] Repository [phone] (HP) Date:2018-07-07P [address]ATTN: [place] [address]YK: 07/19/2018 Secondary NOT GIVENUNK [place] Insurance:SELF PAY [facility] Number: Effective Repository Date:2018-07-19 07/07/2018 HANSEL [place] Primary HANSEL Hidalgo [place] [id number] [place] Insurance:CARESOURCEP HENRYDOB: [facility] Number: [id number] Hospital [address]Jly: [phone] [id number] Repository [phone] () Date:2018-05-18P [address]ATTN: [place] [address]PI: 07/07/2018 Secondary NOT GIVENUNK [place] Insurance:SELF PAY [facility] Number: Effective Repository Date:2018-07-07 05/17/2018 HANSEL M Primary HANSEL M [place] [id number] [place] Insurance:CARESOURCEP HENRYDOB: [facility] Number: [id number] Hospital [address]Tiv: [phone]) [id number] Repository [phone] () Date:2018-05-17 [address]ATTN: [place] [address]SS: 05/17/2018 Secondary NOT GIVENUNK [place] Insurance:SELF PAY [facility] Number: Effective Repository Date:2018-05-17 05/17/2018 HANSEL Hidalgo Primary HANSEL Hidalgo [place] [id number] [place] Insurance:CARESOURCEP HENRYDOB: [facility] Number: [id number] Hospital [address]Liy: [phone]) [id number] Repository [phone] (HP) Date:2018-05-17 [address]ATTN: [place] [address]GA: 05/17/2018 Secondary NOT GIVENUNK [place] Insurance:SELF PAY [facility] Number: Effective Repository Date:2018-05-17 05/17/2018 HANSEL Hidalgo Primary HANSEL Hidalgo [place] [id number] [place] Insurance:CARESOURCEP HENRYDOB: [facility] Number: [id number] Hospital [address]Zow: [phone]) [id number] Repository [phone] (HP) Date:2018-05-17P [address]ATTN: [place] [address]XQ: 05/17/2018 Secondary NOT GIVENUNK [place] Insurance:SELF PAY [facility] Number: Effective Repository Date:2018-05-17 05/15/2018 HANSEL Hidalgo Primary NOT GIVENUNK [place] [id number] [place] Insurance:SELF PAY [facility] [address]Mus: (330) Number: Effective Repository [phone] () Date:2018-05-15 05/15/2018 HANSEL [place] Primary HANSEL [place]idalgo [place] [id number] [place] Insurance:CARESOURCEP HENRYDOB: [facility] Number: [id number] Hospital [address]Dby: [phone]) [id number] Repository [phone] () Date:2017-12-07P [address]ATTN: [place] [address]QI: 05/15/2018 Secondary NOT GIVENUNK [place] Insurance:SELF PAY [facility] Number: Effective Repository Date:2018-03-14 05/14/2018 HANSEL Hidalgo Primary HANSEL Hidalgo [place] [id number] [place] Insurance:CARESOURCEP HENRYDOB: [facility] Number: [id number] Hospital [address]Qeb: [phone]) [id number] Repository [phone] (HP) Date:2018-05-14P [address]ATTN: [place]S [place] [address]EM: 05/14/2018 Secondary NOT GIVENUNK [place] Insurance:SELF PAY [facility] Number: Effective Repository Date:2018-05-14 05/09/2018 HANSEL Hidalgo Primary NOT GIVENUNK [place] [id number] [place] Insurance:SELF PAY [facility] [address]Kin: (732) Number: Effective Repository [phone] () Date:2018-05-09 05/09/2018 HANSEL [place] Primary HANSEL Hidalgo [place] [id number] [place] Insurance:CARESOURCEP HENRYDOB: [facility] Number: [id number] Hospital [address]Awx: [phone]) [id number] Repository [phone] () Date:2017-12-07P [address]ATTN: [place] [address]ZH: 05/09/2018 Secondary NOT GIVENUNK [place] Insurance:SELF PAY [facility] Number: Effective Repository Date:2018-03-14 05/09/2018 HANSEL Hidalgo Primary HANSEL Hidalgo [place] [id number] [place] Insurance:CARESOURCEP HENRYDOB: [facility] Number: [id number] Hospital [address]Hrp: [phone]) [id number] Repository [phone] () Date:2018-05-02P [address]ATTN: [place] [address]YX: 05/09/2018 Secondary NOT GIVENUNK [place] Insurance:SELF PAY [facility] Number: Effective Repository Date:2018-05-02 05/05/2018 HANSEL [place]idalgo Primary HANSEL Hidalgo [place] [id number] [place] Insurance:CARESOURCEP HENRYDOB: [facility] Number: [id number] Hospital [address]Geb: [phone]) [id number] Repository [phone] () Date:2018-05-05P [address]ATTN: [place] [address]TU: 05/05/2018 Secondary NOT GIVENUNK [place] Insurance:SELF PAY [facility] Number: Effective Repository Date:2018-05-05 05/02/2018 HANSEL Hidalgo Primary HANSEL Hidalgo [place] [id number] [place] Insurance:CARESOURCEP HENRYDOB: [facility] Number: [id number] Hospital [address]Ufn: [phone]) [id number] Repository [phone] () Date:2017-12-07 [address]ATTN: [place] [address]QR: 05/02/2018 Secondary NOT GIVENUNK [place] Insurance:SELF PAY [facility] Number: Effective Repository Date:2018-03-14 04/25/2018 HANSEL Hidalgo Primary HANSEL Hidalgo [place] [id number] [place] Insurance:CARESOURCEP HENRYDOB: [facility] Number: [id number] Hospital [address]Umq: [phone]) [id number] Repository [phone] () Date:2018-04-25P [address]ATTN: [place] [address]IQ: 04/25/2018 Secondary NOT GIVENUNK [place] Insurance:SELF PAY [facility] Number: Effective Repository Date:2018-04-25 04/25/2018 HANSEL Hidalgo Primary HANSEL Hidalgo [place] [id number] [place] Insurance:CARESOURCEP HENRYDOB: [facility] Number: [id number] Hospital [address]Qbj: [phone] [id number] Repository [phone] () Date:2017-12-07 [address]ATTN: [place] [address]ZW: 04/25/2018 Secondary NOT GIVENUNK [place] Insurance:SELF PAY [facility] Number: Effective Repository Date:2018-03-14 04/20/2018 HANSEL Hidalgo Primary HANSEL Hidalgo [place] [id number] [place] Insurance:CARESOURCEP HENRYDOB: [facility] Number: [id number] Hospital [address]Mlw: ([phone]) [id number] Repository [phone] (HP) Date:2018-04-16P [address]ATTN: [place] [address]KB: 04/20/2018 Secondary NOT GIVENUNK [place] Insurance:SELF PAY [facility] Number: Effective Repository Date:2018-04-20 04/16/2018 HANSEL Hidalgo Primary HANSEL Hidalgo [place] [id number] [place] Insurance:CARESOURCEP HENRYDOB: [facility] Number: [id number] Hospital [address]Ccl: ([phone]) [id number] Repository [phone] (HP) Date:2018-04-16 [address]ATTN: [place] [address]AH: 04/16/2018 Secondary NOT GIVENUNK [place] Insurance:SELF PAY [facility] Number: Effective Repository Date:2018-04-16 04/11/2018 HANSEL [place] Primary HANSEL M [place] [id number] [place] Insurance:CARESOURCEP HENRYDOB: [facility] Number: [id number] Hospital [address]Yqj: ([phone]) [id number] Repository [phone] () Date:2017-12-07 [address]ATTN: [place] [address]XO: 04/11/2018 Secondary NOT GIVENUNK [place] Insurance:SELF PAY [facility] Number: Effective Repository Date:2018-03-14 04/06/2018 HANSEL Hidalgo Primary HANSEL Hidalgo [place] [id number] [place] Insurance:CARESOURCEP HENRYDOB: [facility] Number: [id number] Hospital [address]Ekz: [phone]) [id number] Repository [phone] (HP) Date:2018-04-05 [address]ATTN: [place] [address]TV: 04/06/2018 Secondary NOT GIVENUNK [place] Insurance:SELF PAY [facility] Number: Effective Repository Date:2018-04-06 04/05/2018 HANSEL [place] Primary HANSEL [place] [id number] [place] Insurance:CARESOURCEP HENRYDOB: [facility] Number: [id number] Hospital [address]Eyg: ([phone]) [id number] Repository [phone] () Date:2018-04-05P [address]ATTN: [place] [address]ZN: 04/05/2018 Secondary NOT GIVENUNK [place] Insurance:SELF PAY [facility] Number: Effective Repository Date:2018-04-05 04/05/2018 HANSEL [place]idalgo Primary HANSEL Hidal[place] [id number] [place] Insurance:CARESOURCEP HENRYDOB: [facility] Number: [id number] Hospital [address]Yif: ([phone]) [id number] Repository [phone] () Date:2018-03-14P [address]ATTN: [place] [address]QH: 04/05/2018 Secondary NOT GIVENUNK [place] Insurance:SELF PAY [facility] Number: Effective Repository Date:2018-03-14 04/03/2018 HANSEL [place] Primary HANSEL Hidalgo [place] [id number] [place] Insurance:CARESOURCEP HENRYDOB: [facility] Number: [id number] Hospital [address]Moz: ([phone]) [id number] Repository [phone] () Date:2018-04-03[address]ATTN: [place] [address]DS: 04/03/2018 Secondary NOT GIVENUNK [place] Insurance:SELF PAY [facility] Number: Effective Repository Date:2018-04-03 03/28/2018 HANSEL Hidalgo Primary HANSEL Hidalgo Vijaya [id number] [place] Insurance:CARESOURCEP HENRYDOB: [facility] Number: [id number] Hospital [address]390Zbc: [phone] [id number] Repository [phone] (HP) Date:2017-12-[address]ATTN: [place] [address]GW: 03/28/2018 Secondary NOT GIVENUNK [place] Insurance:SELF PAY [facility] Number: Effective Repository Date:2018-03-23 03/24/2018 HANSEL Hidalgo Primary HANSEL M Vijaya [id number] [place] Insurance:CARESOURCEP HENRYDOB: [facility] Number: [id number] Hospital [address]30[address]Xnv: [phone] [id number] Repository [phone] (HP) Date:2018-03-15 [address]ATTN: [place] [address]CY: 03/24/2018 Secondary NOT GIVENUNK [place] Insurance:SELF PAY [facility] Number: Effective Repository Date:2018-03-15 03/14/2018 HANSEL Hidalgo Primary HANSEL M Vijaya [id number] [place] Insurance:CARESOURCEP HENRYDOB: [facility] Number: [id number] Hospital [address]Adm: [phone] [id number] Repository [phone] (HP) Date:2017-12-[address]ATTN: [place] [address]AH: 03/14/2018 Secondary NOT GIVENUNK [place] Insurance:SELF PAY [facility] Number: Effective Repository Date:2018-03-14 03/14/2018 HANSEL Hidaglo Primary HANSEL M Vijaya [id number] [place] Insurance:CARESOURCEP HENRYDOB: [facility] Number: [id number] Hospital [address]Gck: [phone] [id number] Repository [phone] (HP) Date:2018-03-14[address]ATTN: [place] [address]UV: 03/14/2018 Secondary NOT GIVENUNK [place] Insurance:SELF PAY [facility] Number: Effective Repository Date:2018-03-14 02/28/2018 HANSEL Hidalgo Primary HANSEL Lilly [id number] [place] Insurance:CARESOURCEP HENRYDOB: [facility] Number: [id number] Hospital [address]Rtw: [phone] [id number] Repository [phone] (HP) Date:2018-02-28 [address]ATTN: [place] [address]GY: 02/28/2018 Secondary NOT GIVENUNK [place] Insurance:SELF PAY [facility] Number: Effective Repository Date:2018-02-28 02/28/2018 HANSEL Hidalgo Primary HANSEL Lilly [id number] [place] Insurance:CARESOURCEP HENRYDOB: [facility] Number: [id number] Hospital [address]Pwg: [phone] [id number] Repository [phone] () Date:2017-12-[address]ATTN: [place] [address]GV: 02/28/2018 Secondary NOT GIVENUNK [place] Insurance:SELF PAY [facility] Number: Effective Repository Date:2018-02-28 02/08/2018 HANSEL Hidalgo Primary HANSEL Lilly [id number] [place] Insurance:CARESOURCEP HENRYDOB: [facility] Number: [id number] Hospital [address]Qza: [phone] [id number] Repository [phone] (HP) Date:2017-12-[address]ATTN: [place] [address]IA: 02/08/2018 Secondary NOT GIVENUNK [place] Insurance:SELF PAY [facility] Number: Effective Repository Date:2018-02-08 01/03/2018 HANSEL Hidalgo Primary HANSEL Hidalgo [place] [id number] [place] Insurance:CARESOURCEP HENRYDOB: [facility] Number: [id number] Hospital [address]Njg: [phone]) [id number] Repository [phone] () Date:2018-01-03[address]ATTN: [place] [address]LP: 01/03/2018 Secondary NOT GIVENUNK [place] Insurance:SELF PAY [facility] Number: Effective Repository Date:2018-01-03 01/03/2018 HANSEL Hidalgo Primary HANSEL Hidalgo [place] [id number] [place] Insurance:CARESOURCEP HENRYDOB: [facility] Number: [id number] Hospital [address]Lys: [phone] [id number] Repository [phone] () Date:2017-12-[address]ATTN: [place] [address]SF: 01/03/2018 Secondary NOT GIVENUNK [place] Insurance:SELF PAY [facility] Number: Effective Repository Date:2018-01-12 01/02/2018 HANSEL Hidalgo Primary HANSEL Hidalgo Vijaya [id number] [place] Insurance:CARESOURCEP HENRYDOB: [facility] Number: [id number] Hospital [address]Hrr: [phone]) [id number] Repository [phone] () Date:2017-11-10 [address]ATTN: [place] [address]HY: 01/02/2018 Secondary NOT GIVENUNK [place] Insurance:SELF PAY [facility] Number: Effective Repository Date:2017-11-10 12/07/2017 HANSEL Hidalgo Primary HANSEL Larsonoster [id number] [place] Insurance:CARESOURCEP HENRYDOB: [facility] Number: [id number] Hospital [address]Swx: [phone]) [id number] Repository [phone] (HP) Date:2017-11-10 [address]ATTN: [place] [address]RH: 12/07/2017 Secondary NOT GIVENUNK [place] Insurance:SELF PAY [facility] Number: Effective Repository Date:2017-12-07 11/14/2017 HANSEL M Primary HANSEL M Vijaya [id number] [place] Insurance:CARESOURCEP HENRYDOB: [facility] Number: [id number] Hospital [address]Vcf: [phone]) [id number] Repository [phone] () Date:2017-11-14 [address]: [place] [address]RI: 11/14/2017 Secondary NOT GIVENUNK [place] Insurance:SELF PAY [facility] Number: Effective Repository Date:2017-11-14 11/14/2017 HANSEL [facility] HANSEL [facility] HENRYDOB: Insurance:CARESOURCEP HENRYDOB: [facility] Number: [id number] Repository [place] [id number] [place], [place] Date: [place] [address]Wdu: [phone] () 11/10/2017 HANSEL M Primary HANSEL M Vijaya [id number] [place] Insurance:CARESOURCEP HENRYDOB: [facility] Number: [id number] Hospital [address]Jek: [phone]) [id number] Repository [phone] () Date:2017-10-13 [address]: [place] [address]TC: 11/10/2017 Secondary NOT GIVENUNK [place] Insurance:SELF PAY [facility] Number: Effective Repository Date:2017-11-10 10/19/2017 HANSEL M Primary HANSEL M [place] [id number] [place] Insurance:CARESOURCEP [facility]: [id number] Hospital [address]Xfd: [phone]) [id number] Repository [phone] () Date:2017-10-19[address]ATTN: [place] [address]YL: 10/19/2017 Secondary NOT GIVENUNK [place] Insurance:SELF PAY [facility] Number: Effective Repository Date:2017-10-19 10/13/2017 HANSEL Hidalgo Primary HANSEL Hidalgo Vijaya [id number] [place] Insurance:CARESOURCEP HENRYDOB: [facility] Number: [id number] Hospital [address]Dhy: [phone]) [id number] Repository [phone] () Date:2017-10-13[address]ATTN: [place] [address]YR: 10/13/2017 Secondary NOT GIVENUNK [place] Insurance:SELF PAY [facility] Number: Effective Repository Date:2017-10-13 10/13/2017 HANSEL Hidalgo Primary HANSEL Hidalgo Vijaya [id number] [place] Insurance:CARESOURCEP HENRYDOB: [facility] Number: [id number] Hospital [address]Ygg: [phone]) [id number] Repository [phone] () Date:2017-09-12 [address]N: [place] [address]RL: 10/13/2017 Secondary NOT GIVENUNK [place] Insurance:SELF PAY [facility] Number: Effective Repository Date:2017-09-12 09/10/2017 HANSEL Hidalgo Primary HANSEL Hidalgo Vijaya [id number] [place] Insurance:CARESOURCEP HENRYDOB: [facility] Number: [id number] Hospital [address]Ocs: [phone]) [id number] Repository [phone] () Date:2017-09-10[address]ATTN: [place] [address]IO: 09/10/2017 Secondary NOT GIVENUNK [place] Insurance:SELF PAY [facility] Number: Effective Repository Date:2017-09-10 09/08/2017 HANSEL Hidalgo Primary HANSEL Hidalgo [place] [id number] [place] Insurance:CARESOURCEP HENRYDOB: [facility] Number: [id number] Hospital [address]Fwa: [phone]) [id number] Repository [phone] () Date:2017-09-08[address]ATTN: [place] [address]GF: 09/08/2017 Secondary NOT GIVENUNK [place] Insurance:SELF PAY [facility] Number: Effective Repository Date:2017-09-08 09/08/2017 HANSEL Hidalgo Primary HANSEL Hidalgo [place] [id number] [place] Insurance:CARESOURCEP HENRYDOB: [facility] Number: [id number] Hospital [address]Byc: [phone] [id number] Repository [phone] () Date:2017-09-01[address]ATTN: [place] [address]TC: 09/08/2017 Secondary NOT GIVENUNK [place] Insurance:SELF PAY [facility] Number: Effective Repository Date:2017-09-01 08/29/2017 Hansel Hidalgo Primary HANSEL Hidalgo Vijaya [id number] [place] Insurance:CARESOURCEP HENRYDOB: [facility] Number: [id number] Hospital [address]Pku: NONE [id number] Repository (HP) Date:2017-08-29P [address]ATTN: [place] [address]SM: 08/29/2017 Secondary NOT GIVENUNK [place] Insurance:SELF PAY [facility] Number: Effective Repository Date:2017-08-29
== END 2018-08-18 12:56 | disposition home or self-care (01) ==
LOC: ED 12:32
PROVIDERS: Emergency Provider Emergency Medicine; Family Provider Family Medicine; PCP Family Medicine
DX: K08.89 Other specified disorders of teeth and supporting structures (principal)
CPT/HCPCS: 99282

== ENCOUNTER 2018-09-10 09:26 | Emergency (ER) | payer MEDICAID, SELFPAY ==
[2018-09-10 09:28] VITALS: BP 134/78; PULSE 82; RESP 16; TEMP 36.4; O2SAT 96; BMI 45.1
--- NOTE | 2018-09-10 09:47 | ED.VISSUMM ---
- ER Visit Summary Date of Service: 09/10/18 Chief Complaint: Right lower molar broke History of Present Illness: The patient is a 28 F who was referred by local dentist to oral maxillofacial surgeon in [place]. Patient states she was contacted by the oral maxillofacial surgeon and her appointment was canceled because of family emergency . She was rescheduled for October 05. Patient denies fever, chills night sweats. Patient denies inability to open or close her mouth. Patient denies change in voice. Patient denies history rheumatic fever, murmur, SPE, IV drug use or being immune suppressed. Patient reports pain worse with cold. Patient denies allergies. Physical Examination: Vital signs noted and remarkable for elevated blood pressure 1 3478. BMI is 45.2. Patient has extensive dental caries with erosion to gumline multiple right and left lower molars and bicuspids. There is evidence of gingivitis. There is no evidence of Ross's angina. There is no submental, submandibular or cervical lymphadenopathy. Trachea is midline. There is no stridor. Heart is regular without murmur, gallop or rub. Lungs are clear to auscultation. There is no evidence of facial cellulitis. Test Results: None were obtained Emergency Department Course and Treatment: Patient was treated with clindamycin and Naprosyn in the department. Treatment Plan: Prescription for clindamycin, Naprosyn and [place]. Patient was informed she would not receive pain medicine to cover her until October 05. She would have to contact her dentist or the oral maxillofacial surgeon in [place] for pain management Disposition: Discharge to home Impression: Numerous dental caries with exposure of pulp Fractured right lower molar secondary to dental decay This note was generated with [employer] dictation software. It may contain incorrect words, spelling, and punctuation that were not noted in review of the chart prior to signing ED Disposition - Plan for ED Patient: Disposition: Home or Assisted Living Instructions: Dental Abscess, ED Cavity Dental Prescriptions: Hydrocodone Bitart/Apap 5-325 [[place] 5MG-325MG] 1 tablet PO Q6H PRN PRN 3 Days #10 tablet PRN Reason: Pain Naproxen [Naprosyn] 500 mg PO BID #20 tablet Clindamycin HCl [Cleocin] 300 mg PO Q6H #28 capsule Referrals: Mayte Davis MD [Primary Care Provider] - Additional Instructions: You will need to follow-up with your primary care provider or dentist for pain management if medication prescribed does not alleviate your discomfort. Your prescription was electronically transmitted to [facility] your designated pharmacy of choice.
[2018-09-10] MEDS: Naproxen 250 MG Tablet 500 MG PO (10:04)
== END 2018-09-10 10:08 | disposition home or self-care (01) ==
PROVIDERS: Emergency Provider Emergency Medicine; Family Provider Family Medicine; PCP Family Medicine
DX: S02.5XXA Fracture of tooth (traumatic), initial encounter for closed fracture (principal); K02.9 Dental caries, unspecified; K04.7 Periapical abscess without sinus; K05.10 Chronic gingivitis, plaque induced; X58.XXXA Exposure to other specified factors, initial encounter; Y93.9 Activity, unspecified; Y92.9 Unspecified place or not applicable; E66.9 Obesity, unspecified; Z68.42 Body mass index [BMI] 45.0-49.9, adult
CPT/HCPCS: 99283

== ENCOUNTER → 2018-12-12 12:52 | Outpatient (CLI) | payer MEDICAID, SELFPAY ==
[2018-12-12 08:03] VITALS: BMI 45.1
== END ==
PROVIDERS: Referring Provider Physician Assistant Surgical; Visit Provider Physician Assistant Surgical
DX: J02.9 Acute pharyngitis, unspecified (principal)
CPT/HCPCS: 87081

== ENCOUNTER 2019-01-07 21:11 | Emergency (ER) | payer MEDICAID, SELFPAY ==
[2018-12-12 08:03] VITALS: BMI 45.1
[2019-01-07 21:11] VITALS: BP 121/73; PULSE 101; RESP 19; TEMP 37.1; O2SAT 95; BMI 46.7
--- NOTE | 2019-01-07 22:21 | US_ITS ---
HISTORY: abd pain EXAMINATION: US Abdomen RUQ (limited) TECHNIQUE: Gupta scale and color doppler imaging was performed of the gallbladder and right upper quadrant abdomen. COMPARISON: None FINDINGS: The gallbladder is partly contracted and shows no internal echoes, wall thickening, or pericholecystic edema. No intrahepatic or extrahepatic biliary dilatation. The common bile duct measures 2 mm in diameter which is normal. Visualized portions of the liver and pancreas are unremarkable. No ascites. The right kidney is visualized and appears normal. No hydronephrosis. Negative sonographic Silva sign. US/Gallbladder IMPRESSION: Normal gallbladder ultrasound. at 0007 Reported and signed by: Isiah Mayo MD Electronically Signed: Isiah Mayo, at 0:06 EDT Tel , Service support ,
[2019-01-07 22:38] LABS: Absolute Lymphocyte Count 1.65 X10^3/ul (0.83-4.51); Absolute Neutrophil Count 5.9 X10^3/uL (2.0-7.7); Basophil# 0.03 X10^3/uL; Basophil% 0.4 % (0-1); Eosinophils% 2.4 % (0-5); Hemoglobin 13.9 g/dl (12.0-15.0); Lymphocyte # 1.65 X10^3/ul (4.0); Mean Corp Hgb Conc 34.8 g/gl (32-36); Mean Corpuscular Hgb 30.2 pg (27.0-32.0); Mean Corpuscular Volume 86.8 fL (81-99); Mean Platelet Vol. 8.5 fl (6.2-12.0); Monocyte# 0.51 X10^3/uL; Monocyte% 6.2 % (0-10); Neutrophil # 5.85 X10^3/uL (2.7-7.7); Neutrophil % 70.9 % (47-70); POSITIVE COUNT NO; POSITIVE DIFFERENTIAL NO; POSITIVE MORPHOLOGY NO; Platelet Count 245 K/mm3 (150-450); RBC Distribution Width CV 13.6 % (11.6-14.6); RBC Distribution Width SD 42.9 fl (35.1-43.9); Red Blood Count 4.61 M/mm3 (4.2-5.4); White Blood Count 8.3 K/mm3 (4.4-11.0)
[2019-01-07] MEDS: Ondansetron 4 MG/2 ML Vial IV (22:44)
[2019-01-07] MEDS: 0.9% Normal Saline 1,000 ML 1000 ML IV (22:44)
[2019-01-07 22:56] LABS: ALB/GLOB Ratio 0.8 RATIO (0.9-2.4); AST(SGOT) 14 U/L (15-37); Alanine Aminotransfer ALT/SGPT 18 U/L (13-56); Albumin, Serum 3.3 g/dL (3.2-5.0); Alkaline Phosphatase 140 U/L (45-117); Anion Gap 6 (5-15); BUN 10 mg/dL (7-18); BUN/Creat Ratio 11.7 RATIO (10-20); Calcium,Total 8.1 mg/dL (8.5-10.1); Chloride 109 mmol/L (98-107); Creatinine, Serum 0.86 mg/dL (0.55-1.02); EST Glomerular Filtration Rate 83 mL/min (>60); Est Glom Filt Rate - Afr Amer 100 mL/min (>60); Estimated Creatinine Clearance 90.36 ml/min; Globulin 4.1 g/dL (2.2-4.2); Glucose 101 mg/dL (74-106); Lipase 58 U/L (73-393); Potassium 3.5 mmol/L (3.5-5.1); Protein, Total 7.4 g/dL (6.4-8.2); Sodium Level 138 mmol/L (136-145)
[2019-01-07 23:58] VITALS: BP 96/73; PULSE 71; RESP 16; O2SAT 96
--- NOTE | 2019-01-08 00:15 | ED.VISSUMM ---
- ER Visit Summary Date of Service: 01/08/19 Chief Complaint: Abdominal pain History of Present Illness: The patient is a 28 F presents with epigastric pain that started yesterday. No vomiting although she has some nausea. No fever chills no diarrhea. Physical Examination: Patient has epigastric and right upper quadrant pain which is reproducible. There is no lower abdominal pain no flank pain she has clear lungs bilaterally. Otherwise normal exam Emergency Department Course and Treatment: Patient has a normal work-up including ultrasound and lipase. This is likely gastritis I will treat as such. Discharge stable condition Impression: [Epigastric pain] This note was generated with [employer] dictation software. It may contain incorrect words, spelling, and punctuation that were not noted in review of the chart prior to signing ED Disposition - Plan for ED Patient: Disposition: Home or Assisted Living Prescriptions: Omeprazole 20 mg PO DAILY #30 capsule. Referrals: Jhoana Davies MD [STAFF PHYSICIAN] - 3-5 Days
--- NOTE | 2019-01-08 00:18 | ED.DCSUM_ITS ---
- ER Visit Summary Date of Service: 01/08/19 Chief Complaint: Abdominal pain History of Present Illness: The patient is a 28 F presents with epigastric pain that started yesterday. No vomiting although she has some nausea. No fever chills no diarrhea. Physical Examination: Patient has epigastric and right upper quadrant pain which is reproducible. There is no lower abdominal pain no flank pain she has clear lungs bilaterally. Otherwise normal exam Emergency Department Course and Treatment: Patient has a normal work-up including ultrasound and lipase. This is likely gastritis I will treat as such. Discharge stable condition Impression: [Epigastric pain] This note was generated with [employer] dictation software. It may contain incorrect words, spelling, and punctuation that were not noted in review of the chart prior to signing ED Disposition - Plan for ED Patient: Disposition: Home or Assisted Living Prescriptions: Omeprazole 20 mg PO DAILY #30 capsule. Referrals: Jhoana Davies MD [STAFF PHYSICIAN] - 3-5 Days
--- NOTE | 2019-01-08 00:18 | ED.DEP ---
ED Disposition - Plan for ED Patient: Disposition: Home or Assisted Living Instructions: ED Abdominal Pain Unkn Cause Prescriptions: Omeprazole 20 mg PO DAILY #30 capsule.dr Referrals: Jhoana Davies MD [STAFF PHYSICIAN] - 3-5 Days
[2019-01-08 00:24] VITALS: BP 108/68; PULSE 78; RESP 17; O2SAT 99
== END 2019-01-08 00:25 | disposition home or self-care (01) ==
PROVIDERS: Emergency Provider Emergency Medicine
DX: R10.13 Epigastric pain (principal); Z72.0 Tobacco use
CPT/HCPCS: 76705; 80053; 83690; 85025; 96361; 96374; 99283; J7030; A4216; J2405

== ENCOUNTER 2021-02-08 00:07 | Emergency (ER) | payer MEDICAID, SELFPAY ==
[2021-02-08 00:09] VITALS: BP 139/102; PULSE 75; RESP 15; TEMP 35.7; O2SAT 94; BMI 57.0
--- NOTE | 2021-02-08 00:21 | EDS_ITS ---
HPI History of Present Illness Chief Complaint: Lower Extremity Injury Narrative Narrative: Patient presents with left knee pain, she has been overusing it at work bending and picking up stuff. She has just started a new job and she is now on her feet all day. She has no hip pain, she has no other injuries. She is still able to ambulate. [facility] Medical History (Updated 02/08/21 @ 00:[address] Kp Rosado MD) Gave to child recently Preeclampsia SOB (shortness of breath) Home Medications levonorgestrel [Mirena] 1 ea IY X1 01/07/19 [History Last Taken Unknown] Allergy/AdvReac Type Severity Reaction Status Date / Time No Known Allergies Allergy Verified 02/08/21 00:13 Social History (Updated 12/12/18 @ 08:39 by Noel ROJAS, CRYSTAL) Smoking Status: Current every day smoker tobacco type: cigarettes alcohol intake: never substance use type: does not use caffeine: Yes frequency: 1-2 times per week seatbelt use: always do you feel safe at home: Yes additional social history: Emmanuel- unemployed Single- [employer] in [employer] 29 ROS ROS ED ROS Narrative Past medical history: none Medications: Reviewed Social history: Noncontributory Review of systems: Musculoskeletal: Knee pain as in HPI Skin: No abrasions or lacerations Neurological: No weakness or paresthesias Hematologic: No easy bleeding or easy bruising EXAM Physical Exam Narrative Exam Narrative: Physical exam General: Patient does not appear in significant distress . Head: Normocephalic, Atraumatic Cardiovascular: Normal distal pulses Back: Nontender, Normal Inspection. Extremities: Left knee, mostly in lateral patellar region, there is no tenderness over the medial or lateral meniscus or lateral or medial collateral ligaments. She has no pain on anterior posterior medial or lateral stressors she has no laxity on the stressors. She has a normal extensor mechanism. She does not have any effusion. Skin: No abrasions, no lacerations Neurological: Normal strength and sensation Const Vital Signs: 02/08/21 00:09 Temperature 96.3 F L Temperature Source Oral Pulse Rate 75 Respiratory Rate 15 Blood Pressure 139/102 H Blood Pressure Mean 114 Pulse Ox 94 Oxygen Delivery Method Room Air MDM MDM MDM Narrative Medical decision making narrative: Patient has an otherwise unremarkable exam, she likely has a knee strain, I taught her some exercises and told her to rest for the next few days otherwise she is to follow-up with her PCP either for physical therapy or some sort of strength training therapy. Discharge Plan Triage Chief Complaint: Lower Extremity Injury ED Provider: Kp Rosado Dx/Rx/DC Orders Clinical Impression: Knee strain Instructions: ED Knee Sprain Prescriptions: No Action Mirena 1 EACH intrauterine device 1 ea IY X1 RF: 0 Primary Care Provider: Care Physician,No Primary Referrals: Care Physician,No Primary [Primary Care Provider] - 3-5 Days Disposition Disposition: Home, Self Care
== END 2021-02-08 00:37 | disposition home or self-care (01) ==
LOC: ED 00:36
PROVIDERS: Emergency Provider Emergency Medicine
DX: S86.912A Strain of unspecified muscle(s) and tendon(s) at lower leg level, left leg, initial encounter (principal); F17.210 Nicotine dependence, cigarettes, uncomplicated; X58.XXXA Exposure to other specified factors, initial encounter; Z79.3 Long term (current) use of hormonal contraceptives
CPT/HCPCS: 99282